=== PATIENT | female | born 1940 | race Caucasian/White ===

== ENCOUNTER 2018-05-14 05:02 | Inpatient (IN) ==
[2018-05-14] MEDS ORDERED: fentaNYL citrate 100 MCG/2 ML VIAL IV STA ×2 (05:20→07:53)
[2018-05-14 05:49] LABS: iSTAT Hemoglobin 14.6 g/dl (12.0-16.0); iSTAT Ionized Calcium 1.07 mmol/l (1.12-1.32)
[2018-05-14] MEDS ORDERED: IOVERSOL 100ml IV PRN (06:15)
--- NOTE | 2018-05-14 07:06 | CT Scan Report ---
CT hand RT w con HISTORY: 78 years-old Female large hematoma, trauma, back thru mid forearm patient presents with acu te pain and swelling of the right hand with reported soft tissue hematoma. Concern for soft tissue in fection. COMPARISON: Right wrist radiographs 10/07/2017 TECHNIQUE: Multiple axial CT images of the right hand were obtained following the intravenous adminis tration of 92 mL Optiray 320 IV contrast. A dose lowering technique was used consistent with the prin cipals of ALARA. FINDINGS: Study is limited secondary to positioning with patient's arm adjacent to the lateral right abdominal wall. Cholelithiasis incidentally noted. There is a large hematoma noted about the dorsum of the hand and wrist measuring up to 2.6 x 7.7 x 9.2 cm. Moderate subcutaneous edema with additional subcutaneo us hemorrhage tracks along the dorsum of the distal forearm. No opaque foreign body. Severe degenerative changes about the distal radioulnar joint with moderate triscaphe and first carpo metacarpal osteoarthritis. Mild radiocarpal osteoarthritis. Subcortical cystic changes are noted abou t the carpal bones. Moderate degenerative changes are seen throughout the interphalangeal joints with mild multidigit metacarpophalangeal osteoarthritis. No acute fracture or dislocation is identified. IMPRESSION: 1. Limited exam secondary to positioning. 2. No acute fracture or dislocation identified. 3. Large hematoma about the dorsum of the hand extending into the distal forearm measures up to 7.7 c m. 4. Osteopenia with degenerative changes as above. 5. Cholelithiasis. The above report was generated using voice recognition software. It may contain grammatical, syntax o r spelling errors. Electronically signed by: Ranjan Burden M.D. 05/14/2018 7:05 AM
--- NOTE | 2018-05-14 07:39 | Emergency Department Note ---
Entered by Randy Liao acting as a scribe for History of Present Illness General Chief complaint: Hand Injury/Pain Stated complaint: RIGHT HAND SWOLLEN,BRUISED HIT ON CUPPARD Time Seen by Provider: 05/14/18 05:06 Source: patient History of Present Illness Provider complaint: Hand pain Onset (ago): day(s) 2 Location: upper extremity Radiation: non-radiation Pain Consistency: + other (Worsening) Current Pain Intensity: 7 (7.5) Relieved By: + none Associated symptoms: + other (Dizziness) The patient is a 78 year old female who presents to the Emergency Room with complaints of worsening right hand pain and swelling that started 2 days ago, after hitting it against the cupboard. The patient is currently on Coumadin for her history of Afib and CHF and her last Coumadin level, which she took the day before this happened, was 2.4. She states when she first hit her hand she iced it, which did help. However yesterday at 11:00, her hand swelled and started hurting even more while she was typing on her computer. She currently rates the pain as a 7.5/10 and has tried Ibuprofen. She denies any numbness, tingling or radiating pain but does state she has been dizzy. Home Medications Home Medications Medication Instructions Recorded Confirmed Type aspirin [Aspir-81] 81 mg PO DAILY 05/14/18 05/14/18 History carvedilol 25 mg PO BID 05/14/18 05/14/18 History triamterene-hydrochlorothiazid 1 cap PO DAILY 05/14/18 05/14/18 History warfarin 3 mg PO 4XWK 05/14/18 05/14/18 History warfarin 4.5 mg PO 3XWK 05/14/18 05/14/18 History Allergies Allergy/AdvReac Type Severity Reaction Status Date / Time cephalexin Allergy . Verified 05/14/18 07:08 erythromycin base AdvReac Unknown ,HEARING Verified 05/14/18 07:05 LOSS Penicillins AdvReac Unknown Numbness Verified 05/14/18 07:07 Past Med/Surg History Medical History Atrial fibrillation Breast carcinoma CHF (congestive heart failure) Left bundle branch block (LBBB) Lyme disease Non-ischemic cardiomyopathy Surgical History AICD (automatic cardioverter/defibrillator) present H/O hysterectomy for benign disease History of cardioversion History of colonoscopy History of partial colectomy History of partial mastectomy of both breasts Family History Mother Breast CA Other Family history non-contributory Social History Current Living Situation: Alone Current Living Situation Comment: son with her today Other Information That Helps Us Care for You: No Feels Safe at Home: Yes Safety Concerns: Feels Safe At This Time Smoking Status: Former smoker Tobacco Type: cigarettes Do You Dip or Chew Tobacco: No Smoking End Date: 1980 Second Hand Exposure: No Tobacco Cessation Education Requested by Patient: No Hx Alcohol Use: Yes (wine) Alcohol type: wine Alcohol Intake Frequency: other Hx Substance Use: No Beliefs That Will Affect Care: None Preferred Language: Montserratian Communication Ability: Effective Research Worker Encyclopedia Required: No Review of Systems See HPI for pertinent positives & negatives. and A total of 10 systems reviewed and were otherwise negative Physical Exam Vital Signs Vital Signs - 24 hr 05/14/18 05:10 05/14/18 06:07 05/14/18 06:54 Temperature 36.5 C Temperature Source Oral Sepsis Recent Fever Within 48 Hours No Sepsis Action Taken by Nursing No Action Required Pulse Rate 75 Pulse Rate [Apical] Pulse Rate [Left Finger] 74 70 Pulse Rhythm [Apical] Pulse Rhythm [Left Finger] Regular Pulse Strength [Left Finger] Normal Respiratory Rate 18 18 18 Respiratory Effort / Characteristics Non-Labored Spontaneous Non-Labored Spontaneous Non-Labored Spontaneous Respiratory Depth Normal Normal Normal Respiratory Pattern Regular Regular Blood Pressure 158/100 H Blood Pressure [Left Arm] 135/89 139/85 Blood Pressure Mean 119 Blood Pressure Mean [Left Arm] 104 103 Blood Pressure Position Sitting Blood Pressure Position [Left Arm] Lying Pulse Oximetry 96 96 98 Oxygen Delivery Method Room Air Room Air Room Air Oxygen Flow Rate 05/14/18 07:59 05/14/18 10:03 05/14/18 12:15 Temperature Temperature Source Sepsis Recent Fever Within 48 Hours Sepsis Action Taken by Nursing Pulse Rate 80 Pulse Rate [Apical] Pulse Rate [Left Finger] 70 70 Pulse Rhythm [Apical] Pulse Rhythm [Left Finger] Pulse Strength [Left Finger] Respiratory Rate 18 18 20 Respiratory Effort / Characteristics Non-Labored Spontaneous Non-Labored Spontaneous Respiratory Depth Normal Normal Respiratory Pattern Regular Regular Blood Pressure 144/78 H Blood Pressure [Left Arm] 144/98 H 131/69 Blood Pressure Mean Blood Pressure Mean [Left Arm] 113 89 Blood Pressure Position Blood Pressure Position [Left Arm] Lying Lying Pulse Oximetry 100 98 96 Oxygen Delivery Method Room Air Room Air Room Air Oxygen Flow Rate 05/14/18 12:25 05/14/18 15:01 05/14/18 15:10 Temperature 36.6 C 36.9 C Temperature Source Oral Temporal Artery Scan Sepsis Recent Fever Within 48 Hours Sepsis Action Taken by Nursing Pulse Rate Pulse Rate [Apical] 71 70 Pulse Rate [Left Finger] 69 Pulse Rhythm [Apical] Regular Regular Pulse Rhythm [Left Finger] Regular Pulse Strength [Left Finger] Normal Respiratory Rate 20 12 17 Respiratory Effort / Characteristics Non-Labored Spontaneous Non-Labored Non-Labored Respiratory Depth Normal Normal Normal Respiratory Pattern Regular Regular Regular Blood Pressure Blood Pressure [Left Arm] 158/86 H 102/78 113/69 Blood Pressure Mean Blood Pressure Mean [Left Arm] 110 86 83 Blood Pressure Position Blood Pressure Position [Left Arm] Sitting Lying Lying Pulse Oximetry 98 100 99 Oxygen Delivery Method Room Air Oxymask Oxymask Oxygen Flow Rate 10 10 05/14/18 15:20 05/14/18 15:30 05/14/18 15:40 Temperature 36.6 C Temperature Source Temporal Artery Scan Sepsis Recent Fever Within 48 Hours Sepsis Action Taken by Nursing Pulse Rate Pulse Rate [Apical] 70 70 70 Pulse Rate [Left Finger] Pulse Rhythm [Apical] Regular Regular Regular Pulse Rhythm [Left Finger] Pulse Strength [Left Finger] Respiratory Rate 19 14 20 Respiratory Effort / Characteristics Non-Labored Non-Labored Non-Labored Respiratory Depth Normal Normal Normal Respiratory Pattern Regular Regular Regular Blood Pressure Blood Pressure [Left Arm] 124/79 133/71 126/70 Blood Pressure Mean Blood Pressure Mean [Left Arm] 94 91 88 Blood Pressure Position Blood Pressure Position [Left Arm] Lying Lying Lying Pulse Oximetry 99 97 97 Oxygen Delivery Method Oxymask Nasal Cannula Nasal Cannula Oxygen Flow Rate 10 2 2 05/14/18 16:00 05/14/18 16:38 05/14/18 17:17 Temperature 36.9 C 36.5 C 36.6 C Temperature Source Oral Oral Oral Sepsis Recent Fever Within 48 Hours Sepsis Action Taken by Nursing Pulse Rate Pulse Rate [Apical] 74 Pulse Rate [Left Finger] 71 69 Pulse Rhythm [Apical] Pulse Rhythm [Left Finger] Pulse Strength [Left Finger] Respiratory Rate 18 18 17 Respiratory Effort / Characteristics Non-Labored Spontaneous Respiratory Depth Normal Respiratory Pattern Blood Pressure Blood Pressure [Left Arm] 123/74 123/74 129/83 Blood Pressure Mean Blood Pressure Mean [Left Arm] 90 90 98 Blood Pressure Position Blood Pressure Position [Left Arm] Lying Lying Pulse Oximetry 97 95 93 Oxygen Delivery Method Nasal Cannula Nasal Cannula Nasal Cannula Oxygen Flow Rate 2 1 1 05/14/18 18:02 05/14/18 19:02 Temperature 36.5 C 36.7 C Temperature Source Oral Oral Sepsis Recent Fever Within 48 Hours Sepsis Action Taken by Nursing Pulse Rate Pulse Rate [Apical] Pulse Rate [Left Finger] 70 71 Pulse Rhythm [Apical] Pulse Rhythm [Left Finger] Pulse Strength [Left Finger] Respiratory Rate 17 17 Respiratory Effort / Characteristics Respiratory Depth Respiratory Pattern Blood Pressure Blood Pressure [Left Arm] 127/83 134/84 Blood Pressure Mean Blood Pressure Mean [Left Arm] 97 100 Blood Pressure Position Blood Pressure Position [Left Arm] Lying Lying Pulse Oximetry 92 93 Oxygen Delivery Method Room Air Room Air Oxygen Flow Rate GENERAL: alert, well appearing, well nourished, no distress, non-toxic EYE EXAM: normal conjunctiva, PERRL and EOM's grossly intact OROPHARYNX: no exudate, no erythema, lips, buccal mucosa, and tongue normal and mucous membranes are moist NECK: supple, no nuchal rigidity, no adenopathy, non-tender LUNGS: Clear to auscultation. Normal chest wall mechanics, no w/r/r HEART: no murmurs, S1 normal and S2 normal ABDOMEN: abdomen soft, non-tender, normo-active bowel sounds, no masses, no rebound or guarding. BACK: Back is symmetrical on inspection and there is no deformity, no midline tenderness, no CVA tenderness. SKIN: no rashes and no bruising UPPER EXTREMITIES: Right hand is markedly edematous and ecchymotic on the dorsal aspect, less erythema and ecchymosis on the distal dorsal aspect of the right forearm, edema without ecchymosis to palmar aspect of the right hand. Normal cap refill. No pain along flexor tendons. No other rash or sores. Normal radial pulse. No other upper extremity injury noted. LOWER EXTREMITIES: No pitting edema. FROM, nml pulses b/l. NEURO EXAM: Normal sensorium, cranial nerves II-XII grossly intact, normal speech, no gross weakness of arms, no gross weakness of legs. Course 0513: Past medical records reviewed. The patient was evaluated in room B06, and a complete history and physical examination were performed. 0730: Discussed all results with patient. Patient's right hand and wrist continue to swell and are now larger than on initial evaluation. Patient with no prior contact with orthopedic surgery. Discussed with her my concerns given worsening swelling and pain. 0815: Dr. Arroyo came to bedside to see and evaluate the patient. He feels patient should be taken to the operating room for drainage. Patient and family made aware of this. Pt to be kept NPO, no additional orders at this time. States their PA will come down to evaluate and fill out OR papers. Administered Medications Acetaminophen (Tylenol) 1,000 mg PO Q8H PENNY Stop: 06/13/18 17:59 Last Admin: 05/14/18 18:18 Dose: 1,000 mg Carvedilol (Coreg) 25 mg PO BID PENNY Stop: 06/13/18 20:59 Last Admin: 05/14/18 21:50 Dose: 25 mg Docusate Sodium (Colace) 100 mg PO BID PENNY Stop: 06/13/18 20:59 Last Admin: 05/14/18 21:50 Dose: Not Given Ferrous Gluconate (Ferrous Gluconate) 324 mg PO TIDM PENNY Stop: 06/13/18 16:59 Last Admin: 05/14/18 18:18 Dose: 324 mg Hydromorphone HCl (Dilaudid) 0.5 mg IV Q4H PRN PRN Reason: Pain Stop: 05/28/18 09:07 Last Admin: 05/14/18 16:50 Dose: 0.5 mg Sodium Chloride (Nss 1000ml) 1,000 mls @ 75 mls/hr IV .[id number] PENNY Stop: 06/13/18 14:29 Last Admin: 05/14/18 16:53 Dose: Not Given Potassium Chloride/Dextrose/Sod Cl (D5w And 1/2nss + 20meq Kcl) 20 meq in 1, 000 mls @ 100 mls/hr IV .Q10H PENNY Stop: 06/13/18 16:11 Last Admin: 05/14/18 18:16 Dose: 100 mls/hr Discontinued Medications Cefazolin Sodium (Ancef) 1 gm IV ONE ONE Stop: 05/14/18 08:09 Last Admin: 05/14/18 09:15 Dose: Not Given Fentanyl Citrate (Fentanyl Citrate) 50 mcg IV NOW STA Stop: 05/14/18 05:21 Last Admin: 05/14/18 05:29 Dose: 50 mcg Fentanyl Citrate (Fentanyl Citrate) 50 mcg IV NOW STA Stop: 05/14/18 07:54 Last Admin: 05/14/18 08:00 Dose: 50 mcg Fentanyl Citrate (Fentanyl Citrate) 25 mcg IV Q5M PRN PRN Reason: PACU Use Only-Pain Stop: 05/14/18 18:47 Last Admin: 05/14/18 15:20 Dose: 25 mcg Admin: 05/14/18 15:13 Dose: 25 mcg Admin: 05/14/18 15:07 Dose: 25 mcg Cefazolin Sodium (Ancef 1000mg) 1,000 mg in 7.5 mls @ 2.5 mls/min IV TODAY@ 0830 ONE Stop: 05/14/18 08:32 Last Admin: 05/14/18 09:14 Dose: 2.5 mls/min Clindamycin Phosphate 600 mg/ (Dextrose) 54 mls @ 108 mls/hr IV ONE ONE Stop: 05/14/18 09:59 Last Infusion: 05/14/18 10:26 Dose: 0 mls/hr Admin: 05/14/18 09:50 Dose: 108 mls/hr Ioversol (Optiray 320 100ml) 100 ml IV ONCE PRN PRN Reason: Interaction Checking Stop: 05/18/18 06:14 Last Admin: 05/14/18 06:15 Dose: 92 ml Medical Decision Making Differential Diagnosis Differential: Fracture, Dislocation, Cellulitis, Septic Joint, Ligamentous Injury, Effusion, DVT, amongst other pathologies entertained. Medical Records Attestation: I reviewed the patient's medical records. Home Medications Current Medication List: was personally reviewed by me Laboratory Data Attestation: I reviewed the patient's lab results. Lab Results 05/14/18 05/14/18 05/14/18 Range/Units 05:31 05:35 07:34 POC Hgb 14.6 (12.0-16.0) g/dl POC Hct 43 (37-47) % POC INR 2.1 H (0.9-1.1) POC Sodium 132 L (135-144) mEq/L POC Potassium 3.9 (3.3-5.0) mEq/L POC Chloride 95 L (101-112) mEq/L POC Total CO2 26 (24-31) mEq/l POC Anion Gap 16.0 (16-25) mmol/L POC BUN 15 (7-18) mg/dl POC Creatinine 0.8 (0.6-1.3) mg/dl POC Glucose (other) 103 H (70-99) mg/dl POC Ioniz Calcium Deanna 1.07 L (1.12-1.32) mmol/l 25-OH Vitamin D Total 21.2 L (30-100) ng/ml Blood Type Antibody Screen 05/14/18 Range/Units 08:36 POC Hgb (12.0-16.0) g/dl POC Hct (37-47) % POC INR (0.9-1.1) POC Sodium (135-144) mEq/L POC Potassium (3.3-5.0) mEq/L POC Chloride (101-112) mEq/L POC Total CO2 (24-31) mEq/l POC Anion Gap (16-25) mmol/L POC BUN (7-18) mg/dl POC Creatinine (0.6-1.3) mg/dl POC Glucose (other) (70-99) mg/dl POC Ioniz Calcium Deanna (1.12-1.32) mmol/l 25-OH Vitamin D Total (30-100) ng/ml Blood Type O Negative Antibody Screen NEGATIVE Imaging Data Radiologist's Impression: CT hand RT w con HISTORY: 78 years-old Female large hematoma, trauma, back thru mid forearm patient presents with acute pain and swelling of the right hand with reported soft tissue hematoma. Concern for soft tissue infection. COMPARISON: Right wrist radiographs 10/07/2017 TECHNIQUE: Multiple axial CT images of the right hand were obtained following the intravenous administration of 92 mL Optiray 320 IV contrast. A dose lowering technique was used consistent with the principals of LG. FINDINGS: Study is limited secondary to positioning with patient's arm adjacent to the lateral right abdominal wall. Cholelithiasis incidentally noted. There is a large hematoma noted about the dorsum of the hand and wrist measuring up to 2.6 x 7.7 x 9.2 cm. Moderate subcutaneous edema with additional subcutaneous hemorrhage tracks along the dorsum of the distal forearm. No opaque foreign body. Severe degenerative changes about the distal radioulnar joint with moderate triscaphe and first carpometacarpal osteoarthritis. Mild radiocarpal osteoarthritis. Subcortical cystic changes are noted about the carpal bones. Moderate degenerative changes are seen throughout the interphalangeal joints with mild multidigit metacarpophalangeal osteoarthritis. No acute fracture or dislocation is identified. IMPRESSION: 1. Limited exam secondary to positioning. 2. No acute fracture or dislocation identified. 3. Large hematoma about the dorsum of the hand extending into the distal forearm measures up to 7.7 cm. 4. Osteopenia with degenerative changes as above. 5. Cholelithiasis. The above report was generated using voice recognition software. It may contain grammatical, syntax or spelling errors. Electronically signed by: Ranjan Burden M.D. 05/14/2018 7:05 AM Blood Pressure Blood Pressure Findings: Elevated blood pressure Blood Pressure Disposition: further management by hospitalist [facility] Narrative Patient here well-appearing with exception of right hand. Area continue to swell while here. Labs reassuring, INR only 2.1. CT with no evidence of occult fracture or infection. Given worsening symptoms including patient's mention of slight paresthesias, slight pallor noted to distal fingers, and worsening pain, concern for possible evolving compartment syndrome. Or so paged and came to evaluate the patient at bedside. The plan is to take the patient to the operating room. Dr. Arroyo stated one of the PAs to be done to complete paperwork and do the admission. I ordered a preop EKG and chest x-ray as a precaution and added a type and screen given plan for our procedure. Pt aware of all results and in agreement with plan. Impression & Plan Contusion, Edema of hand Discharge Plan Visit Data *Final* Discharge Date/Time: 05/14/18 12:30 Chief Complaint: Hand Injury/Pain Stated Complaint: RIGHT HAND SWOLLEN,BRUISED HIT ON CUPPARD ED Provider: Jennifer Cross Discharge Problem: Contusion, Edema of hand Patient Disposition: Admitted As Inpatient Condition: Good Discharge Instructions Interventions: ED Discharge Assessment Last Done: 05/14/18 12:15 The scribe's documentation has been prepared under my direction and personally reviewed by me in its entirety. I confirm that the note above accurately reflects all work, treatment, procedures, and medical decision making performed by me.
[2018-05-14] MEDS ORDERED: KEFZOL SPECIAL PROCEDURE STOCK 1 GM ADDVIAL IV ONE (08:08)
[2018-05-14] MEDS ORDERED: CEFAZOLIN 1000MG 1,000 MG/7.5 ML SYR IV ONE (08:30)
--- NOTE | 2018-05-14 08:48 | XRay Report ---
XR chest 1V portable HISTORY: 78 years-old Female pre-op preoperative exam. No acute chest complaints COMPARISON: Chest radiograph 03/07/2015 TECHNIQUE: Portable AP view of the chest FINDINGS: Cardiac silhouette is enlarged, unchanged. Left subclavian pacer/AICD appears stable. Unchanged mild left hemidiaphragmatic elevation. Mild subsegmental left basilar atelectasis/scarring. There is no pn eumothorax, pleural effusion, focal airspace consolidation or overt pulmonary edema. Bones of the [address] appear grossly intact. Radiodense material is noted about the soft tissues of the lateral left j[address] wall and left supraclavicular distribution, possibly external to the patient. IMPRESSION: Cardiomegaly without acute process. The above report was generated using voice recognition software. It may contain grammatical, syntax o r spelling errors. Electronically signed by: Ranjan Burden M.D. 05/14/2018 8:47 AM
[2018-05-14] MEDS ORDERED: ONDANSETRON INJ 2 MG/ML 2 ML VIAL IV PRN ×2 (09:02→13:47)
--- NOTE | 2018-05-14 09:10 | History & Physical Report ---
Date of Service May 14, 2018 Assessment & Plan (1) Traumatic hematoma of right hand: Dr Arroyo Has evaluated the patient. She does not have a compartment syndrome at this time. Plans will be to do an open evacuation of hematoma today. History of Present Illness Chief Complaint: Pain right hand Primary Care Provider: NO PCP Patient is a 78-year-old white female who is on chronic Coumadin therapy due to atrial fibrillation. She states that on Friday while cooking in her kitchen , she ended up banging her hand on 1 of the covers. Over the next several days she began noticing increased swelling In the right hand. It became black and blue and continued to enlarge. It got to the point where she was having moderate pain in the hand and ice and elevation was no longer helping her. She states that her INR at the time of the injury was 2.4. Today is 2.1. Came to the emergency room and was seen by the staff. CT scan was done of the hand showing a large hematoma. We were asked to see this patient for this reason. Dr. Arroyo assessed the patient in the emergency room and plans are now to admit her and set her up for evacuation of hematoma of her right hand. Allergies Allergy/AdvReac Type Severity Reaction Status Date / Time cephalexin Allergy . Verified 05/14/18 07:08 erythromycin base AdvReac Unknown ,HEARING Verified 05/14/18 07:05 LOSS Penicillins AdvReac Unknown Numbness Verified 05/14/18 07:07 Home Medications Home Medications Medication Instructions Recorded Confirmed Type aspirin [Aspir-81] 81 mg PO DAILY 05/14/18 05/14/18 History carvedilol 25 mg PO BID 05/14/18 05/14/18 History triamterene-hydrochlorothiazid 1 cap PO DAILY 05/14/18 05/14/18 History warfarin 3 mg PO 4XWK 05/14/18 05/14/18 History warfarin 4.5 mg PO 3XWK 05/14/18 05/14/18 History Past Med/Surg History Medical History Atrial fibrillation Breast carcinoma CHF (congestive heart failure) Lyme disease Surgical History AICD (automatic cardioverter/defibrillator) present H/O hysterectomy for benign disease History of partial colectomy History of partial mastectomy of both breasts Family History Mother Breast CA Other Family history non-contributory Social History Feels Safe at Home: Yes Smoking Status: Former smoker Hx Alcohol Use: Yes (wine) Review of Systems Patient denies any recent fevers, chills, night sweats, unexplained weight loss or weight gain. No flu or cold-like symptoms. No increased cough or sputum production. No shortness of breath on exertion or at rest. No hemoptysis. Denies any chest pain, chest pressure, history of heart disease. Positive history of atrial fibrillation with implantable AICD. History of CHF. Past history of perforated colon with partial colectomy. States that she does get some bright red bleeding at certain times after a bowel movement. No nausea, vomiting, diarrhea. No history of hematemesis or melena. Denies any history of hepatitis or cholelithiasis. No unusual abdominal pain. Denies any history of hematuria, pyuria, dysuria. No history of renal calculi. No history of CVA , TIA, seizure disorders. Physical Exam 2 Vital Signs (Past 24 Hours): Last Vital Signs Temp 36.5 C 05/14/18 05:10 Pulse 70 05/14/18 07:59 Resp 18 05/14/18 07:59 BP 144/98 H 05/14/18 07:59 Pulse Ox 100 05/14/18 07:59 Constitutional: WD/WN, vitals as above Eyes: PERRL, conjunctivae normal, anicteric sclerae ENMT: external ear and nose normal, oropharynx normal Neck: trachea midline, no thyromegaly normal visual inspection Respiratory: normal respiratory effort, lungs clear to auscultation Cardiovascular: RRR, no murmur, no edema Implantable AICD noted left chest Gastrointestinal (Abdomen): normal bowel sounds, soft, nontender, no hepatosplenomegaly Musculoskeletal: On examination the patient's right hand and forearm,She has a moderate hematoma noted over the dorsum of the hand. She is swelling extending into the proximal portions of her fingers. The swelling in the dorsum of the hand is fairly tense. She has mild to moderate pain on palpation. Capillary refill is less than 2 seconds. She is able to move all 5 fingers however she cannot make a fist due to the amount of swelling she has. Does have swelling that goes over into the palmar aspect of her hand but not as severe as the dorsum. The swelling is contained to the dorsum of the hand and does extend to the wrist however she is able to actively and passively move the wrist at this point in time. He has no pain up in the forearm or elbow. Other injuries to the right upper extremity. Rest of the orthopedic exam is essentially benign left upper extremity is benign and has good range of motion of the shoulder elbows and wrist. Her extremities are nontender on palpation and her range of motion is within normal limits bilaterally. Sensation is completely intact in the fingers of the right hand.
[2018-05-14] MEDS ORDERED: CLINDAMYCIN 600 MG in DEXTROSE 5% 50 ML IV ONE (09:30)
--- NOTE | 2018-05-14 09:45 | Anesthesiology Consultation ---
Date of Service May 14, 2018 Assessment & Plan Chart Review Chart Review: Patient NOT seen in Pre Admission Testing and collision worker initiated Consults Requested none History Surgery Operation Date: 05/14/18 08:15 Proposed Procedures p Right Hand Evacuation Hematoma - Mauro Arroyo MD Height/Weight Height: 5 ft 10 in Weight: 87.9 kg Allergies Allergy/AdvReac Type Severity Reaction Status Date / Time cephalexin Allergy . Verified 05/14/18 07:08 erythromycin base AdvReac Unknown ,HEARING Verified 05/14/18 07:05 LOSS Penicillins AdvReac Unknown Numbness Verified 05/14/18 07:07 Medications Home Medications Medication Instructions Recorded Confirmed Last Taken aspirin [Aspir-81] 81 mg PO DAILY 05/14/18 05/14/18 Unknown carvedilol 25 mg PO BID 05/14/18 05/14/18 Unknown triamterene-hydrochlorothiazid 1 cap PO DAILY 05/14/18 05/14/18 Unknown warfarin 3 mg PO 4XWK 05/14/18 05/14/18 Unknown warfarin 4.5 mg PO 3XWK 05/14/18 05/14/18 Unknown Active Medications Generic Name Dose Route Start Last Admin Trade Name Freq PRN Reason Stop Dose Admin Ioversol 100 ml 05/14/18 06:15 05/14/18 06:15 Optiray 320 100ml IV 05/18/18 06:14 92 ml ONCE PRN Administration Interaction Checking Past Medical History Medical History Atrial fibrillation Breast carcinoma CHF (congestive heart failure) Left bundle branch block (LBBB) Lyme disease Non-ischemic cardiomyopathy Past Family History Family History Mother Breast CA Other Family history non-contributory Past Surgical History Surgical History AICD (automatic cardioverter/defibrillator) present H/O hysterectomy for benign disease History of cardioversion History of colonoscopy History of partial colectomy History of partial mastectomy of both breasts Social History Smoking Status: Former smoker Hx Alcohol Use: Yes (wine) Exercise / Class Metabolic Activity III < 4 Walking/Shop/Light housework Physical Exam Vital Signs Last Vital Signs Temp 36.6 C 05/14/18 12:25 Pulse 69 05/14/18 12:25 Resp 20 05/14/18 12:25 BP 158/86 H 05/14/18 12:25 Pulse Ox 98 05/14/18 12:25 Testing Electrocardiogram Date: 05/14/18 Atrial-sensed ventricular-paced rhythm @ 71bpm Biventricular pacemaker detected Abnormal ECG When compared with ECG of 24-FEB-2014 12:03, No significant change was found Chest X-Ray Date: 05/14/18 Findings: + cardiomegaly FINDINGS: Cardiac silhouette is enlarged, unchanged. Left subclavian pacer/AICD appears stable. Unchanged mild left hemidiaphragmatic elevation. Mild subsegmental left basilar atelectasis/scarring. There is no pneumothorax, pleural effusion, focal airspace consolidation or overt pulmonary edema. Bones of the chest appear grossly intact. Radiodense material is noted about the soft tissues of the lateral left chest wall and left supraclavicular distribution, possibly external to the patient. IMPRESSION: Cardiomegaly without acute process. Laboratory Results Blood Type O Negative 05/14/18 08:36 Antibody Screen NEGATIVE 05/14/18 08:36 05/14/18 05:35 POC Glucose (other) 103 H
[2018-05-14] MEDS ORDERED: fentaNYL citrate 100 MCG/2 ML VIAL ONE (13:01)
--- NOTE | 2018-05-14 13:34 | History & Physical Bridge Note ---
Date of Service May 14, 2018 History & Physical Bridge Note I have examined the patient, reviewed the History & Physical and in the interval since the performance of the History & Physical I have noted the following changes of clinical significance: no changes noted
[2018-05-14] MEDS ORDERED: LABETALOL HCL IV 5 MG/ML 20ML IV PRN (13:47)
[2018-05-14] MEDS ORDERED: ATROPINE SULFATE 0.1 MG/ML 10ML SYR IV PRN (13:47)
[2018-05-14] MEDS ORDERED: LIDOCAINE HCL 2% 2 ML VIAL/AMP(20MG/ML) INFIL ONE (14:45)
[2018-05-14] MEDS ORDERED: PROPOFOL IV EMULSION 10 MG/ML 20 ML VIAL IV ONE (14:45)
[2018-05-14] MEDS ORDERED: ONDANSETRON INJ 2 MG/ML 2 ML VIAL ONE (14:45)
[2018-05-14] MEDS ORDERED: DEXAMETHASONE SOD INJ 4 MG/ML VIAL ONE (14:45)
[2018-05-14] MEDS ORDERED: PHENYLEPHRINE 100MCG/ML 5ML SYR ONE (14:46)
[2018-05-14] MEDS ORDERED: ePHEDrine sulfate 50 MG/ML SYR ONE (14:46)
--- NOTE | 2018-05-14 15:06 | Operative Report ---
Post Operative Report Pre & Post Diagnosis Operation Date: 05/14/18 08:15 Pre-Op Diagnosis: Right hand hematoma Post-Op Diagnosis: Right hand hematoma Procedure Operation Date: 05/14/18 08:15 Actual Procedures p Right Hand Evacuation of Hematoma(Right) - Mauro Arroyo MD Surgeon Mauro Arroyo MD Grounds Cleaner None Estimated Blood Loss 0 (100ml of clot, 0ml new EBL) Findings Consistent with Post-Op Diagnosis Specimens None Complications none Disposition Accompanied Patient To Recovery: No Disposition: Recovery Room Indications Tense hematoma Description of Procedure Following the induction of adequate general anesthesia the patient's arm was exsanguinated with elevation and tourniquet inflated to 250 mils of mercury. Longitudinal incision was made roughly between the second and third metacarpals in the area of maximum ecchymosis and tension. Some black blisters were already noted to be forming and after this incision was made a copious amount of clot was evacuated. The clot tract into the first second webspace following removal of the clot significant tension about the thenar eminence and where his wrist was eliminated. Bulb syringe was used to clear any additional clot and suction was utilized to remove all clot the skin was closed using 4-0 nylon vertical mattress sutures these were purposely closed very loosely to allow exodus of any additional bleeding that were to occur a bulky dressing of 2 L 4 x 4's Kerlix and 2 inch Jacobo was applied. The patient tolerated the procedure well. I attest to the content of the Intraoperative Record and any orders documented therein. Any exceptions are noted below.
[2018-05-14] MEDS: fentaNYL citrate 100 MCG/2 ML VIAL IV PRN ×3 (15:07→15:20)
--- NOTE | 2018-05-14 15:38 | Anesthesiology Progress Note ---
Date of Service May 14, 2018 Anesthesia Post Procedure Vital Signs Vital Signs: Temp Pulse Pulse Pulse Resp BP BP 05/14/18 15:30 70 14 133/71 05/14/18 15:20 70 19 124/79 05/14/18 15:10 70 17 113/69 05/14/18 15:01 36.9 C 71 12 102/78 05/14/18 12:25 36.6 C 69 20 158/86 H 05/14/18 12:15 80 20 144/78 H 05/14/18 10:03 70 18 131/69 05/14/18 07:59 70 18 144/98 H 05/14/18 06:54 70 18 139/85 05/14/18 06:07 74 18 135/89 05/14/18 05:10 36.5 C 75 18 158/100 H Pulse Ox 05/14/18 15:30 97 05/14/18 15:20 99 05/14/18 15:10 99 05/14/18 15:01 100 05/14/18 12:25 98 05/14/18 12:15 96 05/14/18 10:03 98 05/14/18 07:59 100 05/14/18 06:54 98 05/14/18 06:07 96 05/14/18 05:10 96 Pain Intensity Right Hand: Pain Intensity: 3 Notes Mental Status: alert / awake / arousable Patient Amnestic to Procedure: Yes Nausea / Vomiting: adequately controlled Pain: adequately controlled Airway Patency, RR, SpO2: stable & adequate BP & HR: stable & adequate Hydration State: stable & adequate Anesthetic Complications: no major complications apparent
[2018-05-14] MEDS ORDERED: OXYCODONE HCL IR 5 MG TAB (IMMEDIATE RELEASE) PO PRN (16:12)
[2018-05-14] MEDS ORDERED: METOCLOPRAMIDE HCL INJ 5 MG/ML 2 ML VIAL IV PRN (16:12)
[2018-05-14] MEDS ORDERED: ALUMINUM/MAGNESIUM SUSP 30 ML UDC PO PRN (16:12)
[2018-05-14] MEDS ORDERED: MAGNESIUM HYDROXIDE SUSP 30 ML UDC PO PRN (16:12)
[2018-05-14] MEDS: HYDROmorphone INJ 0.5 MG/0.5 ML SYR IV PRN ×2 (16:50→23:59)
[2018-05-14] MEDS: SODIUM CHLORIDE 0.9% 1000ML 1,000 ML IV SCH (16:53)
[2018-05-14] MEDS: D5W AND 1/2NSS + 20MEQ KCL 20 MEQ/1,000 ML BAG IV SCH (18:16)
[2018-05-14] MEDS: FERROUS GLUCONATE 324 MG TAB PO SCH (18:18)
[2018-05-14] MEDS: ACETAMINOPHEN 500 MG TAB PO SCH (18:18)
[2018-05-14] MEDS: DOCUSATE SODIUM 100 MG CAP PO SCH (21:50)
[2018-05-14] MEDS: CARVEDILOL 25 MG TAB PO SCH (21:50)
--- NOTE | 2018-05-14 22:04 | Consultation ---
Date of Consultation May 14, 2018 Assessment & Plan (1) Traumatic hematoma of right hand: as per ortho Resume coumadin as per ortho (2) CHF (congestive heart failure): continue home meds (3) Afib: continue home meds Resume coumadin as per ortho (4) Breast cancer: Tx over 20 yrs ago, no current issues (5) Alcohol use: 1-2 glasses of wine most nights a week No hx of withdrawal Monitor (6) DVT prophylaxis: Resume coumadin as per ortho History of Present Illness Attending Physician: Mauro Arroyo MD History of Present Illness 78 y/o F who was admitted on 05/14 s/p R hand hematoma evacuation with Dr. Arroyo. Pt is doing well post-op. Tolerating PO without issue although she states she only ate about 1/2 of her dinner for fear of n/v. This did not happen Pt denies fever, SOB, chest pain, abd pain, c/d, LE swelling. Allergies Allergy/AdvReac Type Severity Reaction Status Date / Time cephalexin Allergy . Verified 05/14/18 07:08 erythromycin base AdvReac Unknown ,HEARING Verified 05/14/18 07:05 LOSS Penicillins AdvReac Unknown Numbness Verified 05/14/18 07:07 Home Medications Home Medications Medication Instructions Recorded Confirmed Type aspirin [Aspir-81] 81 mg PO DAILY 05/14/18 05/14/18 History carvedilol 25 mg PO BID 05/14/18 05/14/18 History triamterene-hydrochlorothiazid 1 cap PO DAILY 05/14/18 05/14/18 History warfarin 3 mg PO 4XWK 05/14/18 05/14/18 History warfarin 4.5 mg PO 3XWK 05/14/18 05/14/18 History Patient History Medical History Atrial fibrillation Breast carcinoma CHF (congestive heart failure) Left bundle branch block (LBBB) Lyme disease Non-ischemic cardiomyopathy Surgical History AICD (automatic cardioverter/defibrillator) present H/O hysterectomy for benign disease History of cardioversion History of colonoscopy History of partial colectomy History of partial mastectomy of both breasts Family History Mother Breast CA Other Family history non-contributory Social History Current Living Situation: Alone Current Living Situation Comment: son with her today Other Information That Helps Us Care for You: No Feels Safe at Home: Yes Safety Concerns: Feels Safe At This Time Smoking Status: Former smoker Tobacco Type: cigarettes Do You Dip or Chew Tobacco: No Smoking End Date: 1980 Second Hand Exposure: No Tobacco Cessation Education Requested by Patient: No Hx Alcohol Use: Yes (wine) Alcohol type: wine Alcohol Intake Frequency: other Hx Substance Use: No Beliefs That Will Affect Care: None Preferred Language: Icelandic Communication Ability: Effective Mold Shifter Required: No Review of Systems Pertinent positives and negatives reviewed in HPI--all others negative Physical Exam 2 Vital Signs (Past 24 Hours): Last Vital Signs Temp 36.7 C 05/14/18 19:02 Pulse 71 05/14/18 19:02 Resp 17 05/14/18 19:02 BP 134/84 05/14/18 19:02 Pulse Ox 93 05/14/18 19:02 Constitutional: WD/WN, vitals as above Eyes: normal visual miranda by confrontation and + anicteric sclerae Neck: normal visual inspection and trachea midline Respiratory: normal respiratory effort, lungs clear to auscultation Cardiovascular: Rate/Rhythm: regular rate and regular rhythm Gastrointestinal (Abdomen): Inspection/Auscultation: abdomen not distended Percussion/Palpation: abdomen soft; abdomen nontender Musculoskeletal: Head/Neck/Chest: normocephalic and head atraumatic negative for LE edema, peripheral pulses intact Skin: no rashes, warm and dry Neurologic: awake; not confused Speech / Cognition: normal speech Psychiatric: A+Ox3, euthymic affect Results & Data Diagnostic Findings CXR: neg for acute
[2018-05-15] MEDS: ACETAMINOPHEN 500 MG TAB PO SCH ×2 (02:14→10:16)
[2018-05-15] MEDS: D5W AND 1/2NSS + 20MEQ KCL 20 MEQ/1,000 ML BAG IV SCH ×2 (03:46→13:35)
[2018-05-15] MEDS: SODIUM CHLORIDE 0.9% 1000ML 1,000 ML IV SCH (03:47)
[2018-05-15] MEDS ORDERED: CLINDAMYCIN PHOS 900 MG/6 ML VIAL IV SCH (06:00)
--- NOTE | 2018-05-15 08:02 | Anesthesiology Progress Note ---
Date of Service May 15, 2018 Anesthesia Post Procedure Vital Signs Vital Signs: Temp Pulse Pulse Pulse Resp BP BP 05/15/18 03:48 36.5 C 70 14 101/58 L 05/14/18 23:41 36.9 C 72 16 118/74 05/14/18 19:02 36.7 C 71 17 134/84 05/14/18 18:02 36.5 C 70 17 127/83 05/14/18 17:17 36.6 C 69 17 129/83 05/14/18 16:38 36.5 C 74 18 123/74 05/14/18 16:00 36.9 C 71 18 123/74 05/14/18 15:40 36.6 C 70 20 126/70 05/14/18 15:30 70 14 133/71 05/14/18 15:20 70 19 124/79 05/14/18 15:10 70 17 113/69 05/14/18 15:01 36.9 C 71 12 102/78 05/14/18 12:25 36.6 C 69 20 158/86 H 05/14/18 12:15 80 20 144/78 H 05/14/18 10:03 70 18 131/69 Pulse Ox 05/15/18 03:48 92 05/14/18 23:41 93 05/14/18 19:02 93 05/14/18 18:02 92 05/14/18 17:17 93 05/14/18 16:38 95 05/14/18 16:00 97 05/14/18 15:40 97 05/14/18 15:30 97 05/14/18 15:20 99 05/14/18 15:10 99 05/14/18 15:01 100 05/14/18 12:25 98 05/14/18 12:15 96 05/14/18 10:03 98 Pain Intensity Right Hand: Pain Intensity: 1 Notes Mental Status: alert / awake / arousable and participated in evaluation Patient Amnestic to Procedure: Yes Nausea / Vomiting: adequately controlled Pain: adequately controlled Airway Patency, RR, SpO2: stable & adequate BP & HR: stable & adequate Hydration State: stable & adequate Anesthetic Complications: no major complications apparent and Pt Satisfied with anesthetic care
[2018-05-15] MEDS: FERROUS GLUCONATE 324 MG TAB PO SCH ×2 (08:45→12:41)
[2018-05-15] MEDS: CARVEDILOL 25 MG TAB PO SCH (08:45)
[2018-05-15] MEDS: DOCUSATE SODIUM 100 MG CAP PO SCH (08:45)
[2018-05-15] MEDS ORDERED: ASPIRIN 81 MG ECTAB PO SCH (09:00)
[2018-05-15] MEDS ORDERED: MULTIVITAMIN TAB PO SCH (09:00)
[2018-05-15] MEDS ORDERED: TRIAMTERENE/HCTZ 37.5/25MG CAP PO SCH (09:00)
[2018-05-15] MEDS ORDERED: PANTOprazole 40 MG TAB PO SCH (09:00)
[2018-05-15 09:45] LABS: Hematocrit (blood only) 38.7 % (37-47); Hemoglobin 12.9 g/dL (12.0-16.0); Mean Corpuscular Hgb Conc 33.3 g/dL (32-36); Mean Corpuscular Volume 94.9 fL (80-100); Platelet Count 153 K/uL (130-400); RDW Coefficient of Variation 14.1 % (11.5-14.5); RDW Standard Deviation 48.4 fL (36.4-46.3); Red Blood Count 4.08 M/uL (4.2-5.4)
[2018-05-15 09:57] LABS: INR 2.4 (0.9-1.1); Prothrombin Time 22.8 Seconds (9.0-12.0)
[2018-05-15 10:15] LABS: BUN Creatinine Ratio 14.9 (10-20); Calcium 8.4 mg/dl (8.5-10.1); Est GFR (Non-African American) 55.3; Magnesium 1.9 mg/dl (1.8-2.4); Potassium 3.9 mmol/L (3.5-5.1)
[2018-05-15] MEDS ORDERED: CHOLECALCIFEROL 1,000 UNITS TAB PO SCH (10:15)
--- NOTE | 2018-05-20 01:27 | Discharge Summary ---
DISCHARGE DIAGNOSIS: Right hand hematoma. SECONDARY DIAGNOSES: Atrial fibrillation on chronic Coumadin therapy, breast carcinoma in the past, congestive heart failure, Lyme disease. CONSULTS: Mary Canales MD COMPLICATIONS: None. PROCEDURES: Evacuation of hematoma, right hand by Dr. Arroyo on 05/14/2018. BRIEF HISTORY: As dictated in history and physical. HOSPITAL SUMMARY: The patient was admitted on the above-noted date with the above-noted hematoma in the right hand. The hematoma was going to need evacuation and the patient was then taken to surgery on the same day by Dr. Arroyo. The above-noted procedures performed, which she tolerated well. The patient was seen on the first postoperative day, late in the afternoon and the dressing was changed. Her swelling was much improved and she had a better range of motion of her fingers and less swelling in her fingers. Sensation was intact and capillary refill is less than 2 seconds. The wound was redressed and the patient was remaining stable. She was ambulating independently and it was felt she could be discharged to home. For further review, please see chart. LABORATORY AND X-RAY DATA: As per chart. DISCHARGE INSTRUCTIONS: The patient was discharged to home in satisfactory condition on 05/15/2018. DIET: Regular. ACTIVITY: Nonweightbearing right hand. Follow instructions as written. Follow up with Dr. Arroyo in 7-10 days. The patient to call for appointment if one has not been made for you. DISCHARGE MEDICATIONS: Acetaminophen 1000 mg p.o. q. 8 hours, doxycycline 100 mg p.o. b.i.d., oxycodone 5 mg p.o. q. 4 hours p.r.n. Resume home meds as listed including her warfarin and resume regular INR testing to maintain therapeutic INR.
--- NOTE | 2018-05-21 12:30 | History & Physical Bridge Note ---
Date of Service May 21, 2018 History & Physical Bridge Note I have examined the patient, reviewed the History & Physical and in the interval since the performance of the History & Physical I have noted the following changes of clinical significance: no changes noted
== END 2018-05-15 16:15 | disposition home or self-care (01) ==
LOC: ED 05:02 → ASU 12:30 → 3W 12:30 → OBSVTOIN 12:31 → 3W 12:31 → INTOOBSV 12:31

== ENCOUNTER 2018-05-21 10:51 | Inpatient (IN) ==
--- NOTE | 2018-05-20 14:30 | History and Physical Report ---
DATE OF ADMISSION: 05/21/2018 CHIEF COMPLAINT: Recurrent hematoma, right hand. HISTORY OF PRESENT ILLNESS: The patient is a 78-year-old female approximately 6 days status post evacuation of hematoma dorsal right hand by Dr. Arroyo. She presented today for postop evaluation. Examination revealed reaccumulation of her hematoma, not as tense as prior. Dr. Arroyo recommended a repeat evacuation of the hematoma. PAST MEDICAL HISTORY: Atrial fibrillation, depression, hypertension. PAST SURGICAL HISTORY: Right hand as above, hysterectomy, partial colectomy, partial mastectomy both breasts. MEDICATIONS: Coumadin daily as directed, carvedilol 25 mg 2 times daily, Prozac 20 mg daily, triamterene-HCTZ 37.5/25 daily, aspirin 81 mg daily. ALLERGIES: CEPHALEXIN, ERYTHROMYCIN AND PENICILLIN. SOCIAL HISTORY AND REVIEW OF SYSTEMS: Noncontributory. PHYSICAL EXAMINATION: GENERAL: Well-nourished, well-developed female who appears stated age. HEENT: Normocephalic, atraumatic, extraocular movements intact, oropharynx pink and moist. NECK: Supple without adenopathy. LUNGS: Clear to auscultation bilaterally. HEART: Regular rate and rhythm. ABDOMEN: Soft, nontender, nondistended. EXTREMITIES: The right dorsal hand shows a surgical wound with [address] There is some eschar in the lateral aspect of the incision. There is recurrent hematoma not as tense as prior. No evidence of compartment syndrome. ASSESSMENT: Recurrent hematoma, right dorsal hand. PLAN: Risks versus benefits were discussed. Consent was obtained. Dr. Arroyo recommending repeat evacuation of hematoma. The would like her to hold her Coumadin. He is going to order 5 mg of p.o. vitamin K. We will proceed as indicated.
--- NOTE | 2018-05-20 15:21 | Anesthesiology Consultation ---
Date of Service May 20, 2018 Assessment & Plan (1) Encounter for pre-operative examination: Plan: CHECK PT/INR/PTT Chart Review Chart Review: Acceptable Risk for Surgery and Patient NOT seen in Pre Admission Testing History Surgery Operation Date: 05/21/18 13:05 Proposed Procedures p Right Hand Evacuation of Hematoma - Mauro Arroyo MD Height/Weight Height: 5 ft 10 in Weight: 90.718 kg Allergies Allergy/AdvReac Type Severity Reaction Status Date / Time cephalexin Allergy Mild VAGINAL Verified 05/20/18 14:39 ITCHING erythromycin base AdvReac Unknown ,HEARING Verified 05/20/18 14:39 LOSS Penicillins AdvReac Unknown Numbness Verified 05/20/18 14:39 Medications Home Medications Medication Instructions Recorded Confirmed Last Taken aspirin [Aspir-81] 81 mg PO DAILY 05/14/18 05/20/18 Unknown carvedilol 25 mg PO BID 05/14/18 05/20/18 Unknown triamterene-hydrochlorothiazid 1 cap PO DAILY 05/14/18 05/20/18 Unknown warfarin 3 mg PO 4XWK 05/14/18 05/20/18 Unknown warfarin 4.5 mg PO 3XWK 05/14/18 05/20/18 Unknown acetaminophen [Pain Reliever] 1,000 mg PO Q8H 7 Days #42 tab 05/15/18 05/20/18 Unknown oxycodone 5 mg PO Q4H PRN #18 tab 05/15/18 05/20/18 Unknown hydrocodone-acetaminophen [[place]rightwood] 1 - 2 tab PO Q6H PRN 05/20/18 05/20/18 Unknown Past Medical History Medical History Atrial fibrillation Permanent. S/P BiV ICD 2010, rate controlled by AV calos ablation 2013. Breast carcinoma CHF (congestive heart failure) Chronic systolic, EF 40-45% Left bundle branch block (LBBB) Lyme disease Non-ischemic cardiomyopathy s/p Bi-V ICD implantation 2010. EF 40-45% Past Family History Family History Mother Breast CA Other Family history non-contributory Past Surgical History Surgical History AICD (automatic cardioverter/defibrillator) present H/O hysterectomy for benign disease History of cardiac cath [facility] History of cardiac radiofrequency ablation After failed cardioversion, AV calos ablation 02/24/2014 History of cardioversion 01/2014 for A fib. Was in NSR for less than 24hrs. History of colonoscopy History of partial colectomy History of partial mastectomy of both breasts Past Anesthesia History 05/14/18 Hand I+D LMA #4, no issues noted in record. Social History Smoking Status: Former smoker tobacco type: cigarettes Smoking End Date: 30 PLUS YR AGO Hx Alcohol Use: Yes Alcohol type: wine alcohol intake frequency: other Hx Substance Use: No Testing Electrocardiogram Date: 05/14/18 Ventricular paced rhythm at 71 bpm. Biventricular pacemaker detected. No change compared to 2013 EKG. Chest X-Ray Date: 05/14/17 Findings: + NAD and + cardiomegaly Echocardiogram Date: 12/10/16 EF: 45% Left ventricular systolic function is mildly reduced. No regional wall motion abnormalities noted. Mild AR and MR. There is mild to moderate tricuspid regurg. Moderate biatrial enlargement. Other Testing Pacer/ICD Check 03/16/18 [employer], implanted 08/12/13. Mode: VVIR. 70-130. 100% Bi-V paced. Laboratory Results Laboratory Tests 05/15/18 05/15/18 05/17/18 09:31 09:31 18:32 WBC 7.10 Hgb 12.9 Hct 38.7 Plt Count 153 PT 19.6 H INR 2.0 H Sodium 131 L Potassium 3.9 Chloride 98 Carbon Dioxide 25 BUN 15 Creatinine 0.98 Glucose 150 H
[~2018-05-21 10:51] MED LIST: LR 15ML/HR IV SCH; VANCOMYCIN HCL 1,000 MG/270 ML BAG IV SCH
[2018-05-21 11:42] LABS: INR 1.3 (0.9-1.1); Partial Thromboplastin Ratio 1.2; Partial Thromboplastin Time 30.5 Seconds (21.0-31.0); Prothrombin Time 13.2 Seconds (9.0-12.0)
[2018-05-21] MEDS ORDERED: ONDANSETRON INJ 2 MG/ML 2 ML VIAL ONE (11:54)
[2018-05-21] MEDS ORDERED: MIDAZOLAM HCL 1 MG/ML 2ML VIAL ONE (11:54)
[2018-05-21] MEDS ORDERED: DEXAMETHASONE SOD INJ 4 MG/ML VIAL ONE (11:54)
[2018-05-21] MEDS ORDERED: fentaNYL citrate 100 MCG/2 ML VIAL ONE (11:54)
[2018-05-21] MEDS ORDERED: LIDOCAINE HCL 2% 2 ML VIAL/AMP(20MG/ML) INFIL ONE (11:54)
[2018-05-21] MEDS ORDERED: PROPOFOL IV EMULSION 10 MG/ML 20 ML VIAL IV ONE (11:54)
[2018-05-21] MEDS ORDERED: BACITRACIN INJ 50,000 UNIT VIAL ONE (13:35)
[2018-05-21] MEDS ORDERED: LABETALOL HCL IV 5 MG/ML 20ML IV PRN (13:42)
[2018-05-21] MEDS ORDERED: ATROPINE SULFATE 0.1 MG/ML 10ML SYR IV PRN (13:42)
[2018-05-21] MEDS ORDERED: PROMETHAZINE HCL 12.5 MG in SODIUM CHLORIDE 0.9% 50 ML IV PRN (13:42)
[2018-05-21] MEDS ORDERED: NALOXONE HCL 0.4 MG/1 ML VIAL/CARP IV PRN ×2 (13:42→15:44)
[2018-05-21] MEDS ORDERED: ePHEDrine sulfate 50 MG/ML AMP IV PRN (13:42)
[2018-05-21] MEDS ORDERED: FLUMAZENIL 0.1 MG/1 ML 10 ML VIAL IV PRN (13:42)
[2018-05-21] MEDS ORDERED: ONDANSETRON INJ 2 MG/ML 2 ML VIAL IV PRN ×2 (13:42→15:44)
--- NOTE | 2018-05-21 14:28 | Operative Report ---
Post Operative Report Pre & Post Diagnosis Operation Date: 05/21/18 13:05 Pre-Op Diagnosis: Contusion of Right Hand Post-Op Diagnosis: Contusion of Right Hand Procedure Operation Date: 05/21/18 13:05 Actual Procedures p Right Hand Evacuation of Hematoma(Right) - Mauro Arroyo MD Surgeon Mauro Arroyo MD Author None Estimated Blood Loss 5 Findings Consistent with Post-Op Diagnosis Specimens None Complications none Disposition Accompanied Patient To Recovery: No Disposition: Recovery Room Indications Recurrent hematoma Description of Procedure Patient's right hand was prepped and draped in usual sterile manner. The previously made incision was reopened with blunt dissection only. Again significant hematoma was evacuated. A pulse via bulb syringe was utilized with roughly 500 cc of fluid ensuring removal of all clotted blood. 5 cc of FloSeal was obtained and injected in the wound was closed using 2 3-0 nylon simple sutures very loosely. Sterile dressing of Xeroform 4 x 4's 2 L Kerlix and a 2 inch Jacobo compression was applied. The patient tolerated the procedure well. I attest to the content of the Intraoperative Record and any orders documented therein. Any exceptions are noted below.
[2018-05-21] MEDS: HYDROmorphone INJ 1 MG/ML SYRINGE IV PRN ×4 (14:44→14:59)
[2018-05-21] MEDS ORDERED: FLOSEAL HEMOSTATIC MATRIX 5ML TOP ONE (14:47)
--- NOTE | 2018-05-21 15:23 | Anesthesiology Progress Note ---
Date of Service May 21, 2018 Anesthesia Post Procedure Vital Signs Vital Signs: Temp Pulse Pulse Resp BP Pulse Ox 05/21/18 15:20 36.5 C 70 14 125/70 99 05/21/18 15:10 70 11 L 121/72 99 05/21/18 15:00 70 24 113/65 95 05/21/18 14:50 70 19 110/69 100 05/21/18 14:40 71 18 112/66 99 05/21/18 14:31 36.5 C 78 18 113/71 100 05/21/18 11:40 36.8 C 71 18 124/75 93 Pain Intensity Right Hand: Pain Intensity: 3 Notes Mental Status: alert / awake / arousable Patient Amnestic to Procedure: Yes Nausea / Vomiting: adequately controlled Pain: adequately controlled Airway Patency, RR, SpO2: stable & adequate BP & HR: stable & adequate Hydration State: stable & adequate Anesthetic Complications: no major complications apparent
[2018-05-21] MEDS ORDERED: MAGNESIUM HYDROXIDE SUSP 30 ML UDC PO PRN (15:44)
[2018-05-21] MEDS ORDERED: METOCLOPRAMIDE HCL INJ 5 MG/ML 2 ML VIAL IV PRN (15:44)
[2018-05-21] MEDS ORDERED: VANCOMYCIN CONSULT ACTIVE PRN (15:44)
[2018-05-21] MEDS ORDERED: BISACODYL 10 MG SUPP PR PRN (15:44)
[2018-05-21] MEDS: OXYCODONE HCL IR 5 MG TAB (IMMEDIATE RELEASE) PO PRN ×2 (17:59→22:18)
[2018-05-21] MEDS: SODIUM CHLORIDE 0.9% 1000ML 1,000 ML IV SCH (20:12)
[2018-05-21] MEDS: CARVEDILOL 25 MG TAB PO SCH (20:21)
[2018-05-21] MEDS: DOCUSATE SODIUM 100 MG CAP PO SCH ×2 (20:21→20:25)
[2018-05-21] MEDS ORDERED: SENNA 8.6 MG TAB PO SCH (21:00)
[2018-05-21] MEDS: ACETAMINOPHEN 500 MG TAB PO SCH (22:20)
[2018-05-22] MEDS ORDERED: VANCOMYCIN HCL 1,500 MG in SODIUM CHLORIDE 0.9% 500 ML IV SCH
[2018-05-22] MEDS: OXYCODONE HCL IR 5 MG TAB (IMMEDIATE RELEASE) PO PRN ×3 (04:52→12:40)
[2018-05-22] MEDS ORDERED: Nursing to Pharmacy Communication ONE (05:01)
[2018-05-22] MEDS: SODIUM CHLORIDE 0.9% 1000ML 1,000 ML IV SCH (05:02)
[2018-05-22] MEDS: ACETAMINOPHEN 500 MG TAB PO SCH (05:03)
--- NOTE | 2018-05-22 07:59 | Orthopedic Progress Note ---
Date of Service May 22, 2018 Assessment & Plan (1) Traumatic hematoma of right hand: Postop day 1 status post recurrent hematoma right hand. We will continue the compressive dressing at this point in time. Dr Arroyo would like the patient to be off her Coumadin for approximately 5 days at least to keep the hand from reaccumulating again. I will put a call to Dr. Luke office to discuss her Coumadin. Subjective Postop day 1 status post irrigation and debridement right hand. Patient is sitting up in a chair at the bedside. She is awake and alert and oriented. Pain is controlled. She has no overt complaints at this time. We have discussed her Coumadin usage. She is wondering if she needs to continue her Coumadin or if she can be off of it at this point in time. We discussed that she would have to discuss this with Dr. Frank. Physical Exam 2 Vital Signs (Past 24 Hours): Last Vital Signs Temp 36.4 C L 05/22/18 07:08 Pulse 69 05/22/18 07:08 Resp 16 05/22/18 07:08 BP 110/68 05/22/18 07:08 Pulse Ox 95 05/22/18 07:08 Physical Exam: Dressings are clean dry and intact. I can see some mild bloody drainage noted on the Kerlix dressing under the Jacobo but this has not come through onto the 80s. Fingers are mildly swollen. Capillary refill is less than 2 seconds and she has good sensation. All fingers are mobile and have good range of motion.
[2018-05-22] MEDS ORDERED: ASPIRIN 81 MG ECTAB PO SCH (09:00)
[2018-05-22] MEDS ORDERED: TRIAMTERENE/HCTZ 37.5/25MG CAP PO SCH (09:00)
[2018-05-22] MEDS ORDERED: MULTIVITAMIN TAB PO SCH (09:00)
[2018-05-22] MEDS: CARVEDILOL 25 MG TAB PO SCH (09:09)
[2018-05-22] MEDS: DOCUSATE SODIUM 100 MG CAP PO SCH (09:11)
--- NOTE | 2018-05-22 09:48 | Anesthesiology Progress Note ---
Date of Service May 22, 2018 Anesthesia Post Procedure Vital Signs Vital Signs: Temp Pulse Pulse Pulse Resp BP Pulse Ox 05/22/18 07:08 36.4 C L 69 16 110/68 95 05/22/18 02:47 36.6 C 79 16 127/76 92 05/21/18 23:03 36.8 C 69 14 113/72 92 05/21/18 20:19 73 131/78 05/21/18 18:55 36.8 C 69 18 110/65 94 05/21/18 17:39 36.5 C 70 16 143/84 H 99 05/21/18 16:44 36.5 C 71 16 126/80 100 05/21/18 16:10 70 16 127/81 99 05/21/18 15:40 36.9 C 72 14 125/76 99 05/21/18 15:30 70 12 117/71 97 05/21/18 15:20 36.5 C 70 14 125/70 99 05/21/18 15:10 70 11 L 121/72 99 05/21/18 15:00 70 24 113/65 95 05/21/18 14:50 70 19 110/69 100 05/21/18 14:40 71 18 112/66 99 05/21/18 14:31 36.5 C 78 18 113/71 100 05/21/18 11:40 36.8 C 71 18 124/75 93 Pain Intensity Right Hand: Pain Intensity: 3 Notes Mental Status: alert / awake / arousable Patient Amnestic to Procedure: Yes Nausea / Vomiting: adequately controlled Pain: adequately controlled Airway Patency, RR, SpO2: stable & adequate BP & HR: stable & adequate Hydration State: stable & adequate Anesthetic Complications: no major complications apparent
--- NOTE | 2018-05-28 09:09 | Discharge Summary ---
CHIEF COMPLAINT: Recurrent hematoma, right hand. Please see complete history and physical examination. HOSPITAL COURSE: The patient underwent repeat evacuation of hematoma, right dorsal hand without complication. She tolerated the procedure well and discharged to recovery room in stable condition. Her postop course was relatively uneventful. Her postop pain was well controlled with a combination of IV and oral pain medications. Dr. Arroyo was recommending she hold her Coumadin for approximately 5 days, but this will need to be discussed with Dr. Ramos to get his approval and recommendations. She was discharged home on postop day 1. She will do daily dressing change and follow up in our office in approximately 10-14 days for initial postop evaluation.
== END 2018-05-22 15:40 | disposition home or self-care (01) | DRG 605 ==
LOC: ASU 10:51 → 3E 14:16

== ENCOUNTER 2020-10-03 21:25 | Inpatient (IN) ==
--- NOTE | 2020-10-03 22:06 | Emergency Department Note ---
History of Present Illness General Chief complaint: Illness Time Seen by Provider: 10/03/20 21:55 Source: patient Mode of arrival: ambulatory Limitations: no limitations History of Present Illness Provider complaint: Weakness The patient is an 80-year-old female who presents to the ED with a chief complaint of gradual loss of energy and stamina. She states this is been going on for at least the past 10 days. She also reports an episode of indigestion associate with vomiting 10 days ago. . She feels that her symptoms started at that time. She states that she is on Eliquis for chronic A. fib. She did take some Pepto-Bismol early on but has not been taking it but has noticed black stools since that time. She states that she is concerned about her heart and wanted to make sure that her heart is okay and not causing her symptoms. She has no other complaints at this time. Home Medications Medication Instructions Recorded Confirmed Type carvedilol 25 mg tablet 25 mg PO BID #180 tab 01/06/20 10/03/20 Rx rivaroxaban 20 mg tablet 20 mg PO PM #90 tab 01/06/20 10/03/20 Rx triamterene 37.5 1 cap PO DAILY #90 cap 01/06/20 10/03/20 Rx mg-hydrochlorothiazide 25 mg capsule furosemide 20 mg tablet 20 mg PO DAILY PRN #30 tab 07/31/20 10/03/20 Rx Allergies Allergy/AdvReac Type Severity Reaction Status Date / Time cephalexin Allergy Mild VAGINAL Verified 10/03/20 21:56 ITCHING erythromycin base AdvReac Unknown ,HEARING Verified 10/03/20 21:56 LOSS Penicillins AdvReac Unknown Numbness Verified 10/03/20 21:56 Past Med/Surg History Medical History (Updated 10/03/20 @ 23:21 by Erick Botello DO) Atrial fibrillation Permanent. S/P BiV ICD 2010, rate controlled by AV calos ablation 2013. Breast carcinoma CHF (congestive heart failure) Chronic systolic, EF 40-45% Left bundle branch block (LBBB) Lyme disease Non-ischemic cardiomyopathy s/p Bi-V ICD implantation 2010. EF 40-45% Surgical History AICD (automatic cardioverter/defibrillator) present H/O hysterectomy for benign disease History of cardiac cath [facility] History of cardiac radiofrequency ablation After failed cardioversion, AV calos ablation 02/24/2014 History of cardioversion 01/2014 for A fib. Was in NSR for less than 24hrs. History of colonoscopy History of hand surgery right hand History of partial colectomy History of partial mastectomy of both breasts Family History Mother Breast cancer Other Family history non-contributory Social History Smoking Status: Former smoker Tobacco Type: Cigarettes Second Hand Exposure: No; Hx Alcohol Use: Yes Alcohol type: wine and hard liquor Hx Substance Use: No Preferred Language: Turkmen Communication Ability: Effective Visual Impairment: No Limitations Cable Stretcher And Tester Required: No Beliefs That Will Affect Care: None Current Living Situation: Family Current Living Situation Comment: lives with son Feels Safe at Home: Yes Assistive Devices: Cane, Denture - Upper and Glasses Review of Systems A total of 10 systems reviewed and were otherwise negative Physical Exam Vital Signs Vital Signs - 24 hr 10/03/20 21:32 10/03/20 21:46 10/03/20 22:20 Temperature 36.7 C Temperature Source Oral Pulse Rate 71 74 73 Pulse Rate from SpO2 Sensor 71 Pulse Rhythm Regular Regular Pulse Strength Normal Respiratory Rate 16 18 13 Respiratory Effort / Characteristics Non-Labored Respiratory Depth Normal Respiratory Pattern Regular Blood Pressure 110/59 L 110/59 L Blood Pressure Mean 76 76 Blood Pressure Position Lying Pulse Oximetry 98 99 100 Oxygen Delivery Method Room Air Room Air Sepsis Recent Fever Within 48 Hours No Sepsis New/Unexplained Change in Mental Status No Sepsis Action Taken by Nursing No Action Required 10/03/20 22:23 10/03/20 22:41 Temperature Temperature Source Pulse Rate 74 70 Pulse Rate from SpO2 Sensor 74 70 Pulse Rhythm Pulse Strength Respiratory Rate 13 23 Respiratory Effort / Characteristics Respiratory Depth Respiratory Pattern Blood Pressure 121/44 L 108/53 L Blood Pressure Mean 69 71 Blood Pressure Position Pulse Oximetry 100 97 Oxygen Delivery Method Sepsis Recent Fever Within 48 Hours Sepsis New/Unexplained Change in Mental Status Sepsis Action Taken by Nursing CONSTITUTIONAL/VITAL SIGNS: Reviewed / noted above. GENERAL: Non-toxic in appearance. INTEGUMENTARY: Warm, dry, and pale. HEAD: Normocephalic. EYES: without scleral icterus or trauma. ENT/OROPHARYNX: clear and moist. LYMPHADENOPATHY/NECK: Is supple without lymphadenopathy or meningismus. RESPIRATORY: Lungs clear and equal. CARDIOVASCULAR: Regular rate and rhythm. GI/ABDOMEN: Soft and nontender. No organomegaly or pulsatile mass. No rebound or guarding. Normal bowel sounds. EXTREMITIES: Warm and well perfused. BACK: No CVA tenderness. NEUROLOGICAL: Intact without focal deficits. PSYCHIATRIC: normal affect. MUSCULOSKELETAL: Normally developed with good muscle tone. TRIAGE NURSING DOCUMENTATION REVIEWED. Critical Care Time Critical Care Time: Yes Total Critical Care Time: 40 I have personally spent 40 minutes of critical care time in the direct management of this patient. This includes bedside care, interpretation of diagn ostic studies, and testing, discussion with consultants, patient, and family members, and other required patient management activities. This 40 minutes is in excess of all separately billable procedures. Medical Decision Making Differential Diagnosis Differential includes acute coronary syndrome, myocardial infarction, CVA, TIA, anemia, infection, pneumonia, UTI, pyelonephritis, poor nutrition, dehydration, electrolyte disturbance,hypoglycemia. Medical Records Attestation: I reviewed the patient's medical records. Home Medications Current Medication List: was personally reviewed by me Laboratory Data Attestation: I reviewed the patient's lab results. Result diagrams: 10/03/20 22:22 10/03/20 22:22 Lab Results 10/03/20 10/03/20 Range/Units 22:22 22:22 WBC 10.61 (4.8-10.8) K/uL RBC 1.67 L (4.2-5.4) M/uL Hgb 4.8 L* (12.0-16.0) g/dL Hct 15.2 L* (37-47) % MCV 91.0 (80-100) fL MCH 28.7 (25-34) pg MCHC 31.6 L (32-36) g/dL RDW Std Deviation 47.8 H (36.4-46.3) fL RDW Coeff of Yogesh 14.4 (11.5-14.5) % Plt Count 339 (130-400) K/uL MPV 8.6 (7.4-10.4) fL Immature Gran % (Auto) 0.6 % Neut % (Auto) 73.9 % Lymph % (Auto) 16.3 % [place] % (Auto) 8.4 % Eos % (Auto) 0.6 % Baso % (Auto) 0.2 % Neut # (Auto) 7.85 H (1.4-6.5) K/uL Lymph # (Auto) 1.73 (1.2-3.4) K/uL [place] # (Auto) 0.89 H (0.11-0.59) K/uL Eos # (Auto) 0.06 (0-0.5) K/uL Baso # (Auto) 0.02 (0-0.2) K/uL Immature Gran # (Auto) 0.06 H (0.00-0.02) K/uL Polychromasia 1+ Hypochromasia Present Basophilic Stippling Occasional Sodium 129 L (136-145) mmol/L Potassium 3.7 (3.5-5.1) mmol/L Chloride 94 L (98-107) mmol/L Carbon Dioxide 29 (21-32) mmol/L Anion Gap 7.0 (3-11) BUN 41 H (7-18) mg/dl Creatinine 0.97 (0.6-1.2) mg/dl Est Cr Clr Drug Dosing 60.9 ml/min Est GFR ( Amer) 63.9 ml/min Est GFR (Non-Af Amer) 55.2 ml/min BUN/Creatinine Ratio 42.1 H (10-20) Glucose 139 H (70-99) mg/dl Calcium 8.4 L (8.5-10.1) mg/dl Magnesium 2.2 (1.8-2.4) mg/dl Total Bilirubin 0.4 (0.2-1) mg/dl AST 16 (15-37) U/L ALT 17 (12-78) U/L Alkaline Phosphatase 57 (45-117) U/L Total Creatine Kinase 72 (26-192) U/L Troponin I < 0.015 (0-0.045) ng/ml Total Protein 6.0 L (6.4-8.2) gm/dl Albumin 2.7 L (3.4-5.0) gm/dl Globulin 3.3 (2.5-4.0) gm/dl Albumin/Globulin Ratio 0.8 L (0.9-2) TSH 3.420 (0.300-4.500) uIu/ml Imaging Data Attestation: I personally reviewed and interpreted this imaging study as follows: My Impression: Chest x-ray: Per my interpretation shows cardiomegaly. ECG Data Attestation: I personally reviewed and interpreted this ECG as follows: Indication: + weakness Rate (beats per minute): 70 Rhythm: + other (Paced ventricular rhythm) MDM Narrative Patient presents with generalized weakness as detailed above. Vital signs here are normal. She is in no distress and exam was unremarkable except for looking pale. The patient hemoglobin is 4.8. Her stool is black and guaiac positive. BUN is 41. EKG shows paced ventricular rhythm at a rate of 70. Chest x-ray did not show acute process. The patient symptoms are likely related to upper GI bleeding possibly related to the episode of vomiting causing some injury to the esophagus or stomach with ongoing bleeding because of the Eliquis. The patient was seen by the hospitalist. 1 unit of blood has been ordered to be administer ed in the ED. patient was also treated with IV Protonix and some IV fluids. Impression & Plan Acute upper gastrointestinal bleeding, Anemia, Weakness Discharge Plan Visit Data Chief Complaint: Illness ED Provider: Erick Botello Discharge Problem: Acute upper gastrointestinal bleeding, Anemia, Weakness Patient Disposition: Being Evaluated by Hospitalist Forms Stand Alone Forms: My [facility], Virtual Emergency Department, Important Visit Information Prescriptions Prescriptions: No Action carvedilol 25 mg tablet 25 mg PO BID Qty: 180 RF: 3 Xarelto 20 mg tablet 20 mg PO PM Qty: 90 RF: 3 triamterene-hydrochlorothiazid 37.5-25 mg capsule 1 cap PO DAILY Qty: 90 RF: 3 furosemide 20 mg tablet 20 mg PO DAILY PRN (Reason: edema) Qty: 30 RF: 5 Referrals Referrals: PCP,NO [Primary Care Provider] -
[2020-10-03 22:46] LABS: Hematocrit (blood only) 15.2 % (37-47); Hemoglobin 4.8 g/dL (12.0-16.0); Mean Corpuscular Hemoglobin 28.7 pg (25-34); Mean Corpuscular Hgb Conc 31.6 g/dL (32-36); Mean Platelet Volume 8.6 fL (7.4-10.4); Platelet Count 339 K/uL (130-400); RDW Coefficient of Variation 14.4 % (11.5-14.5); RDW Standard Deviation 47.8 fL (36.4-46.3); Red Blood Count 1.67 M/uL (4.2-5.4); White Blood Count 10.61 K/uL (4.8-10.8)
[2020-10-03 22:54] LABS: Alanine Aminotransferase 17 U/L (12-78); Albumin Level 2.7 gm/dl (3.4-5.0); Aspartate Aminotransferase 16 U/L (15-37); BUN Creatinine Ratio 42.1 (10-20); Blood Urea Nitrogen 41 mg/dl (7-18); Calcium 8.4 mg/dl (8.5-10.1); Carbon Dioxide 29 mmol/L (21-32); Chloride 94 mmol/L (98-107); Creatinine Clr Calc Pharmacy 60.9 ml/min; Est GFR (African American) 63.9 ml/min; Est GFR (Non-African American) 55.2 ml/min; Glucose 139 mg/dl (70-99); Magnesium 2.2 mg/dl (1.8-2.4); Potassium 3.7 mmol/L (3.5-5.1); Sodium 129 mmol/L (136-145)
[2020-10-03] MEDS ORDERED: SODIUM CHLORIDE 0.9% 250 ML IV PRN (22:55)
[2020-10-03 23:02] LABS: Basophilic Stippling Occasional; Basophils # (auto) 0.02 K/uL (0-0.2); Basophils % (auto) 0.2 %; Eosinophils # (auto) 0.06 K/uL (0-0.5); Eosinophils % (auto) 0.6 %; Hypochromasia Present; Immature Granulocytes # (auto) 0.06 K/uL (0.00-0.02); Immature Granulocytes % (auto) 0.6 %; Lymphocytes # (auto) 1.73 K/uL (1.2-3.4); Lymphocytes % (auto) 16.3 %; Monocytes # (auto) 0.89 K/uL (0.11-0.59); Monocytes % (auto) 8.4 %; Neutrophils # (auto) 7.85 K/uL (1.4-6.5); Neutrophils % (auto) 73.9 %; Polychromasia 1+
[2020-10-03 23:05] LABS: Albumin Globulin Ratio 0.8 (0.9-2); Alkaline Phosphatase 57 U/L (45-117); Bilirubin,Total 0.4 mg/dl (0.2-1); Creatine Kinase 72 U/L (26-192); Globulin 3.3 gm/dl (2.5-4.0); Troponin I < 0.015 ng/ml (0-0.045)
[2020-10-03] MEDS ORDERED: PANTOPRAZOLE BOLUS/DRIP 1 EA IV STA (23:09)
[2020-10-03] MEDS ORDERED: PANTOprazole 80 MG in DEXTROSE 5% 100 ML IV ONE (23:09)
[2020-10-03 23:35] LABS: Appearance Urine Clear (Clear); Bacteria Urine Automated Negative (Negative); Bilirubin Urine Negative (Negative); Blood Urine 2+ (Negative); Color Urine Yellow; Glucose Urine UA Negative (Negative); Ketones Urine Negative (Negative); Leukocyte Esterase Urine Negative (Negative); Nitrite Urine Negative (Negative); Protein Urine Negative (Negative); RBC Urine Automated 0-4 /hpf (0-4); Specific Gravity Urine 1.013 (1.000-1.030); Urobilinogen Urine Negative (Negative); pH Urine 6.5 (4.5-7.5)
--- NOTE | 2020-10-03 23:50 | History & Physical Report ---
Date of Service October 03, 2020 Assessment & Plan (1) Acute blood loss anemia: Mrs. Curry is an 80 yo woman with a PMHx of permanent atrial fibrillation on chronic anticoagulation with Xarelto who presented to the ED with progressive weakness. - secondary to acute blood loss anemia. - Hgb 4.8 on admission. - History of forceful vomiting, dark stool and elevated BUN concerning for upper GI source - 2 units of pRBCs ordered to transfuse on admission - check serial H+Hs q4h - hold Xarelto - continue protonix drip - GI consult placed - NPO in the event of possible EGD in am (2) Atrial fibrillation: - permanent - s/p AV calos ablation in 2013 - AICD in place - follows locally with Dr. Frank at [place] [facility] - hold Xarleto in setting of acute UGI bleed (3) CHF (congestive heart failure): - last known EF was 40-45% - HFrEF - continue home carvedilol - hold home HCTZ-triamterene combo and lasix due to relatively soft BP . Resume when BP normalizes (4) Metabolic alkalosis: - bicarb elevated to 29 - chloride low - possible due to vomiting history - trend BMP DVT ppx: chemo contraindicated in setting of acute GI bleed. SCDs Dispo: Med/Surg w. tele Diet: NPO in event of possible EGD Code: DNR/DNI History of Present Illness Primary Care Provider: NO PCP Mrs. Curry is an 80 yo F with a PMHx of Atrial Fibrillation (s/p AV ablation, on chronic anticoagulation with Xarelto) who presented to [facility] for evaluation of progressive weakness over the past 10 days. After eating a casserole for dinner (10 days ago) patient had several episodes of vomiting, one of which was quite violent. She states the vomitus was not bloody. She did have some epigastric pain after the vomiting, for which she took a dose of Motrin (but denies regular NSAID use). She took 1 dose of pepto-bismal, and later noticed her stool was black and had a sticky, glue-like consistency. Despite using pepto-bismal only once, stool has remained black in color for past 10 days. No recurrent episodes of vomiting on subsequent days. She is on Xarelto for permanent Afib. She did have an AV calos ablation at [facility] in 2013; she does have an AICD in place. She does not take a daily baby aspirin. Social Hx: She lives with her son. Her prior PCP retired and she has not yet established with a new one. In the ED, she was afebrile with normal HR. Her WBC was normal, but her Hgb returned low at 4.8. MCV at 91. Stool was guiac positive. Her Cr was normal, but BUN was increased to 41. Na was low at 129, Bicarb increased to 29. Albumin low at 2.7. LFTs not elevated. TSH 3.4. UA pending. CXR showing no acute process. EKG showing a ventricularly paced rhythm. She was consent for blood products and 2 units of pRBCs were ordered. She was given an IV Protonix bolus followed by a drip. Allergies Allergy/AdvReac Type Severity Reaction Status Date / Time cephalexin Allergy Mild VAGINAL Verified 10/03/20 21:56 ITCHING erythromycin base AdvReac Unknown ,HEARING Verified 10/03/20 21:56 LOSS Penicillins AdvReac Unknown Numbness Verified 10/03/20 21:56 Home Medications Medication Instructions Recorded Confirmed Type carvedilol 25 mg tablet 25 mg PO BID #180 tab 01/06/20 10/03/20 Rx rivaroxaban 20 mg tablet 20 mg PO PM #90 tab 01/06/20 10/03/20 Rx triamterene 37.5 1 cap PO DAILY #90 cap 01/06/20 10/03/20 Rx mg-hydrochlorothiazide 25 mg capsule furosemide 20 mg tablet 20 mg PO DAILY PRN #30 tab 07/31/20 10/03/20 Rx Past Med/Surg History Medical History (Updated 10/04/20 @ 12:57 by Richar Esqueda MD) Acute blood loss anemia Acute upper gastrointestinal bleeding Anticoagulant long-term use Atrial fibrillation Permanent. S/P BiV ICD 2010, rate controlled by AV calos ablation 2013. Breast carcinoma Cardiomyopathy CHF (congestive heart failure) Chronic systolic, EF 40-45% Left bundle branch block (LBBB) Lyme disease Non-ischemic cardiomyopathy s/p Bi-V ICD implantation 2010. EF 40-45% Surgical History AICD (automatic cardioverter/defibrillator) present H/O hysterectomy for benign disease History of cardiac cath [facility] History of cardiac radiofrequency ablation After failed cardioversion, AV calos ablation 02/24/2014 History of cardioversion 01/2014 for A fib. Was in NSR for less than 24hrs. History of colonoscopy History of hand surgery right hand History of partial colectomy History of partial mastectomy of both breasts Family History Mother Breast cancer Other Family history non-contributory Social History Smoking Status: Former smoker Tobacco Type: Cigarettes Second Hand Exposure: No; Hx Alcohol Use: Yes Alcohol type: wine and hard liquor Hx Substance Use: No Preferred Language: American Communication Ability: Effective Visual Impairment: No Limitations Rat Farmer Required: No Beliefs That Will Affect Care: None Current Living Situation: Family Current Living Situation Comment: With son Other Information That Helps Us Care for You: No Feels Safe at Home: Yes Safety Concerns: Feels Safe At This Time Assistive Devices: Glasses Review of Systems Constitutional: + weakness Gastrointestinal: no abdominal pain, no nausea and no vomiting Physical Exam Constitutional: WD/WN, vitals as above cooperative; no acute distress Eyes: + anicteric sclerae ENMT: external ear and nose normal, oropharynx normal Neck: normal visual inspection and trachea midline Respiratory: normal respiratory effort, lungs clear to auscultation no cough Cardiovascular: Rate/Rhythm: regular rate and regular rhythm Heart Sounds: normal S1 and normal S2 Vessels: normal carotid upstroke; no carotid bruit Extremities: + pedal edema (+2 b/l) Gastrointestinal (Abdomen): normal bowel sounds, soft, nontender, no hepatosplenomegaly Skin: no rashes, warm and dry + pallor Neurologic: moves all extremities Psychiatric: A+Ox3, euthymic affect Results & Data Results & Data ([facility]) Vital Signs (Past 12 Hours) Vital Signs Temp Pulse Resp BP Pulse Ox 10/03/20 22:41 70 23 108/53 L 97 10/03/20 22:23 74 13 121/44 L 100 10/03/20 22:20 73 13 100 10/03/20 21:46 36.7 C 74 18 110/59 L 99 10/03/20 21:32 71 16 110/59 L 98 Supervising Physician Co-Signing Physician Notes Attending addendum: I have physically seen this patient, have supervised the medical residents activities, and agree with the H&P unless as otherwise noted. Assessment and Plan: Acute blood loss anemia/GI bleed- Hemoglobin 4.8 upon admission H&H every 4 hours NPO 2 units PRBCs ordered by ED Hold Xarelto. If bleeding persists will reverse Continue Protonix bolus/drip per protocol Consult gastroenterology IV fluids Atrial fibrillation/status post AV calos ablation in 2013/AICD/HFrEF- Hold Xarelto for now Hold triamterene/HCTZ and Lasix Remaining orders and notations as noted Resident Activity Tracking Resident Involvement: Resident Care Provided Care Provided: Adult Hospital Medicine
[2020-10-04] MEDS: PANTOprazole 40 MG in DEXTROSE 5% 100 ML IV SCH ×4 (00:02→17:47)
[2020-10-04] MEDS ORDERED: POLYETHYLENE (MIRALAX) 17 GM PACK PO PRN (01:51)
[2020-10-04] MEDS ORDERED: ONDANSETRON INJ 2 MG/ML 2 ML VIAL IV PRN (01:51)
[2020-10-04] MEDS ORDERED: ACETAMINOPHEN 325 MG TAB PO PRN (01:51)
[2020-10-04] MEDS ORDERED: SODIUM CHLORIDE 0.9% 250 ML IV PRN ×2 (03:01→10:08)
--- NOTE | 2020-10-04 06:56 | XRay Report ---
XR chest 1V portable CLINICAL HISTORY: weakness COMPARISON STUDY: Chest radiograph May 14, 2018. FINDINGS: Left subclavian biventricular pacer/AICD is in place. Cardiomegaly is unchanged. There is n o evidence for pulmonary edema. No pneumothorax or pleural effusion is noted. There is no consolidati on to suggest pneumonia. Linear right basilar opacity favors atelectasis. The appearance of the chest is unchanged. IMPRESSION: No acute cardiopulmonary findings. No change in appearance of the chest. Cardiomegaly. ACT 112: Negative or not required by law. Electronically signed by: Ty Cristobal M.D. 10/04/2020 6:55 AM
[2020-10-04] MEDS ORDERED: carvediloL 25 MG TAB PO SCH (09:00)
[2020-10-04 10:01] LABS: BUN Creatinine Ratio 38.3 (10-20); Calcium 8.5 mg/dl (8.5-10.1); Creatinine Clr Calc Pharmacy 59.6 ml/min; Est GFR (African American) 62.4 ml/min; Est GFR (Non-African American) 53.8 ml/min; Potassium 3.7 mmol/L (3.5-5.1)
[2020-10-04 10:04] LABS: Hematocrit (blood only) 19.6 % (37-47); Hemoglobin 6.6 g/dL (12.0-16.0)
--- NOTE | 2020-10-04 10:28 | Gastrointestinal Consultation ---
Date of Consultation October 04, 2020 Assessment & Plan (1) Acute blood loss anemia: -Keep NPO for EGD today -Continue IV Protonix gtt at present -Continue to monitor H/H -Transfusion care per primary team -Further recommendations pending results of EGD Thank you for allowing us to participate in the care of this patient. If you should have any further questions or concerns, do not hesitate to contact us at extension [phone] or [phone]. Supervising Physician Co-Signing Physician Notes Agree with CHELSIE Harvey as above Abd: Soft, NT, ND, +BS Continue current therapy and supportive care Proceed with EGD now Further recommendations to follow History of Present Illness Reason for Consultation: Anemia, upper GI bleeding Attending Physician: Radha Gillespie MD History of Present Illness Patient is an 80 yo female with Afib on Xarelto who presented to the ER for weakness. She notes that over the past 10-12 days she was feeling weaker. She notes several episodes of vomiting, non-bloody. She reports some epigastric pain that has been lingering for which she used Motrin and Pepto Bismol. She experienced dark, tarry stools for 10 days. Her H/H on admission was 4.8/15.2. It appears that her hemoglobin from this AM increased to 6.6. She denies other NSAID use with the exception of the Motrin she took for her epigastric pain. She is currently on a Protonix drip. She denies pertinent family history. No personal history of upper GI abnormalities. She cannot remember her last colonoscopy. She initially indicated that she did not want to have an EGD, but after further conversation agrees to move forward. Allergies Allergy/AdvReac Type Severity Reaction Status Date / Time cephalexin Allergy Mild VAGINAL Verified 10/03/20 21:56 ITCHING erythromycin base AdvReac Unknown ,HEARING Verified 10/03/20 21:56 LOSS Penicillins AdvReac Unknown Numbness Verified 10/03/20 21:56 Home Medications Medication Instructions Recorded Confirmed Type carvedilol 25 mg tablet 25 mg PO BID #180 tab 01/06/20 10/03/20 Rx rivaroxaban 20 mg tablet 20 mg PO PM #90 tab 01/06/20 10/03/20 Rx triamterene 37.5 1 cap PO DAILY #90 cap 01/06/20 10/03/20 Rx mg-hydrochlorothiazide 25 mg capsule furosemide 20 mg tablet 20 mg PO DAILY PRN #30 tab 07/31/20 10/03/20 Rx Patient History Medical History (Updated 10/04/20 @ 12:57 by Richar Esqueda MD) Acute blood loss anemia Acute upper gastrointestinal bleeding Anticoagulant long-term use Atrial fibrillation Permanent. S/P BiV ICD 2010, rate controlled by AV calos ablation 2013. Breast carcinoma Cardiomyopathy CHF (congestive heart failure) Chronic systolic, EF 40-45% Left bundle branch block (LBBB) Lyme disease Non-ischemic cardiomyopathy s/p Bi-V ICD implantation 2010. EF 40-45% Surgical History AICD (automatic cardioverter/defibrillator) present H/O hysterectomy for benign disease History of cardiac cath [facility] History of cardiac radiofrequency ablation After failed cardioversion, AV calos ablation 02/24/2014 History of cardioversion 01/2014 for A fib. Was in NSR for less than 24hrs. History of colonoscopy History of hand surgery right hand History of partial colectomy History of partial mastectomy of both breasts Family History Mother Breast cancer Other Family history non-contributory Social History Smoking Status: Former smoker Tobacco Type: Cigarettes Second Hand Exposure: No; Hx Alcohol Use: Yes Alcohol type: wine and hard liquor Hx Substance Use: No Preferred Language: [place] Communication Ability: Effective Visual Impairment: No Limitations Skidder Loader Required: No Beliefs That Will Affect Care: None Current Living Situation: Family Current Living Situation Comment: With son Other Information That Helps Us Care for You: No Feels Safe at Home: Yes Safety Concerns: Feels Safe At This Time Assistive Devices: Glasses Review of Systems Constitutional: + weakness; no fever and no chills Respiratory: no cough and no dyspnea Cardiovascular: no chest pain Gastrointestinal: + abdominal pain and + melena; no heartburn and no vomiting (none at present) Endocrine: + fatigue Physical Exam Constitutional: well developed Respiratory: normal respiratory effort Gastrointestinal (Abdomen): Inspection/Auscultation: abdomen normal to inspection Percussion/Palpation: abdomen nontender Musculoskeletal: Head/Neck/Chest: normocephalic Psychiatric: A+Ox3, euthymic affect Results & Data ([facility]) Vital Signs (Past 12 Hours) Vital Signs Temp Pulse Pulse Resp BP BP Pulse Ox 10/04/20 07:44 36.8 C 72 18 110/71 93 10/04/20 06:57 36.8 C 75 20 110/71 97 10/04/20 06:15 36.6 C 73 18 116/75 96 10/04/20 05:15 36.6 C 72 20 102/55 L 97 10/04/20 04:45 36.4 C L 70 18 105/71 96 10/04/20 04:30 36.9 C 72 18 97/60 L 96 10/04/20 04:15 36.8 C 71 18 112/70 97 10/04/20 03:39 36.7 C 70 18 94/51 L 98 10/04/20 03:15 36.5 C 72 20 100/51 L 95 10/04/20 02:45 36.6 C 72 18 95/63 L 95 10/04/20 02:30 36.7 C 74 24 93/53 L 99 10/04/20 02:15 36.7 C 70 20 94/51 L 98 10/04/20 01:26 36.6 C 74 18 102/53 L 99 10/04/20 01:01 74 13 102/53 L 97 10/04/20 01:00 73 16 93 10/04/20 00:57 75 15 109/37 L 93 10/04/20 00:30 72 18 108/62 100 10/04/20 00:00 76 27 H 108/58 L 99 10/03/20 23:51 71 25 H 103/60 100 10/03/20 23:30 73 22 99/48 L 10/03/20 22:41 70 23 108/53 L 97 PG Care Time/CCT Total # of Minutes Spent Total Time Spent with Patient: Total time spent is greater than 50% in coordination of care (as documented) at patient's floor/unit and/or counseling patient: Coding Level of Care Code 39738 Initial Inpt Care Lvl 3 Diagnoses Acute blood loss anemia D62
[2020-10-04] MEDS ORDERED: cefTRIAXone SODIUM 1,000 MG in DEXTROSE 5% 50 ML IV SCH (10:30)
--- NOTE | 2020-10-04 10:47 | Medical Student Progress Note ---
Date of Service October 04, 2020 Assessment & Plan (1) Acute blood loss anemia: Mrs. Curry is an 80 yo woman with a PMHx of permanent atrial fibrillation s/p AICD/pacemaker on chronic anticoagulation with Xarelto (held this admission) and CHF who presented with concern for GI bleed. Blood loss anemia - Hgb 4.8 on admission, 6.6 after 2 units pRBCs. 7.5 on subsequent - most likely secondary to acute blood loss anemia, concerning for upper GI bleed - continue protonix drip - GI consult placed. EGD today did not identify source of bleed. 15mm nonbleeding diverticulum in duodenum. - colonoscopy planned for 10/05 - CT abd/pelv pending - started ceftriaxone empirically for presumed UGIB. abx since discontinued - hold Xarelto Alcohol use - consumer ~20 drink/ week - EGD did not reveal varices - Will counselor/art therapist patient Hyponatremia - 129 this admission, consistent w/ values in 2019. asymptomatic - daily BMP Atrial fibrillation, stable - s/p AV calos ablation in 2013 - paced rhythm per telemetry - follows locally with Dr. Frank at [place] [facility] - hold Xarleto as per above HFrEF CHF (congestive heart failure): - last known EF was 40-45 (07/26) - Hold carvedilol, HCTZ-triamterene combo and lasix DVT ppx: SCDs, AC held Dispo: Med/Surg w. tele Diet: NPO after midnight. No IVF. Code: DNR/DNI (2) Atrial fibrillation: (3) CHF (congestive heart failure): Admission and Anticipated Discharge Date Admission Date: October 03, 2020 Subjective Seated in chair at bedside. Endorses weakness, but denies shortness of breath. Her last BM was yesterday and was dark and sticky. Her last dose of pepto-bismal was over a week ago. Admits to previously drinking 2 glasses of wine a night on weekdays and a 5 on weekends. However she has not been drinking for the past couple of months. Denies chest pain, palpitations, or shortness of breath. Review of Systems Review of Systems: Endorses weakness and melena. Denies headache, chest pain, palpitations, shortness of breath, abdominal pain, and dysuria. Physical Exam Constitutional: GENERAL: wdwg, nad. alert and oriented x3 HEENT: conjunctiva somewhat pale, some mucosal pallor, oropharynx moist, no erythema, no intraoral masses, external nose and pinna are normal CHEST: cta bilaterally with no wheezes, rhonchi or rales, good air movement with normal respiratory effort CARDIOVASCULAR: heart regular rate and rhythm, no murmurs, gallops or rubs, 1+ non-pitting lower extremity edema, normal cap refill ABD: no hepatosplenomegaly or masses, nontender to palpation, nondistended, normal active bowel sounds SKIN: no rashes or suspicious lesions noted Results & Data ([facility]) Vital Signs (Past 12 Hours) Vital Signs Temp Pulse Pulse Resp BP BP Pulse Ox 10/04/20 07:44 36.8 C 72 18 110/71 93 10/04/20 06:57 36.8 C 75 20 110/71 97 10/04/20 06:15 36.6 C 73 18 116/75 96 10/04/20 05:15 36.6 C 72 20 102/55 L 97 10/04/20 04:45 36.4 C L 70 18 105/71 96 10/04/20 04:30 36.9 C 72 18 97/60 L 96 10/04/20 04:15 36.8 C 71 18 112/70 97 10/04/20 03:39 36.7 C 70 18 94/51 L 98 10/04/20 03:15 36.5 C 72 20 100/51 L 95 10/04/20 02:45 36.6 C 72 18 95/63 L 95 10/04/20 02:30 36.7 C 74 24 93/53 L 99 10/04/20 02:15 36.7 C 70 20 94/51 L 98 10/04/20 01:26 36.6 C 74 18 102/53 L 99 10/04/20 01:01 74 13 102/53 L 97 10/04/20 01:00 73 16 93 10/04/20 00:57 75 15 109/37 L 93 10/04/20 00:30 72 18 108/62 100 10/04/20 00:00 76 27 H 108/58 L 99 10/03/20 23:51 71 25 H 103/60 100 10/03/20 23:30 73 22 99/48 L Resident Activity Tracking Resident Involvement: Resident Care Provided Care Provided: Adult Hospital Medicine Addendum (Blank) Addendum October 04, 2020 16:27 I interviewed and examined the patient alongside Elly Mcdaniels and verified/reviewed labs and imaging studies and agree with the findings and plan above. - Mitch aRe (resident) Attending Physicain Medical Student Supervision Note: I independently interviewed and examined the patient and verified the hawley history and physical, reviewed labs and image studies, discussed the case with the medical student Elly Cummings and the Resident physician Dr. Rae and agree with the findings and care plan. Acute blood loss anemia sec to GI bleed - transfused 4 units. s/p EGD with no source of bleeding. no active bleeding currently. for colonoscopy in am.
--- NOTE | 2020-10-04 12:57 | Anesthesiology Consultation ---
Date of Service October 04, 2020 Assessment & Plan Chart Review Chart Review: Acceptable Risk for Surgery, Patient NOT seen in Pre Admission Testing and entry level programmer initiated Consults Requested none ASA ASA3 Proposed Anesthesia Anesthesia Type: MAC Risk / Benefits Reviewed With: PT / POA / Parent / Guardian, Accepts Plan and Informed Consent Obtained History Surgery Operation Date: 10/04/20 16:45 Proposed Procedures p Esophagogastroduodenoscopy Dr Cox - Victoriano Cox, DO Height/Weight Height: 5 ft 10 in Weight: 105.5 kg Allergies Allergy/AdvReac Type Severity Reaction Status Date / Time cephalexin Allergy Mild VAGINAL Verified 10/03/20 21:56 ITCHING erythromycin base AdvReac Unknown ,HEARING Verified 10/03/20 21:56 LOSS Penicillins AdvReac Unknown Numbness Verified 10/03/20 21:56 Medications Home Medications Medication Instructions Recorded Confirmed Last Taken carvedilol 25 mg tablet 25 mg PO BID #180 tab 01/06/20 10/03/20 Unknown rivaroxaban 20 mg tablet 20 mg PO PM #90 tab 01/06/20 10/03/20 Unknown triamterene 37.5 1 cap PO DAILY #90 cap 01/06/20 10/03/20 Unknown mg-hydrochlorothiazide 25 mg capsule furosemide 20 mg tablet 20 mg PO DAILY PRN #30 tab 07/31/20 10/03/20 Unknown Active Medications Generic Name Dose Route Start Last Admin Trade Name Freq PRN Reason Stop Dose Admin Pantoprazole Sodium 40 mg/ 100 mls @ 20 mls/hr 10/03/20 23:24 10/04/20 10:57 Dextrose IV 11/02/20 23:23 8 mg/hr Q5H PENNY 20 mls/hr Administration 8 MG/HR Ceftriaxone Sodium 1,000 mg/ 50 mls @ 100 mls/hr 10/04/20 10:30 10/04/20 11:52 Dextrose IV 10/11/20 10:29 Infused Q24H PENNY Infusion Protocol Past Medical History Medical History (Updated 10/04/20 @ 12:57 by Richar Esqueda MD) Acute blood loss anemia Acute upper gastrointestinal bleeding Anticoagulant long-term use Atrial fibrillation Permanent. S/P BiV ICD 2010, rate controlled by AV calos ablation 2013. Breast carcinoma Cardiomyopathy CHF (congestive heart failure) Chronic systolic, EF 40-45% Left bundle branch block (LBBB) Lyme disease Non-ischemic cardiomyopathy s/p Bi-V ICD implantation 2010. EF 40-45% Past Family History Family History Mother Breast cancer Other Family history non-contributory Past Surgical History Surgical History AICD (automatic cardioverter/defibrillator) present H/O hysterectomy for benign disease History of cardiac cath [facility] History of cardiac radiofrequency ablation After failed cardioversion, AV calos ablation 02/24/2014 History of cardioversion 01/2014 for A fib. Was in NSR for less than 24hrs. History of colonoscopy History of hand surgery right hand History of partial colectomy History of partial mastectomy of both breasts Social History Smoking Status: Former smoker tobacco type: cigarettes Hx Alcohol Use: Yes Alcohol type: wine and hard liquor alcohol intake frequency: a few times a month Hx Substance Use: No substance use type: does not use Physical Exam Vital Signs Last Vital Signs Temp 36.8 C 10/04/20 12:12 Pulse 71 10/04/20 12:12 Resp 16 10/04/20 12:12 BP 103/66 10/04/20 12:12 Pulse Ox 98 10/04/20 12:12 Testing Laboratory Results 10/04/20 09:23 10/04/20 09:23 Urine Color Yellow 10/03/20 22:38 Urine Appearance Clear (Clear) 10/03/20 22:38 Urine pH 6.5 (4.5-7.5) 10/03/20 22:38 Ur Specific [place] 1.013 (1.000-1.030) 10/03/20 22:38 Urine Protein Negative (Negative) 10/03/20 22:38 Urine Glucose (UA) Negative (Negative) 10/03/20 22:38 Urine Ketones Negative (Negative) 10/03/20 22:38 Urine Nitrite Negative (Negative) 10/03/20 22:38 Ur Leukocyte Esterase Negative (Negative) 10/03/20 22:38 Urine WBC (Auto) 1-5 /hpf (0-5) 10/03/20 22:38 Urine RBC (Auto) 0-4 /hpf (0-4) 10/03/20 22:38 U Hyaline Cast (Auto) 1-5 /lpf (0-5) 10/03/20 22:38 U Epithel Cells (Auto) 5-10 /lpf (0-5) H 10/03/20 22:38 Urine Bacteria (Auto) Negative (Negative) 10/03/20 22:38 Blood Type O Negative 10/03/20 23:12 Antibody Screen NEGATIVE 10/03/20 23:12 Electrocardiogram Date: 10/03/2003-Oct-2020 22:34:13 [facility]-EDSTAT ROUTINE RETRIEVAL Ventricular-paced rhythm Biventricular pacemaker detected Abnormal ECG When compared with ECG of 14-MAY-2018 08:29, No significant change was found Chest X-Ray Date: 10/03/20 XR chest 1V portable CLINICAL HISTORY: weakness COMPARISON STUDY: Chest radiograph May 14, 2018. FINDINGS: Left subclavian biventricular pacer/AICD is in place. Cardiomegaly is unchanged. There is no evidence for pulmonary edema. No pneumothorax or pleural effusion is noted. There is no consolidation to suggest pneumonia. Linear right basilar opacity favors atelectasis. The appearance of the chest is unchanged. IMPRESSION: No acute cardiopulmonary findings. No change in appearance of the chest. Cardiomegaly. Echocardiogram Date: 08/03/20 EF: 50-55% LV Function: normal RWMA: + none Other Findings: + atrial enlargement Valvular Disease: + AI and + MR
[2020-10-04] MEDS ORDERED: GLYCOPYRROLATE 0.2 MG/ML VIAL ONE (15:21)
[2020-10-04] MEDS ORDERED: PROPOFOL IV EMULSION 10 MG/ML 20 ML VIAL IV ONE (15:21)
[2020-10-04] MEDS ORDERED: LIDOCAINE 2% 2 ML VIAL/AMP(20MG/ML) INFIL ONE (15:21)
[2020-10-04] MEDS ORDERED: ONDANSETRON INJ 2 MG/ML 2 ML VIAL ONE (15:21)
--- NOTE | 2020-10-04 15:57 | Anesthesiology Progress Note ---
Date of Service October 04, 2020 Anesthesia Post Procedure Vital Signs Vital Signs: Temp Pulse Pulse Resp BP BP Pulse Ox 10/04/20 15:51 73 16 101/64 97 10/04/20 15:15 36.6 C 73 18 134/60 99 10/04/20 15:00 36.6 C 78 18 124/64 99 10/04/20 14:45 36.9 C 79 16 125/75 97 10/04/20 14:20 36.7 C 70 16 116/64 10/04/20 14:00 36.5 C 70 16 118/72 99 10/04/20 13:00 36.5 C 68 16 106/62 94 10/04/20 12:12 36.8 C 71 16 103/66 98 10/04/20 12:00 36.6 C 70 16 112/64 100 10/04/20 11:45 36.5 C 71 16 111/70 98 10/04/20 11:24 36.7 C 75 20 106/67 95 10/04/20 11:05 36.6 C 70 18 118/73 10/04/20 07:44 36.8 C 72 18 110/71 93 10/04/20 06:57 36.8 C 75 20 110/71 97 10/04/20 06:15 36.6 C 73 18 116/75 96 10/04/20 05:15 36.6 C 72 20 102/55 L 97 10/04/20 04:45 36.4 C L 70 18 105/71 96 10/04/20 04:30 36.9 C 72 18 97/60 L 96 10/04/20 04:15 36.8 C 71 18 112/70 97 10/04/20 03:39 36.7 C 70 18 94/51 L 98 10/04/20 03:15 36.5 C 72 20 100/51 L 95 10/04/20 02:45 36.6 C 72 18 95/63 L 95 10/04/20 02:30 36.7 C 74 24 93/53 L 99 10/04/20 02:15 36.7 C 70 20 94/51 L 98 10/04/20 01:26 36.6 C 74 18 102/53 L 99 10/04/20 01:01 74 13 102/53 L 97 10/04/20 01:00 73 16 93 10/04/20 00:57 75 15 109/37 L 93 10/04/20 00:30 72 18 108/62 100 10/04/20 00:00 76 27 H 108/58 L 99 10/03/20 23:51 71 25 H 103/60 100 10/03/20 23:30 73 22 99/48 L 10/03/20 22:41 70 23 108/53 L 97 10/03/20 22:23 74 13 121/44 L 100 10/03/20 22:20 73 13 100 10/03/20 21:46 36.7 C 74 18 110/59 L 99 10/03/20 21:32 71 16 110/59 L 98 Transfer of Care Handoff Completed per policy Notes Mental Status: alert / awake / arousable and participated in evaluation Patient Amnestic to Procedure: Yes Nausea / Vomiting: adequately controlled Pain: adequately controlled Airway Patency, RR, SpO2: stable & adequate BP & HR: stable & adequate Hydration State: stable & adequate Anesthetic Complications: no major complications apparent and Pt Satisfied with anesthetic care
--- NOTE | 2020-10-04 16:02 | GI REPORT ---
Patient Name: Patience Curry Procedure Date: 10/04/2020 3:33 PM Date of : 1940 Admit Type: Inpatient Age: 80 Gender: Female Attending MD: Victoriano Cox DO Procedure: Upper GI endoscopy Providers: Victoriano Cox DO Referring MD: Radha Gillespie Indications: Acute post hemorrhagic anemia Medicines: Monitored Anesthesia Care Complications: No immediate complications. Estimated Blood Loss: Estimated blood loss: none. Procedure: Pre-Anesthesia Assessment: - Prior to the procedure, a History and Physical was performed, and patient medications and allergies were reviewed. The patient's tolerance of previous anesthesia was also reviewed. The risks and benefits of the procedure and the sedation options and risks were discussed with the patient. All questions were answered, and informed consent was obtained. Prior Anticoagulants: The patient has taken Xarelto (rivaroxaban), last dose was 1 day prior to procedure. ASA Grade Assessment: III - A patient with severe systemic disease. After reviewing the risks and benefits, the patient was deemed in satisfactory condition to undergo the procedure. After obtaining informed consent, the endoscope was passed under direct vision. Throughout the procedure, the patient's blood pressure, pulse, and oxygen saturations were monitored continuously. The Endoscope was introduced through the mouth, and advanced to the third part of duodenum. The upper GI endoscopy was accomplished without difficulty. The patient tolerated the procedure well. Findings: The esophagus was normal. The stomach was normal. A 15 mm non-bleeding diverticulum was found in the second portion of the duodenum. Impression: - Normal esophagus. - Normal stomach. - Non-bleeding duodenal diverticulum. - No specimens collected. Recommendation: - Return patient to [facility] for ongoing care. - Clear liquid diet. - Perform a CT scan (computed tomography) of abdomen with contrast and pelvis with contrast today. - Perform a colonoscopy tomorrow. Victoriano Cox DO 10/04/2020 4:02:00 PM This report has been signed electronically. Note Initiated On: 10/04/2020 3:33 PM Number of Addenda: 0 I attest to the content of the Intraoperative Record and orders documented therein, exceptions below {[id number]}
[2020-10-04] MEDS ORDERED: LAVAGE SOLUTION 4000ML PO SCH (18:00)
[2020-10-04] MEDS ORDERED: OPTIRAY 320 100ml IV ONE (19:08)
--- NOTE | 2020-10-04 20:59 | Billing Data ---
Date of Service October 04, 2020 Coding Level of Care Code 18449 Initial Inpt Care Lvl 3
--- NOTE | 2020-10-04 21:03 | CT Scan Report ---
CT SCAN OF THE ABDOMEN AND PELVIS WITH IV CONTRAST CLINICAL HISTORY: Generalized abdominal pain. Anemia. COMPARISON STUDY: Abdominal CT dated 09/17/2006. TECHNIQUE: Following the IV administration of 90 cc of Optiray 320, CT scan of the abdomen and pelvi s is performed from the lung bases to the proximal femora. Images are reviewed in the axial, sagittal , and coronal planes. IV contrast was administered without complication. Oral contrast was utilized. A dose lowering technique was utilized adhering to the principles of ALARA. CT DOSE: 959.70 mGycm FINDINGS: Lung bases: The heart is markedly enlarged noting a small pericardial effusion. Pacemaker leads are n oted. The lung bases are clear noting bibasilar scarring/atelectasis. Liver: The contrast-enhanced liver is normal in size and heterogeneous in attenuation. Nodularity of the hepatic surface contour suggests early change of cirrhosis. There is no intrahepatic biliary duct al dilatation. The hepatic veins and portal veins are patent. Gallbladder: There is a large gallstone with no CT evidence of acute cholecystitis. Spleen: Normal in size and attenuation. Pancreas: Unremarkable. Adrenal glands: Unremarkable. Kidneys: The contrast enhanced kidneys are atrophic and without hydronephrosis. The kidneys enhance s ymmetrically. Scattered renal cysts measure up to 3 cm. Additional subcentimeter cortical hypodensiti es also likely represent cysts but are too small for definitive characterization. Abdominal vasculature: The abdominal aorta is normal in course and caliber noting advanced atheroscle rotic calcification. Bowel: There is postoperative change from sigmoid colon resection with colocolonic anastomosis. No huyen wel obstruction is identified. Enteric contrast reaches the left colon. There are scattered colonic d iverticula without CT evidence of acute diverticulitis. The cecum is located in the pelvis. A duodena l diverticulum is incidentally noted. The appendix is not visualized. Peritoneum: There is no intraperitoneal free air or abdominal ascites. There is nonspecific infiltrat ion identified around the central mesentery. Lymphadenopathy: None. Pelvic viscera: The bladder is normal as visualized. The uterus is surgically absent. No adnexal lesi on is seen. Skeletal structures: The skeletal structures are osteopenic. There is mild lumbosacral spondylosis. A large hemangioma seen in the body of L2. No lytic or blastic lesions are seen. IMPRESSION: 1. There is nonspecific infiltration identified around the central mesentery. This is of indeterminan t etiology and significance. 2. There is postoperative change from sigmoid colon resection with colocolonic anastomosis. No bowel obstruction is seen. 3. Cholelithiasis. 4. The liver is heterogeneous with nodularity of the surface contour. This suggests early change of c irrhosis. 5. Marked cardiomegaly and cardiac pacemaker. 6. Additional findings as above. ACT 112: Negative or not required by law. Electronically signed by: Tigre Choi M.D. 10/04/2020 9:01 PM
[2020-10-04 21:54] LABS: Hemoglobin 7.8 g/dL (12.0-16.0)
[2020-10-05 07:49] LABS: Basophils # (auto) 0.02 K/uL (0-0.2); Basophils % (auto) 0.3 %; Eosinophils % (auto) 1.5 %; Hematocrit (blood only) 23.3 % (37-47); Hemoglobin 7.6 g/dL (12.0-16.0); Immature Granulocytes # (auto) 0.04 K/uL (0.00-0.02); Immature Granulocytes % (auto) 0.6 %; Lymphocytes # (auto) 1.19 K/uL (1.2-3.4); Lymphocytes % (auto) 17.7 %; Mean Corpuscular Hemoglobin 29.1 pg (25-34); Mean Corpuscular Hgb Conc 32.6 g/dL (32-36); Mean Corpuscular Volume 89.3 fL (80-100); Mean Platelet Volume 8.9 fL (7.4-10.4); Monocytes % (auto) 11.9 %; Neutrophils # (auto) 4.58 K/uL (1.4-6.5); Platelet Count 270 K/uL (130-400); RDW Coefficient of Variation 15.1 % (11.5-14.5); Red Blood Count 2.61 M/uL (4.2-5.4); White Blood Count 6.73 K/uL (4.8-10.8)
[2020-10-05 08:18] LABS: Hypochromasia Present; Microcytosis Present; Polychromasia 1+
[2020-10-05 08:22] LABS: BUN Creatinine Ratio 27.2 (10-20); Calcium 8.2 mg/dl (8.5-10.1); Creatinine Clr Calc Pharmacy 63.5 ml/min; Est GFR (African American) 68.2 ml/min; Est GFR (Non-African American) 58.8 ml/min; Potassium 3.5 mmol/L (3.5-5.1)
--- NOTE | 2020-10-05 10:40 | Communication Note ---
Date of Service: October 05, 2020 Patient is an 80 yo female who presented with melena & anemia. The patient underwent an EGD yesterday that was unremarkable. H/H today is 7.6/23.3. She has received 4 units PRBCs. She was advised to have a colonoscopy but has refused. She has not had a bowel movement since 10/03/20 and has no further melena. CT abd/pelvis did not indicate any obvious sources of GI bleeding. If anemia persists, consider a nuclear med tagged RBC bleeding scan. Continue IV PPI therapy at present and please re-consult our team if patient begins to bleed or changes her mind about proceeding with further endoscopic testing. Agree with CHELSIE Harvey as above No overt GI bleeding and patient refuses colonoscopy. Recommend Tagged RBC scan if overt GI bleeding occurs. CT Reviewed
--- NOTE | 2020-10-05 11:35 | Electrocardiogram Report ---
Test Reason : Blood Pressure : / mmHG Vent. Rate : 070 BPM Atrial Rate : 075 BPM P-R Int : 000 ms QRS Dur : 152 ms QT Int : 504 ms P-R-T Axes : 000 169 016 degrees QTc Int : 544 ms Ventricular-paced rhythm Biventricular pacemaker detected Abnormal ECG When compared with ECG of 14-MAY-2018 08:29, No significant change was found Confirmed by Diego Ramos ([id number]) on 10/05/2020 11:34:37 AM Referred By: REFERRED SELF Confirmed By:Diego Ramos
--- NOTE | 2020-10-05 13:52 | Med Student Discharge Summary ---
Date of Service October 05, 2020 Admission HPI Per Admitting Provider Mrs. Curry is an 80 yo F with a PMHx of Atrial Fibrillation (s/p AV ablation, on chronic anticoagulation with Xarelto) who presented to [facility] for evaluation of progressive weakness over the past 10 days. After eating a casserole for dinner (10 days ago) patient had several episodes of vomiting, one of which was quite violent. She states the vomitus was not bloody. She did have some epigastric pain after the vomiting, for which she took a dose of Motrin (but denies regular NSAID use). She took 1 dose of pepto-bismal, and later noticed her stool was black and had a sticky, glue-like consistency. Despite using pepto-bismal only once, stool has remained black in color for past 10 days. No recurrent episodes of vomiting on subsequent days. She is on Xarelto for permanent Afib. She did have an AV calos ablation at [facility] in 2013; she does have an AICD in place. She does not take a daily baby aspirin. Social Hx: She lives with her son. Her prior PCP retired and she has not yet established with a new one. In the ED, she was afebrile with normal HR. Her WBC was normal, but her Hgb returned low at 4.8. MCV at 91. Stool was guiac positive. Her Cr was normal, but BUN was increased to 41. Na was low at 129, Bicarb increased to 29. Albumin low at 2.7. LFTs not elevated. TSH 3.4. UA pending. CXR showing no acute process. EKG showing a ventricularly paced rhythm. She was consent for blood products and 2 units of pRBCs were ordered. She was given an IV Protonix bolus followed by a drip. Admission Exam (Per Admitting) Constitutional WD/WN, vitals as above well developed, + obese and cooperative; no acute distress Eyes + anicteric sclerae ENMT external ear and nose normal, oropharynx normal Mouth: + dentures; no chipped teeth and no loose teeth Mallampati Class: II Neck normal visual inspection and trachea midline; neck extension not limited Respiratory normal respiratory effort, lungs clear to auscultation normal respiratory effort; no respiratory distress and no cough Auscultation: lungs clear to auscultation bilaterally; no crackles, no rhonchi and no wheezes Cardiovascular Rate/Rhythm: regular rate and regular rhythm Heart Sounds: normal S1 and normal S2; no murmur Vessels: normal carotid upstroke; no carotid bruit Extremities: + pedal edema (+2 b/l) Chest (Breasts) Chest: + pacemaker (AICD) Gastrointestinal (Abdomen) normal bowel sounds, soft, nontender, no hepatosplenomegaly Inspection/Auscultation: abdomen normal to inspection Percussion/Palpation: abdomen nontender Musculoskeletal Head/Neck/Chest: normocephalic Skin no rashes, warm and dry + pallor Neurologic moves all extremities Psychiatric A+Ox3, euthymic affect Orientation: alert Discharge Data Consultations 10/04/20 00:43 ED Decision to Admit Stat 10/04/20 01:51 Consult Gastroenterology Routine Procedures Performed Operation Date: 10/04/20 16:45 Actual Procedures p Esophagogastroduodenoscopy - Victoriano Clinton Case, DO Hospital Course (1) Acute blood loss anemia: Mrs. Curry is an 80 yo woman with a PMHx of permanent atrial fibrillation s/p AICD on chronic anticoagulation with Xarelto and CHF who presented with blood loss anemia concerning for lower GI bleed. Blood loss anemia - concerning for lower GI bleed - Hgb 4.8 on admission, 7.6 on day of discharge after 4 units pRBCs - Xarelto held, continuing to hold until outpatient follow-up - EGD showed no evidence of bleed: esophagus and stomach normal, non-bleeding diverticulum of duodenum - Colonoscopy recommended by GI but patient declined at this time - Abdominal CT showed no abdominal masses, non-specific infiltration around central mesentery, postoperative changes of sigmoid colon resection, cholelithiasis, and early signs of cirrhosis present - GI recommends nuclear medicine tagged RBC scan if anemia is persistent - Orders placed for CBC for 10/06 - PCP follow-up scheduled 10/10 - Outpatient follow-up with GI Atrial fibrillation: - S/p AV calos ablation in 2013, AICD in place - Follows locally with Dr. Frank at [facility] - Continue to hold Xarelto in setting of acute GI bleed until seen by PCP HFrEF CHF (congestive heart failure): - Last known EF was 40-45% (07/26) - Continued home meds Alcohol use - Consumes ~20 drink/ week Liver cirrhosis - CT scan showed heterogeneous liver with nodularity suggestive of early cirrhosis - LFTs normal this admission -Discussed cessation/ reduction Discharge Plan Discharge Items Patient Disposition: Home - Self-Care Reason For Visit: GI BLEED Discharge Diagnosis: Acute Blood Loss Anemia, suspect lower GI source Condition on Discharge: Good Activity: Per Instructions section Non-emergency contact: Primary Care Provider and Software Sales Consultant Call non-emergency contact if: you have any medication questions, your symptoms worsen and your temperature is above 101 Follow-up/Referrals: Nelsy Ruiz MD [Physician] - (PATIENT [place] KN[place] [facility] SHE WILL NEED TO BE A NEW PATIENT. DR RUIZ DOESN'T HAVE ANY OPENINGS FOR A FEW MONTHS. WILL SCHEUDLE PATIENT WITH ANOTHER PROVIDER.) Rajesh Badillo DO [Physician] - 10/10/20 3:00 pm (VANNA BARRETO PA-C AT [facility] [place]) PCP,NO [Primary Care Provider] - Diet: Regular Addtl Attending Provider Instructions: Ms. Curry, It was our pleasure caring for you at [facility] from 10/03/20 to 10/05/20 for your symptomatic anemia with suspected blood loss from your lower gastrointestinal tract. On your admission your hemoglobin level (blood level) was dangerously low at 4.8. You were given 4 total units of packed red blood cells through a transfusion to replenish the blood you had loss. Based on your history, there was concern for gastrointestinal bleeding (bleeding in your stomach or intestines). You underwent an EGD with our Software Sales Consultant which was normal and without bleeding lesions. They had recommended a colonoscopy as well to search for bleeding in your lower GI tract (colon and lower intestines), but you had declined at this time and preferred to watch for further bleeding instead. GI also recommended that should your anemia continue to worsen that a Nuclear Med Tagged RBC bleeding scan could be completed. This can be discussed with your PCP. A CT scan was also conducted while you were admitted and no masses were seen. There were concerns for the beginnings of liver damage and we would recommend you either stop or significantly reduce your alcohol intake. We would to continue to monitor your blood counts upon discharge and this can be discussed with your PCP as well. Please have blood drawn tomorrow after noon (10/06/20) to monitor your hemoglobin. You can present to any [facility] to have this done. Please also follow up with your new PCP early next week. Please continue to hold your Xarelto until resumed by your PCP. Please follow the instructions below after discharge: -An order for a CBC was given to you on discharge, please have your lab work drawn on the evening of 10/06/20 -Please follow up your PCP early next week, an appointment will be made for you. -Please continue holding your blood thinner medication Xarelto until resumed by your PCP Pending Studies at Discharge: No Stand-Alone Forms: My [facility] Labs, Smoking Cessation Medications and DC Order Prescriptions: Continued carvedilol 25 mg tablet 25 mg PO BID Qty: 180 RF: 3 triamterene-hydrochlorothiazid 37.5-25 mg capsule 1 cap PO DAILY Qty: 90 RF: 3 furosemide 20 mg tablet 20 mg PO DAILY PRN (Reason: edema) Qty: 30 RF: 5 Discontinued Xarelto 20 mg tablet 20 mg PO PM Qty: 90 RF: 3 Discharge Orders: Discharge Order (Routine); Ordered 10/05/20 Ordered By: Floyd Elizabeth Admission Data Admit Date/Time: 10/03/20 23:45 Attending Provider: Radha Gillespie Admit Provider: Katey Siegel Primary Care Provider: PCP,NO Other Providers: Dale Angel ; Victoriano Cox Other Interventions: Discharge Summary Assessment (RN) Last Done: 10/05/20 14:55 Discharge Summary Admission Date / Reason Admission Reason For Visit: GI BLEED Procedures Performed Operation Date: 10/04/20 16:45 Actual Procedures p Esophagogastroduodenoscopy - Victoriano Cox DO Consultations Consultations: 10/04/20 00:43 ED Decision to Admit Stat 10/04/20 01:51 Consult Gastroenterology Routine Discharge Exam GENERAL: pleasant, wdwg, nad HEENT: conjunctiva without injection b/l, external nose and pinna are normal CHEST: bl soft crackles, no wheezes or rhonchi, normal respiratory effort CARDIOVASCULAR: heart regular rate and rhythm, no murmurs, gallops or rubs, 1+ non-pitting lower extremity edema ABD: no hepatosplenomegaly or masses, nontender to palpation, nondistended, normal active bowel sounds SKIN: no rashes or suspicious lesions noted PSYCH: alert and oriented x 3, speech nl rate and volume, thought process linear, affect appropriate for situation Addendum (Blank) Addendum October 05, 2020 17:35 I was present with the medical student during the service, interview and the physical exam. I independently interviewed the patient and performed the physical exam, reviewed the chart and verified the documentation and I agree with the assessment and plan of Elly Cummings. Attending Physicain Medical Student Supervision Note: I independently interviewed and examined the patient and verified the hawley history and physical, reviewed labs and image studies, discussed the case with the medical student Elly Cummings and the Resident physician Dr. Elizabeth and agree with the findings and care plan. Severe anemia - likely acute blood related. work up - Normal CT scan. neg egd. colo declined. Per GI - nuclear scan if bleeds again. continue to hold anticoagulation until appt with pcp. outpatient GI follow up.
== END 2020-10-05 15:15 | disposition home or self-care (01) | DRG 378 ==
LOC: ED 21:25 → SUATTDRO 23:45 → 2N 23:45

== ENCOUNTER 2025-02-27 20:19 | Observation (INO) ==
--- NOTE | 2025-02-27 20:36 | Emergency Department Note ---
Impression & Plan Dizziness, Fall, Skin tear of right upper extremity, Deep laceration of knee, ARTURO (acute kidney injury), Acute hypotension, Acute dehydration ED Provider Note HISTORY OF PRESENT ILLNESS: Patient is an 84-year-old female presenting with a right knee laceration after a fall. Patient reports that about an hour ago she felt very dizzy and lightheaded like she was going to pass out when she lost her footing and fell, striking a crate with bottles on her right knee. Denies striking her head or loss of consciousness. She is on Xarelto. She suffered a large laceration to her right anterior knee. Denies any abdominal pain, nausea or vomiting. Denies any chest pain, shortness of breath or lightheadedness prior to her fall. Currently complaining of right knee pain. Reports tetanus is up-to-date. ROS: as above PHYSICAL EXAM: Constitutional: Patient appears in no acute distress. HENT: Head: Normocephalic and atraumatic. Eyes: EOMI, PERRL Mouth/Throat: Mucous membranes moist. Neck: Trachea midline. Neck supple. Cardiovascular: Paced rhythm. No murmurs, rubs or gallops. Intact distal pulses. Pulmonary/Chest: No respiratory distress. Breath sounds clear and equal bilaterally. No wheezes or rales. Abdominal: Abdomen soft, no tenderness, rebound or guarding. Musculoskeletal: - Large 14 cm cm linear laceration to R knee overlying anterior knee that appears to go through epidermis and dermis. Patient able to flex and extend at knee. - Large skin tear to right forearm. Skin: Warm and dry. Psychiatric: Appropriate mood and affect for situation. Neurological: Alert and keenly responsive. CN II-XII grossly intact, moving all extremities equally and fully. MDM: - Vitals signs showed hypotension. - History obtained via patient. History as above. - Chronic conditions affecting care: Metastatic lung cancer; A-fib (on Xarelto); CHF (EF 40-45%); cardiomyopathy; ICD; CKD - Differential diagnoses include, but are not limited to: Penetrating knee injury; intracranial hemorrhage; dysrhythmia; electrolyte abnormality; pelvic fracture - Order placed for continuous cardiac monitoring. At this time, monitor showed rate of 70 bpm with paced rhythm, per my interpretation. - External medical records reviewed. - EKG image interpreted by myself showed paced rhythm. Rate 70 bpm. - Laboratory workup interpreted by myself showed normal WBC; elevated INR (1.2); hyponatremia (Na 127); ARTURO (Cr 1.67); normal troponin; elevated BNP (382); normal procalcitonin; normal lactate - Blood cultures obtained - Patient given 500 cc NS in ER with minimal improvement in BPs. - Patient given 2 mg IV morphine for further pain control in ER. - Patient given 3g IV ancef given extensive knee laceration and concern for possible joint involvement. - CXR image reviewed interpreted by myself is negative for pneumothorax, per my interpretation. - Xray right knee image reviewed by myself is negative for fracture, per my interpretation. - CT head wo contrast negative for acute pathology - CT cervical spine wo contrast negative for acute injury - CT chest with IV contrast showed multiple chronic pathologies consistent with the patient's metastatic lung cancer. - CT abdomen/pelvis with IV contrast negative for acute traumatic injury. Noted to have diffuse soft tissue edema consistent with anasarca. - Given the knee laceration, did discuss case with orthopedist on-call, Dr. Wooten, at 20:38. He recommended obtaining a CT scan of the right knee without contrast to rule out traumatic arthrotomy. CT right knee was ordered and obtained. Dr. Wooten review the images and did not see any obvious air in the joint to suggest traumatic arthrotomy. Recommended that the patient receive IV Ancef, washed the wound and closed with nylon sutures, a dressing and keep the knee in a knee immobilizer. - CT knee wo contrast negative for extension into the joint space. Noted to have superficial laceration involving the anterior knee. - Patient given an additional 500 cc NS in ER with minimal improvement in her BP. - Dizziness and fall likely secondary to patient's hypotension. - Knee laceration and right arm skin tear repaired by ACACIA. Please see procedure note. - Discussed imaging results and laboratory workup with the patient and her family at bedside. Patient is still having significantly soft pressures despite fluids in the emergency department. She is likely the just very dry and her low blood pressure is likely the source of her dizziness and subsequent fall this evening. Patient is normally ambulatory at home. Concerned about her persistent dizziness in the setting of her hypotension and her safety at home. Family and patient feel comfortable with plan for admission given that she is still dizzy and her blood pressures are still low in the ER despite fluid boluses. She likely needs slow fluid resuscitation given her history of heart failure. - Discussion was had with case filler about patient's case and need for admission - Hospitalist consulted for admission - Patient admitted to [facility] for further evaluation and management. 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 Presumed cancer Cholelithiasis (Acute) CKD (chronic kidney disease) stage 3, GFR 30-59 ml/min History of alcohol abuse Venous insufficiency Cirrhosis Insomnia Anticoagulant long-term use Cardiomyopathy ICD (implantable cardioverter-defibrillator), biventricular, in situ Atrial fibrillation Permanent. S/P BiV ICD 2010, rate controlled by AV calos ablation 2013. CHF (congestive heart failure) Chronic systolic, EF 40-45% Medical History (Updated 02/27/25 @ 23:06 by Olga Paige MD) CHL (conductive hearing loss) Mixed hearing loss of left ear CKD (chronic kidney disease) CHF (congestive heart failure) History of alcohol abuse quit 2019 History of GI bleed Hx of breast cancer Atrial fibrillation pt can't recall when first dx, been at least since 2009 > follows with Dr. Frank Hypokalemia Left bundle branch block (LBBB) Non-ischemic cardiomyopathy s/p Bi-V ICD implantation 2010. EF 40-45% Lyme disease Surgical History History of left cataract extraction History of hysterectomy History of tooth extraction Hx of bilateral mastectomy hx of implants, then removal History of hand surgery right hand History of cardiac radiofrequency ablation After failed cardioversion, AV calos ablation 02/24/2014 History of cardiac cath [facility] > 2019 > no stents History of colonoscopy History of cardioversion 01/2014 for A fib. Was in NSR for less than 24hrs. H/O hysterectomy for benign disease AICD (automatic cardioverter/defibrillator) present [employer] > remote checks History of partial colectomy (~2005) for colon perf. no cancer > hx colostomy then reversed Family History Mother Breast cancer Father Lung cancer Other Family history non-contributory Denies family history of Ovarian cancer Diabetes Myocardial infarction Colorectal cancer Stroke Social History Smoking Status: Former smoker Tobacco Type: Cigarettes Age Started Using Tobacco: 20; Age Quit Using Tobacco: 40; packs per day: 5; Cigarettes Per Day: 6-10 cig per day; Second Hand Exposure: No; Do You Dip or Chew Tobacco: No; Hx Alcohol Use: No Hx Substance Use: No Preferred Language: Georgian Communication Ability: Effective Communication Ability Comment: hard of hearing Visual Impairment: Limited Hearing Ability: Hard of Hearing [employer] Required: No Beliefs That Will Affect Care: None marital status: Current Living Situation: Alone Current Living Situation Comment: With son current occupational status: retired How many Children do You have: 1 Feels Safe at Home: Yes Childhood Exposure to Second-Hand Smoke: Yes Diet: low salt and regular caffeine: Yes during the past year weight has: decreased > 10 lbs Dental Care, Regularly: Yes Physical Activity Frequency: Does not Exercise Physical Activity Frequency Comment: walks Seatbelt Use: always Sunscreen Use: Yes Assistive Devices: Cane and Hearing Aid - Right Allergies Allergies Allergy/AdvReac Type Severity Reaction Status Date / Time erythromycin base AdvReac Intermediate HEARING Verified 02/07/25 12:19 LOSS Penicillins AdvReac Intermediate Numbness Verified 02/07/25 12:19 cephalexin AdvReac Mild VAGINAL Verified 02/07/25 12:19 ITCHING Home Meds Home Medications Medication Instructions Recorded Confirmed oxycodone 10 mg tablet,oral ONLY 10 mg PO Q4 02/27/25 02/27/25 (not feeding tubes) Previous Rx's Medication Instructions Recorded carvedilol 25 mg tablet 25 mg PO BID #180 tabs 02/06/24 empagliflozin 10 mg tablet 10 mg PO QAM #90 tabs 04/05/24 (Jardiance) rivaroxaban 20 mg tablet (Xarelto) 20 mg PO PM #90 tabs 04/05/24 spironolactone 25 mg tablet 25 mg PO QAM #90 tabs 05/05/24 furosemide 40 mg tablet 80 mg (2 x 40 mg) PO QAM #90 tabs 06/08/24 potassium chloride 10 mEq 20 meq (2 x 10 mEq) PO TID #90 tabs 07/01/24 tablet,extended release (Klor-Con) tiotropium 2.5 mcg-olodaterol 2.5 2 puff inhalation DAILY #4 grams 11/29/24 mcg/actuation mist for inhalation (Stiolto Respimat) Portable Oxygen #1 ea 12/03/24 Results & Data (ED) Vital Signs Vital Signs - 24 hr 02/27/25 20:26 02/27/25 20:31 02/27/25 21:10 Temperature 35.7 C L Temperature Source Oral Pulse Rate 92 H 85 Pulse Rate [Finger] 70 Respiratory Rate 18 22 Blood Pressure 87/49 L Blood Pressure [Right Arm] 80/56 L Blood Pressure Mean 61 Blood Pressure Mean [Right Arm] 64 Pulse Oximetry 94 91 Oxygen Delivery Method Room Air Room Air Sepsis Recent Fever Within 48 Hours No Sepsis New/Unexplained Change in Mental Status No Sepsis Action Taken by Nursing Physician Notified 02/27/25 21:11 02/27/25 22:00 Temperature Temperature Source Pulse Rate Pulse Rate [Finger] 70 Respiratory Rate 18 Blood Pressure Blood Pressure [Right Arm] 86/52 L 88/58 L Blood Pressure Mean Blood Pressure Mean [Right Arm] 63 68 Pulse Oximetry 94 Oxygen Delivery Method Room Air Sepsis Recent Fever Within 48 Hours Sepsis New/Unexplained Change in Mental Status Sepsis Action Taken by Nursing Laboratory Data 02/27/25 20:31 02/27/25 20:31 Lab Results 02/27/25 Range/Units 20:31 WBC 7.67 (4.8-10.8) K/ul RBC 4.04 L (4.20-5.40) M/uL Hgb 12.5 (12.0-16.0) g/dL Hct 37.8 (37.0-47.0) % MCV 93.6 (80.0-100.0) fL MCH 30.9 (25.0-34.0) pg MCHC 33.1 (32.0-36.0) g/dL RDW Std Deviation 56.3 H (36.4-46.3) fL RDW Coeff of Yogesh 16.4 H (11.5-14.5) % Plt Count 202 (130-400) K/uL MPV 9.8 (9.4-12.4) fL Immature Gran % (Auto) 0.4 % Neut % (Auto) 83.8 % Lymph % (Auto) 7.8 % [place] % (Auto) 7.3 % Eos % (Auto) 0.4 % Baso % (Auto) 0.3 % Neut # (Auto) 6.43 (1.40-6.50) K/uL Lymph # (Auto) 0.60 L (1.20-3.40) K/uL [place] # (Auto) 0.56 (0.11-0.59) K/uL Eos # (Auto) 0.03 (0.00-0.50) K/uL Baso # (Auto) 0.02 (0.00-0.20) K/uL Immature Gran # (Auto) 0.03 (0.01-0.20) K/uL PT 12.7 H (9.0-12.0) Seconds INR 1.2 H (0.9-1.1) APTT 30 (21-31) Seconds PTT Ratio 1.1 Sodium 127 L (136-145) mmol/L Potassium 4.7 (3.5-5.1) mmol/L Chloride 92 L (98-107) mmol/L Carbon Dioxide 27 (21-32) mmol/L Anion Gap 8 (3-11) BUN 40 H (6-23) mg/dl Creatinine 1.67 H (0.6-1.2) mg/dl Est Cr Clr Drug Dosing 29.7 ml/min eGFR 30.02 BUN/Creatinine Ratio 24.0 H (10-20) Glucose 120 H (70-99(Fasting)) mg/dl Lactate 2.0 (0.4-2.0) mmol/L Calcium 9.6 (8.6-10.3) mg/dl Magnesium 2.2 (1.7-2.4) mg/dl Total Bilirubin 1.3 H (0.2-1.0) mg/dl AST 13 (13-39) U/L ALT 5 L (7-52) U/L Alkaline Phosphatase 102 (34-104) U/L Troponin I High Sens 7.0 (0-14) pg/ml B-Natriuretic Peptide 382 H (0-100) pg/ml Total Protein 7.1 (6.0-8.3) gm/dl Albumin 3.3 L (3.4-5.0) gm/dl Globulin 3.8 (2.5-4.0) gm/dl Albumin/Globulin Ratio 0.9 (0.9-2) Procalcitonin 0.06 (0-0.5) ng/ml Administered Medications Discontinued Medications Cefazolin Sodium 3,000 mg/ (Dextrose) 72.5 mls @ 145 mls/hr IV NOW STA Stop: 02/27/25 20:58 Last Infusion: 02/27/25 21:29 Dose: Infused Documented By: Admin: 02/27/25 20:57 Dose: 145 mls/hr Documented By: MADY Sodium Chloride (Nss) 500 mls @ 999 mls/hr IV .Q31M ONE Stop: 02/27/25 21:44 Last Infusion: 02/27/25 22:17 Dose: Infused Documented By: Admin: 02/27/25 21:24 Dose: 999 mls/hr Documented By: MADY Ioversol (Optiray 320 100ml) 93 ml IV ONCE ONE Stop: 02/27/25 21:39 Last Admin: 02/27/25 21:39 Dose: 93 ml Documented By: NESTOR Lidocaine/Epinephrine (Lidocaine 1%/Epinephrine 1:100,000 50 Ml Vial) 10 ml INFIL NOW ONE Stop: 02/27/25 22:39 Last Admin: 02/27/25 22:44 Dose: 10 ml Documented By: DIANNE Morphine Sulfate (Morphine Sulfate 2 Mg/Ml Carp) 2 mg IV NOW STA Stop: 02/27/25 21:54 Last Admin: 02/27/25 21:56 Dose: 2 mg Documented By: MADY Imaging Data Radiologist's Impression: Abdomen/Pelvis CT 02/27/25 20:29 Exam(s): CT ABDOMEN + PELVIS With Contrast IV Amt: 93cc opti 320 EXAM: CT Abdomen and Pelvis With Intravenous Contrast CLINICAL HISTORY: fall. TECHNIQUE: Axial computed tomography images of the abdomen and pelvis with intravenous contrast. CTDI is 34 mGy and DLP is 1285 mGy-cm. Automated exposure control was utilized for the study. A dose lowering technique was utilized adhering to the principles of ALARA. CONTRAST: Patient received 93cc opti 320 of IV contrast COMPARISON: No relevant prior studies available. FINDINGS: Artifacts: Scatter artifact likely related to patient's arm position. Limitations: There is diffuse respiratory artifact, which degrades image quality throughout the examination. Lung bases: Rounded solid mass in the right lower lobe.. There is a soft tissue mass involving the right pleura with extension into the extrapleural fat measuring 1.7 x 2.6 cm. Pleural space: Small volume right hypodense pleural effusion. Heart: Massive cardiomegaly, most prominent involving the atria, right- [id number]. Mild pericardial effusion. ABDOMEN: Liver: There is prominent reflux of contrast into the intrahepatic IVC and hepatic veins. The intrahepatic IVC is markedly dilated measuring 4. 2 x 4.1 cm. No evidence for acute traumatic injury to the liver. Gallbladder and bile ducts: There is a gallstone in the gallbladder wall fundus which is located in the pelvis, measuring 2.1 x 2.7 cm. No ductal dilation. Pancreas: The pancreas is grossly unremarkable, accounting for respiratory artifact. No ductal dilation. Spleen: The spleen appears intact, accounting for artifact. No perisplenic fluid. Adrenals: Normal. No mass. Kidneys and ureters: The kidneys demonstrate no evidence for traumatic injury, pyelonephritis or hydronephrosis. Incidental cortical cysts. Stomach and bowel: No obvious evidence for traumatic injury to the bowel. No bowel obstruction with prominent stool burden. Postsurgical changes involving the sigmoid colon. PELVIS: Appendix: No findings to suggest acute appendicitis. Bladder: Normal. No mass. Reproductive: Unremarkable as visualized. ABDOMEN and PELVIS: Intraperitoneal space: No free intraperitoneal fluid. No definite pneumoperitoneum. Retroperitoneal space: No definite retroperitoneal hematoma. Bones/joints: Probable interosseous hemangioma involving the L2 vertebral body. No acute osseous traumatic injury or abnormal alignment. Soft tissues: Diffuse soft tissue edema suggesting anasarca. No appreciable overlying traumatic soft tissue injury, accounting for diffuse edema. Vasculature: Atherosclerotic calcification of the aorta. No dissection or aneurysm. Lymph nodes: Normal. No enlarged lymph nodes. IMPRESSION: 1. Evaluation for traumatic injury is limited by diffuse respiratory artifact. No obvious significant acute traumatic injury to the abdomen or pelvis. 2. Rounded solid mass in the right lower lobe.. There is a soft tissue mass involving the right pleura with extension into the extrapleural fat measuring 1.7 x 2.6 cm. The primary consideration is metastatic disease to the pleura. This raises the concern for a lung neoplasm in the right lower lobe. 3. Diffuse soft tissue edema suggesting anasarca. Electronically signed by: Edi David MD 02/27/25 22:[address] 02/27/25 20:29 Exam(s): CT C SPINE EXAM: CT Cervical Spine Without Intravenous Contrast CLINICAL HISTORY: fall. TECHNIQUE: Axial computed tomography images of the cervical spine without intravenous contrast. CTDI is 34 mGy and DLP is 1285 mGy-cm. Automated exposure control was utilized for the study. A dose lowering technique was utilized adhering to the principles of ALARA. COMPARISON: No relevant prior studies available. FINDINGS: Vertebrae: The vertebral bodies are intact without acute osseous traumatic injury. No anterolisthesis or retrolisthesis is identified. The facet joints are well aligned without subluxation or dislocation. The pedicles, transverse processes and spinous processes are intact. Bilateral chronic facet hypertrophic arthropathy incidentally noted. Discs/spinal canal/neural foramina: Incidental chronic appearing mild multilevel disc spondylosis noted with narrowing and marginal hypertrophic changes. No significant acute central canal stenosis identified. Soft tissues: Normal. Lung apices: The included lung apices demonstrate no evidence for acute traumatic injury. Left apical capping noted anteriorly. IMPRESSION: No acute osseous traumatic injury or significant abnormal alignment involving the cervical spine. Electronically signed by: Edi David MD 02/27/25 22:[address] 02/27/25 20:29 Exam(s): CT CHEST With Contrast IV Amt: 93cc opti 320 EXAM: CT Chest With Intravenous Contrast CLINICAL HISTORY: fall. TECHNIQUE: Axial computed tomography images of the chest with intravenous contrast. CTDI is 34 mGy and DLP is 1285 mGy-cm. Automated exposure control was utilized for the study. A dose lowering technique was utilized adhering to the principles of ALARA. CONTRAST: Patient received 93cc opti 320 of IV contrast COMPARISON: No relevant prior studies available. FINDINGS: Artifacts: Scatter artifact likely related to patient's arm position. Limitations: There is respiratory artifact, which degrades image quality on multiple image slices. Lungs: There are pleural-based masses involving the posterior aspect of the right lung with invasion of the extrapleural fat in erosive destruction of the adjacent ribs. The largest structure is noted near the level of the consuelo measuring 2.6 x 4 cm and invades the 7th rib and minimally invades the 6th rib. There are at least 2 additional lesions caudally with involvement of the right 9th rib. There is a rounded mass involving the posteromedial aspect of the right lower lobe measuring 3.7 x 6.2 x 5.8 cm with an adjacent smaller satellite lesion noted inferomedially measuring 2.2 cm. No pulmonary contusive injury. Pleural space: Trace hypodense right pleural effusion noted. No pneumothorax. Heart: Massive cardiomegaly, most prominently involving the atria, [id number]-[id number], with the right atrium measuring 12.3 x 13.1 cm in size on a single transaxial image. Mild pericardial effusion. No significant coronary artery calcifications. Mediastinum: No evidence for mediastinal traumatic injury. Bones/joints: No traumatic rib fracture. The thoracic vertebral bodies are intact. The sternum is intact. Soft tissues: Normal. Vasculature: Atherosclerotic disease. No definite evidence for aortic dissection, accounting for suboptimal opacification. Lymph nodes: Normal. No enlarged lymph nodes. Tubes, lines and devices: Left subclavian approach biventricular defibrillator pacer noted. IMPRESSION: 1. Accounting for respiratory artifact, no definite significant acute traumatic injury to the chest/thorax. 2. There are pleural-based masses involving the posterior aspect of the right lung with invasion of the extrapleural fat in erosive destruction of the adjacent ribs. The largest structure is noted near the level of the consuelo measuring 2.6 x 4 cm and invades the 7th rib and minimally invades the 6th rib. There are at least 2 additional lesions caudally with involvement of the right 9th rib. Suspect metastatic disease. 3. There is a rounded mass involving the posteromedial aspect of the right lower lobe measuring 3.7 x 6.2 x 5.8 cm with an adjacent smaller satellite lesion noted inferomedially measuring 2.2 cm. The primary consideration is a primary lung carcinoma. 4. Massive cardiomegaly, most prominently involving the atria, right- [id number], with the right atrium measuring 12.3 x 13.1 cm in size on a single transaxial image. Mild pericardial effusion. 5. Trace hypodense right pleural effusion noted. Electronically signed by: Edi David MD 02/27/25 22:29 PM Chest X-Ray 02/27/25 20:29 Exam(s): XR CXR 1 VIEW EXAM: XR Chest, 1 View CLINICAL HISTORY: Sepsis. TECHNIQUE: Frontal view of the chest. COMPARISON: CT chest performed earlier; portable chest 01/07/2025 FINDINGS: Lungs: Right basilar opacity, similar to increased from the previous examination. Pleural space: The right pleural effusion noted on the CTA exam is suggested. No pneumothorax Heart: Massive cardiomegaly, similar to larger from the previous exam. Mediastinum: Limited by obliquity. Bones/joints: The erosive changes involving the posterior right ribs noted on the CT exam and are not well delineated. No acute fracture. Soft tissues: The soft tissue mass in the right perihilar region noted on the prior examination is suggested but is partially obscured by obliquity. Tubes, lines and devices: Left subclavian approach biventricular defibrillator pacer. IMPRESSION: 1. The soft tissue mass in the right perihilar region noted on the prior examination is suggested but is partially obscured by obliquity. 2. Right basilar opacity, similar to increased from the previous examination. 3. The erosive changes involving the posterior right ribs noted on the CT exam and are not well delineated. Electronically signed by: Edi David MD 02/27/25 23:[address] 02/27/25 20:29 Exam(s): CT HEAD Without Contrast EXAM: CT Head Without Intravenous Contrast CLINICAL HISTORY: fall. TECHNIQUE: Axial computed tomography images of the head/brain without intravenous contrast. CTDI is 34 mGy and DLP is 1285 mGy-cm. Automated exposure control was utilized for the study. A dose lowering technique was utilized adhering to the principles of ALARA. COMPARISON: CT Head dated 10/19/2024 FINDINGS: Limitations: There is motion artifact, which degrades image quality throughout the examination. Brain: No definite intracranial hemorrhage; evaluation for subtle extra-axial pathology along the margins of the parenchyma is limited in regions of streak motion artifact. No significant mass effect identified. There are a few areas of decreased attenuation in the deep cerebral white matter consistent with mild small vessel ischemic/degenerative changes. The cerebral and cerebellar sulci are mildly prominent consistent with mild brain atrophy. Ventricles: No midline shift or significant effacement of the ventricles. Bones/joints: No definite skull fracture. Soft tissues: No significant overlying soft tissue traumatic injury identified. No radiopaque foreign body or subcutaneous emphysema. Vasculature: Atherosclerotic disease. Sinuses: Unremarkable as visualized. No acute sinusitis. Mastoid air cells: Unremarkable as visualized. No mastoid effusion. IMPRESSION: No definite intracranial hemorrhage, accounting for limitations with motion artifact, as detailed above. No appreciable mass effect or midline shift. Electronically signed by: Edi David MD 02/27/25 22:30 PM Knee X-Ray 02/27/25 20:29 Exam(s): XR RIGHT KNEE, 1-2 views EXAM: XR Right Knee, 1 or 2 Views CLINICAL HISTORY: large laceration. TECHNIQUE: Frontal and/or lateral views of the right knee. COMPARISON: Bilateral knees 04/09/2024 FINDINGS: Bones/joints: Normal. No acute fracture. No dislocation. Soft tissues: Laceration injury noted involving the anterior soft tissues extending subjacent to the inferior margin of the patella. No radiopaque foreign body. Diffuse subcutaneous edema and soft tissue swelling, more prominent from the previous examination. IMPRESSION: 1. Laceration injury noted involving the anterior soft tissues extending subjacent to the inferior margin of the patella. No radiopaque foreign body. No acute osseous abnormality. 2. Diffuse subcutaneous edema and soft tissue swelling, more prominent from the previous examination. The reported laceration is not clearly delineated. Electronically signed by: Edi David MD 02/27/25 23:[address] 02/27/25 20:42 Exam(s): CT RIGHT KNEE Without Contrast EXAM: CT Right Lower Extremity Without Intravenous Contrast, Knee CLINICAL HISTORY: r/o traumatic arthrotomy. TECHNIQUE: Axial computed tomography images of the right knee without intravenous contrast. CTDI is 34 mGy and DLP is 1285 mGy-cm. Automated exposure control was utilized for the study. A dose lowering technique was utilized adhering to the principles of ALARA. COMPARISON: No relevant prior studies available. FINDINGS: Bones/joints: Subtle superficial laceration injury involving the anterior knee medial to the patella, estimated at less than 1 cm in depth. No radiopaque foreign body. No hematoma. Trace suprapatellar joint effusion is hypodense without a layering hematocrit. Moderate joint space narrowing involving the medial compartment. Mild degenerative changes of the lateral and patellofemoral compartment. No acute fracture. No dislocation. Soft tissues: Diffuse subcutaneous edema and fat stranding noted throughout the prominent soft tissues of the knee joint with overlying dermal thickening. The appearance is similar to the minimally included medial aspect of the contralateral knee. There superficial prominent tortuous presumed venous structures noted. Fat atrophy of the regional muscles. IMPRESSION: 1. Subtle superficial laceration injury involving the anterior knee medial to the patella, estimated at less than 1 cm in depth. No radiopaque foreign body. No hematoma. No extension of the joint space. 2. Diffuse subcutaneous edema and fat stranding noted throughout the prominent soft tissues of the knee joint with overlying dermal thickening. The appearance is similar to the minimally included medial aspect of the contralateral knee. There superficial prominent tortuous presumed venous structures noted. The appearance raises suspicion for chronic underlying venous stasis changes in addition to potential traumatic edema. Electronically signed by: Edi David MD 02/27/25 22:33 PM Discharge Plan Visit Data Chief Complaint: Fall Stated Complaint: GLF, LAC R FOREARM, +THINNERS ED Provider: Olga Paige Discharge Problem: Dizziness, Fall, Skin tear of right upper extremity, Deep laceration of knee, ARTURO (acute kidney injury), Acute hypotension, Acute dehydration Patient Disposition: Admitted As Inpatient Condition: Fair Forms Stand Alone Forms: [employer] Prescriptions Prescriptions: No Action carvedilol 25 mg tablet 25 mg PO BID Qty: 180 3RF Jardiance 10 mg tablet 10 mg PO QAM Qty: 90 3RF Xarelto 20 mg tablet 20 mg PO PM Qty: 90 3RF Rx Instructions: must administer with evening meal spironolactone 25 mg tablet 25 mg PO QAM Qty: 90 3RF furosemide 40 mg tablet 80 mg PO QAM Qty: 90 3RF potassium chloride [Klor-Con 10] 10 mEq tablet extended release 20 meq PO TID Qty: 90 1RF Stiolto Respimat 2.5-2.5 mcg/actuation mist 2 puff inhalation DAILY Qty: 4 3RF (DME) Portable Oxygen Misc See Rx Instructions .MEDSUPPLY Qty: 1 0RF Rx Instructions: Oxygen 2 liters continuous via nasal cannula [id number] with portable concentrator. AMPARO 99 oxycodone 10 mg Tablet, Oral Only 10 mg PO Q4 Referrals Referrals: Rajesh Badillo, DO [Primary Care Provider] -
[2025-02-27 20:46] LABS: Hematocrit (blood only) 37.8 % (37.0-47.0); Hemoglobin 12.5 g/dL (12.0-16.0); Immature Granulocytes # (auto) 0.03 K/uL (0.01-0.20); Immature Granulocytes % (auto) 0.4 %; Mean Corpuscular Hemoglobin 30.9 pg (25.0-34.0); Mean Corpuscular Volume 93.6 fL (80.0-100.0); Platelet Count 202 K/uL (130-400); RDW Standard Deviation 56.3 fL (36.4-46.3); Red Blood Count 4.04 M/uL (4.20-5.40); White Blood Count 7.67 K/ul (4.8-10.8)
[2025-02-27 21:10] LABS: Alanine Aminotransferase 5.0 U/L (7-52); Albumin Globulin Ratio 0.9 (0.9-2); Albumin Level 3.3 gm/dl (3.4-5.0); Alkaline Phosphatase 102.0 U/L (34-104); Anion Gap 8.0 (3-11); Bilirubin,Total 1.3 mg/dl (0.2-1.0); Blood Urea Nitrogen 40.0 mg/dl (6-23); Calcium 9.6 mg/dl (8.6-10.3); Carbon Dioxide 27.0 mmol/L (21-32); Chloride 92.0 mmol/L (98-107); Creatinine Clr Calc Pharmacy 29.7 ml/min; Globulin 3.8 gm/dl (2.5-4.0); Glucose 120.0 mg/dl (70-99(Fasting)); Magnesium 2.2 mg/dl (1.7-2.4); Potassium 4.7 mmol/L (3.5-5.1); Sodium 127.0 mmol/L (136-145); Total Protein 7.1 gm/dl (6.0-8.3)
[2025-02-27 21:23] LABS: INR 1.2 (0.9-1.1); Partial Thromboplastin Time 30 Seconds (21-31); Prothrombin Time 12.7 Seconds (9.0-12.0)
[2025-02-27] MEDS: SODIUM CHLORIDE 0.9% 500 ML IV ONE (21:24)
[2025-02-27] MEDS: OPTIRAY 320 100ml IV ONE (21:39)
[2025-02-27] MEDS: MoRPHine SULFATE 2 MG/ML CARP IV STA (21:56)
--- NOTE | 2025-02-27 22:23 | CT Scan Report ---
Exam(s): CT ABDOMEN + PELVIS With Contrast IV Amt: 93cc opti 320 EXAM: CT Abdomen and Pelvis With Intravenous Contrast CLINICAL HISTORY: fall. TECHNIQUE: Axial computed tomography images of the abdomen and pelvis with intravenous contrast. CTDI is 34 mGy and DLP is 1285 mGy-cm. Automated exposure control was utilized for the study. A dose lowering technique was utilized adhering to the principles of ALARA. CONTRAST: Patient received 93cc opti 320 of IV contrast COMPARISON: No relevant prior studies available. FINDINGS: Artifacts: Scatter artifact likely related to patient's arm position. Limitations: There is diffuse respiratory artifact, which degrades image quality throughout the examination. Lung bases: Rounded solid mass in the right lower lobe.. There is a soft tissue mass involving the right pleura with extension into the extrapleural fat measuring 1.7 x 2.6 cm. Pleural space: Small volume right hypodense pleural effusion. Heart: Massive cardiomegaly, most prominent involving the atria, right- [id number]. Mild pericardial effusion. ABDOMEN: Liver: There is prominent reflux of contrast into the intrahepatic IVC and hepatic veins. The intrahepatic IVC is markedly dilated measuring 4. 2 x 4.1 cm. No evidence for acute traumatic injury to the liver. Gallbladder and bile ducts: There is a gallstone in the gallbladder wall fundus which is located in the pelvis, measuring 2.1 x 2.7 cm. No ductal dilation. Pancreas: The pancreas is grossly unremarkable, accounting for respiratory artifact. No ductal dilation. Spleen: The spleen appears intact, accounting for artifact. No perisplenic fluid. Adrenals: Normal. No mass. Kidneys and ureters: The kidneys demonstrate no evidence for traumatic injury, pyelonephritis or hydronephrosis. Incidental cortical cysts. Stomach and bowel: No obvious evidence for traumatic injury to the bowel. No bowel obstruction with prominent stool burden. Postsurgical changes involving the sigmoid colon. PELVIS: Appendix: No findings to suggest acute appendicitis. Bladder: Normal. No mass. Reproductive: Unremarkable as visualized. ABDOMEN and PELVIS: Intraperitoneal space: No free intraperitoneal fluid. No definite pneumoperitoneum. Retroperitoneal space: No definite retroperitoneal hematoma. Bones/joints: Probable interosseous hemangioma involving the L2 vertebral body. No acute osseous traumatic injury or abnormal alignment. Soft tissues: Diffuse soft tissue edema suggesting anasarca. No appreciable overlying traumatic soft tissue injury, accounting for diffuse edema. Vasculature: Atherosclerotic calcification of the aorta. No dissection or aneurysm. Lymph nodes: Normal. No enlarged lymph nodes. IMPRESSION: 1. Evaluation for traumatic injury is limited by diffuse respiratory artifact. No obvious significant acute traumatic injury to the abdomen or pelvis. 2. Rounded solid mass in the right lower lobe.. There is a soft tissue mass involving the right pleura with extension into the extrapleural fat measuring 1.7 x 2.6 cm. The primary consideration is metastatic disease to the pleura. This raises the concern for a lung neoplasm in the right lower lobe. 3. Diffuse soft tissue edema suggesting anasarca. Electronically signed by: Edi David MD 02/27/25 22:22 PM
--- NOTE | 2025-02-27 22:29 | CT Scan Report ---
Exam(s): CT CHEST With Contrast IV Amt: 93cc opti 320 EXAM: CT Chest With Intravenous Contrast CLINICAL HISTORY: fall. TECHNIQUE: Axial computed tomography images of the chest with intravenous contrast. CTDI is 34 mGy and DLP is 1285 mGy-cm. Automated exposure control was utilized for the study. A dose lowering technique was utilized adhering to the principles of ALARA. CONTRAST: Patient received 93cc opti 320 of IV contrast COMPARISON: No relevant prior studies available. FINDINGS: Artifacts: Scatter artifact likely related to patient's arm position. Limitations: There is respiratory artifact, which degrades image quality on multiple image slices. Lungs: There are pleural-based masses involving the posterior aspect of the right lung with invasion of the extrapleural fat in erosive destruction of the adjacent ribs. The largest structure is noted near the level of the consuelo measuring 2.6 x 4 cm and invades the 7th rib and minimally invades the 6th rib. There are at least 2 additional lesions caudally with involvement of the right 9th rib. There is a rounded mass involving the posteromedial aspect of the right lower lobe measuring 3.7 x 6.2 x 5.8 cm with an adjacent smaller satellite lesion noted inferomedially measuring 2.2 cm. No pulmonary contusive injury. Pleural space: Trace hypodense right pleural effusion noted. No pneumothorax. Heart: Massive cardiomegaly, most prominently involving the atria, edcmn-[id number]-[id number]-left, with the right atrium measuring 12.3 x 13.1 cm in size on a single transaxial image. Mild pericardial effusion. No significant coronary artery calcifications. Mediastinum: No evidence for mediastinal traumatic injury. Bones/joints: No traumatic rib fracture. The thoracic vertebral bodies are intact. The sternum is intact. Soft tissues: Normal. Vasculature: Atherosclerotic disease. No definite evidence for aortic dissection, accounting for suboptimal opacification. Lymph nodes: Normal. No enlarged lymph nodes. Tubes, lines and devices: Left subclavian approach biventricular defibrillator pacer noted. IMPRESSION: 1. Accounting for respiratory artifact, no definite significant acute traumatic injury to the chest/thorax. 2. There are pleural-based masses involving the posterior aspect of the right lung with invasion of the extrapleural fat in erosive destruction of the adjacent ribs. The largest structure is noted near the level of the consuelo measuring 2.6 x 4 cm and invades the 7th rib and minimally invades the 6th rib. There are at least 2 additional lesions caudally with involvement of the right 9th rib. Suspect metastatic disease. 3. There is a rounded mass involving the posteromedial aspect of the right lower lobe measuring 3.7 x 6.2 x 5.8 cm with an adjacent smaller satellite lesion noted inferomedially measuring 2.2 cm. The primary consideration is a primary lung carcinoma. 4. Massive cardiomegaly, most prominently involving the atria, right- [id number]-[id number], with the right atrium measuring 12.3 x 13.1 cm in size on a single transaxial image. Mild pericardial effusion. 5. Trace hypodense right pleural effusion noted. Electronically signed by: Edi David MD 02/27/25 22:29 PM
--- NOTE | 2025-02-27 22:30 | CT Scan Report ---
Exam(s): CT HEAD Without Contrast EXAM: CT Head Without Intravenous Contrast CLINICAL HISTORY: fall. TECHNIQUE: Axial computed tomography images of the head/brain without intravenous contrast. CTDI is 34 mGy and DLP is 1285 mGy-cm. Automated exposure control was utilized for the study. A dose lowering technique was utilized adhering to the principles of ALARA. COMPARISON: CT Head dated 10/19/2024 FINDINGS: Limitations: There is motion artifact, which degrades image quality throughout the examination. Brain: No definite intracranial hemorrhage; evaluation for subtle extra-axial pathology along the margins of the parenchyma is limited in regions of streak motion artifact. No significant mass effect identified. There are a few areas of decreased attenuation in the deep cerebral white matter consistent with mild small vessel ischemic/degenerative changes. The cerebral and cerebellar sulci are mildly prominent consistent with mild brain atrophy. Ventricles: No midline shift or significant effacement of the ventricles. Bones/joints: No definite skull fracture. Soft tissues: No significant overlying soft tissue traumatic injury identified. No radiopaque foreign body or subcutaneous emphysema. Vasculature: Atherosclerotic disease. Sinuses: Unremarkable as visualized. No acute sinusitis. Mastoid air cells: Unremarkable as visualized. No mastoid effusion. IMPRESSION: No definite intracranial hemorrhage, accounting for limitations with motion artifact, as detailed above. No appreciable mass effect or midline shift. Electronically signed by: Edi David MD 02/27/25 22:30 PM
--- NOTE | 2025-02-27 22:34 | CT Scan Report ---
Exam(s): CT RIGHT KNEE Without Contrast EXAM: CT Right Lower Extremity Without Intravenous Contrast, Knee CLINICAL HISTORY: r/o traumatic arthrotomy. TECHNIQUE: Axial computed tomography images of the right knee without intravenous contrast. CTDI is 34 mGy and DLP is 1285 mGy-cm. Automated exposure control was utilized for the study. A dose lowering technique was utilized adhering to the principles of ALARA. COMPARISON: No relevant prior studies available. FINDINGS: Bones/joints: Subtle superficial laceration injury involving the anterior knee medial to the patella, estimated at less than 1 cm in depth. No radiopaque foreign body. No hematoma. Trace suprapatellar joint effusion is hypodense without a layering hematocrit. Moderate joint space narrowing involving the medial compartment. Mild degenerative changes of the lateral and patellofemoral compartment. No acute fracture. No dislocation. Soft tissues: Diffuse subcutaneous edema and fat stranding noted throughout the prominent soft tissues of the knee joint with overlying dermal thickening. The appearance is similar to the minimally included medial aspect of the contralateral knee. There superficial prominent tortuous presumed venous structures noted. Fat atrophy of the regional muscles. IMPRESSION: 1. Subtle superficial laceration injury involving the anterior knee medial to the patella, estimated at less than 1 cm in depth. No radiopaque foreign body. No hematoma. No extension of the joint space. 2. Diffuse subcutaneous edema and fat stranding noted throughout the prominent soft tissues of the knee joint with overlying dermal thickening. The appearance is similar to the minimally included medial aspect of the contralateral knee. There superficial prominent tortuous presumed venous structures noted. The appearance raises suspicion for chronic underlying venous stasis changes in addition to potential traumatic edema. Electronically signed by: Edi David MD 02/27/25 22:33 PM
--- NOTE | 2025-02-27 22:38 | CT Scan Report ---
Exam(s): CT C SPINE EXAM: CT Cervical Spine Without Intravenous Contrast CLINICAL HISTORY: fall. TECHNIQUE: Axial computed tomography images of the cervical spine without intravenous contrast. CTDI is 34 mGy and DLP is 1285 mGy-cm. Automated exposure control was utilized for the study. A dose lowering technique was utilized adhering to the principles of ALARA. COMPARISON: No relevant prior studies available. FINDINGS: Vertebrae: The vertebral bodies are intact without acute osseous traumatic injury. No anterolisthesis or retrolisthesis is identified. The facet joints are well aligned without subluxation or dislocation. The pedicles, transverse processes and spinous processes are intact. Bilateral chronic facet hypertrophic arthropathy incidentally noted. Discs/spinal canal/neural foramina: Incidental chronic appearing mild multilevel disc spondylosis noted with narrowing and marginal hypertrophic changes. No significant acute central canal stenosis identified. Soft tissues: Normal. Lung apices: The included lung apices demonstrate no evidence for acute traumatic injury. Left apical capping noted anteriorly. IMPRESSION: No acute osseous traumatic injury or significant abnormal alignment involving the cervical spine. Electronically signed by: Edi David MD 02/27/25 22:37 PM
--- NOTE | 2025-02-27 22:39 | Emergency Department Note ---
ED Visit Note Patient was seen and evaluated by Dr. Paige. I was present for repair of the right knee laceration and right forearm skin tear. Risks and benefits of performing primary wound closure versus no repair were discussed with the patient who verbalizes understanding. Verbal consent was obtained prior to performing the procedure. Laceration #1. Location is right knee. There is a 14 cm transverse laceration overlying the anterior knee. This does through the subcutaneous tissues. There is no evidence of joint capsule violation. 8 cc of 1% lidocaine with epinephrine was used to anesthetize the right knee laceration. The wound was cleansed and prepped in the typical sterile fashion utilizing normal saline and Betadine. The wound was sterilely draped. Once proper anesthetization was established, the wound was further examined and demonstrated laceration without retained foreign body. The wound was copiously irrigated with normal saline and Betadine. The wound was closed using 22 simple, 4-0 and 3-0 nylon sutures with the wound edges being well approximated. Patient tolerated the procedure well. No complications were met. The wound was cleansed and dressed with an Adaptic dressing and bulky wrap to limited range of motion of the knee. The circumference of the knee is not amenable to a knee immobilizer at this time. Attention was then turned to the right forearm skin tear. Laceration #2: Location is the right forearm and has a skin tear. This is not amenable to suture. Dermabond is not felt to be appropriate in this scenario. The medial aspect of the wound edges were rolled. I was able to meticulously use sterile forceps to unroll, realign and then irrigate the wound with sterile saline and dilute iodine. Area was then dried with sterile gauze. 7 Steri- Strips were then applied. Total wound length was 10 cm. Non adherent type dressing was applied followed by bulky wrap. Patient tolerated the above procedures well. No complications. .
[2025-02-27] MEDS: LIDOCAINE 1%/EPINEPHRINE 1:100,000 50 ML VIAL INFIL ONE (22:44)
--- NOTE | 2025-02-27 23:03 | XRay Report ---
Exam(s): XR RIGHT KNEE, 1-2 views EXAM: XR Right Knee, 1 or 2 Views CLINICAL HISTORY: large laceration. TECHNIQUE: Frontal and/or lateral views of the right knee. COMPARISON: Bilateral knees 04/09/2024 FINDINGS: Bones/joints: Normal. No acute fracture. No dislocation. Soft tissues: Laceration injury noted involving the anterior soft tissues extending subjacent to the inferior margin of the patella. No radiopaque foreign body. Diffuse subcutaneous edema and soft tissue swelling, more prominent from the previous examination. IMPRESSION: 1. Laceration injury noted involving the anterior soft tissues extending subjacent to the inferior margin of the patella. No radiopaque foreign body. No acute osseous abnormality. 2. Diffuse subcutaneous edema and soft tissue swelling, more prominent from the previous examination. The reported laceration is not clearly delineated. Electronically signed by: Edi David MD 02/27/25 23:02 PM
--- NOTE | 2025-02-27 23:05 | XRay Report ---
Exam(s): XR CXR 1 VIEW EXAM: XR Chest, 1 View CLINICAL HISTORY: Sepsis. TECHNIQUE: Frontal view of the chest. COMPARISON: CT chest performed earlier; portable chest 01/07/2025 FINDINGS: Lungs: Right basilar opacity, similar to increased from the previous examination. Pleural space: The right pleural effusion noted on the CTA exam is suggested. No pneumothorax Heart: Massive cardiomegaly, similar to larger from the previous exam. Mediastinum: Limited by obliquity. Bones/joints: The erosive changes involving the posterior right ribs noted on the CT exam and are not well delineated. No acute fracture. Soft tissues: The soft tissue mass in the right perihilar region noted on the prior examination is suggested but is partially obscured by obliquity. Tubes, lines and devices: Left subclavian approach biventricular defibrillator pacer. IMPRESSION: 1. The soft tissue mass in the right perihilar region noted on the prior examination is suggested but is partially obscured by obliquity. 2. Right basilar opacity, similar to increased from the previous examination. 3. The erosive changes involving the posterior right ribs noted on the CT exam and are not well delineated. Electronically signed by: Edi David MD 02/27/25 23:04 PM
[2025-02-28] MEDS: SODIUM CHLORIDE 0.9% 500 ML IV ONE ×2 (00:11→12:18)
[2025-02-28] MEDS: MoRPHine SULFATE 2 MG/ML CARP IV STA (00:12)
--- NOTE | 2025-02-28 00:12 | History & Physical Report ---
Date of Service February 28, 2025 Assessment & Plan (1) Fall: (2) Deep laceration of knee: (3) Skin tear of right upper extremity: (4) ARTURO (acute kidney injury): (5) Acute hypotension: (6) Atrial fibrillation: Plan: 84yo female with history of diffusely metastatic cancer of the breast on [facility] presenting from home after a ground level fall at home resulting in laceration of right knee and skin tear of right forearm. Laceration was repaired in the ER, right forearm bandage placed. Patient with hypotension in the ER. Has been unable to ambulate when previously able to use a walker. #Fall / Deep laceration of knee / skin tear RUE -Observation to medical -Wound care -Ice to the arm and knee if patient desires -Pain control - continue home Oxycodone 10mg po q 6 hours scheduled -Morphine 2-4mg IV q 3 hours PRN based on pain scale -Tylenol PRN -Dulcolax and Miralax PRN constipation #Hypotension - patient with low blood pressures in the ER, 80/50s. Has been given 1L NSS thus far -Cautious use of fluids - patient with nonischemic cardiomyopathy EF 50-55% on last echo -Albumin 25% x 50mL -Encourage PO intake -Will hold patient's Carvedilol for now #ARTURO - BUN=40, Cr=1.67. Patient appears dry on clinical exam. Has thus far received 1L NSS -Albumin 25% x 50mL ordered -Avoid nephrotoxic agents -Renal dosing where needed -Holding Apixaban for now #Hyponatremia - likely secondary to dehydration, diuretic use - Fo=593 -Holding Lasix and Spironolactone for now #Heart failure with reduced EF - patient continues on her diuretics to manage symptom of edema -Hold Carvedilol for now due to hypotension -Continue Jardiance 10mg po qAM -Lasix and potassium to resume 03/01/25 AM - 80mg -Hold Spironolactone for now #History of VTE -Hold Xarelto for now in setting of ARTURO In accordance with patient's wishes will limit further blood draws and extensive workup. DNR/DNI/Hospice Care per discussion with patient and family at bedside History of Present Illness Chief Complaint: fell, laceration to right knee Primary Care Provider: DO Ptaience Dorado is a pleasant 84yo female with history of diffusely metastatic breast cancer on home hospice presenting after a fall at home. Patient does not fully recall the details prior to the event, thinks that maybe she lost her balance and fell forward onto her knees. She sustained a deep laceration to the right knee and a skin tear to the right forearm. She denies LOC or head trauma. Patient's son and grand daughter are at bedside and assist with history. No additional complaints at this time. Prior to the fall patient was able to ambulate in the home with a walker. Has been unable to walk since the fall. Oxycodone was recently increased from 5 --> 10mg po q 6 hours scheduled for management of cancer related pain. Pain has improved with this medication change. Patient is on Home Hospice In the ER she is afebrile, low blood pressure 80/50s ER Course: Cefazolin NSS x 1000mL Morphine 2mg IV Lido/Epi Morphine 2mg IV Allergies Allergy/AdvReac Type Severity Reaction Status Date / Time erythromycin base AdvReac Intermediate HEARING Verified 02/07/25 12:19 LOSS Penicillins AdvReac Intermediate Numbness Verified 02/07/25 12:19 cephalexin AdvReac Mild VAGINAL Verified 02/07/25 12:19 ITCHING Home Medications Medication Instructions Recorded Confirmed Type carvedilol 25 mg tablet 25 mg PO BID #180 tabs 02/06/24 02/27/25 Rx empagliflozin 10 mg tablet 10 mg PO QAM #90 tabs 04/05/24 02/27/25 Rx (Jardiance) rivaroxaban 20 mg tablet (Xarelto) 20 mg PO PM #90 tabs 04/05/24 02/27/25 Rx spironolactone 25 mg tablet 25 mg PO QAM #90 tabs 05/05/24 02/27/25 Rx furosemide 40 mg tablet 80 mg (2 x 40 mg) PO QAM #90 tabs 06/08/24 02/27/25 Rx potassium chloride 10 mEq 20 meq (2 x 10 mEq) PO TID #90 tabs 07/01/24 02/27/25 Rx tablet,extended release (Klor-Con) tiotropium 2.5 mcg-olodaterol 2.5 2 puff inhalation DAILY #4 grams 11/29/24 02/27/25 Rx mcg/actuation mist for inhalation (Stiolto Respimat) Portable Oxygen #1 ea 12/03/24 02/27/25 Rx oxycodone 10 mg tablet,oral ONLY 10 mg PO Q4 02/27/25 02/27/25 History (not feeding tubes) Past Med/Surg History Problem List Acute dehydration (Acute) Acute hypotension (Acute) ARTURO (acute kidney injury) (Acute) Deep laceration of knee (Acute) Skin tear of right upper extremity (Acute) Fall (Acute) Dizziness (Acute) Edema of both legs 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 Presumed cancer Cholelithiasis (Acute) CKD (chronic kidney disease) stage 3, GFR 30-59 ml/min History of alcohol abuse Venous insufficiency Cirrhosis Insomnia Anticoagulant long-term use Cardiomyopathy ICD (implantable cardioverter-defibrillator), biventricular, in situ Atrial fibrillation Permanent. S/P BiV ICD 2010, rate controlled by AV calos ablation 2013. CHF (congestive heart failure) Chronic systolic, EF 40-45% Medical History CHL (conductive hearing loss) Mixed hearing loss of left ear CKD (chronic kidney disease) CHF (congestive heart failure) History of alcohol abuse quit 2019 History of GI bleed Hx of breast cancer Atrial fibrillation pt can't recall when first dx, been at least since 2009 > follows with Dr. Frank Hypokalemia Left bundle branch block (LBBB) Non-ischemic cardiomyopathy s/p Bi-V ICD implantation 2010. EF 40-45% Lyme disease Surgical History History of left cataract extraction History of hysterectomy History of tooth extraction Hx of bilateral mastectomy hx of implants, then removal History of hand surgery right hand History of cardiac radiofrequency ablation After failed cardioversion, AV calos ablation 02/24/2014 History of cardiac cath [facility] > 2019 > no stents History of colonoscopy History of cardioversion 01/2014 for A fib. Was in NSR for less than 24hrs. H/O hysterectomy for benign disease AICD (automatic cardioverter/defibrillator) present [employer] > remote checks History of partial colectomy (~2005) for colon perf. no cancer > hx colostomy then reversed Family History Mother Breast cancer Father Lung cancer Other Family history non-contributory Denies family history of Ovarian cancer Diabetes Myocardial infarction Colorectal cancer Stroke Social History Smoking Status: Former smoker Tobacco Type: Cigarettes Age Started Using Tobacco: 20; Age Quit Using Tobacco: 40; packs per day: 5; Cigarettes Per Day: 6-10 cig per day; Second Hand Exposure: No; Do You Dip or Chew Tobacco: No; Hx Alcohol Use: No Hx Substance Use: No Preferred Language: Nepali Communication Ability: Effective Communication Ability Comment: hard of hearing Visual Impairment: Limited Hearing Ability: Hard of Hearing Mill [employer] Required: No Beliefs That Will Affect Care: None marital status: Current Living Situation: Alone Current Living Situation Comment: With son current occupational status: retired How many Children do You have: 1 Feels Safe at Home: Yes Childhood Exposure to Second-Hand Smoke: Yes Diet: low salt and regular caffeine: Yes during the past year weight has: decreased > 10 lbs Dental Care, Regularly: Yes Physical Activity Frequency: Does not Exercise Physical Activity Frequency Comment: walks Seatbelt Use: always Sunscreen Use: Yes Assistive Devices: Cane and Hearing Aid - Right Review of Systems Review of Systems: All systems reviewed & are unremarkable except as noted in HPI & below Physical Exam Physical Exam: General: patient chronically ill in appearance, hard of hearing Skin: skin tear, dressing in place on right forearm, sutures placed in right knee, no further bleeding HEENT: NC/AT, PERRL, EOMI, anicteric sclera, conjunctiva without injection, external ear normal to inspection and nontender, nares patent, dry mucus membranes, dentition intact, no oropharyngeal lesions, neck supple, trachea midline, no LAD, no thyromegaly, no JVD Heart: +S1/S2, regular, no m/r/g, pacer in place Lungs: equal air entry bilaterally, no rales/rhonchi/wheezes Abd: +BS, soft, NT/ND, no masses/organomegaly/ascites Ext: chronic edema with venous stasis changes Neuro: nonfocal, hard of hearing Results & Data Results & Data Vital Signs (Past 12 Hours) Vital Signs Temp Pulse Pulse Resp BP BP Pulse Ox 02/27/25 22:00 70 18 88/58 L 94 02/27/25 21:11 86/52 L 02/27/25 21:10 70 22 80/56 L 91 02/27/25 20: 35.7 C L 85 18 87/49 L 94 02/27/25 20:26 92 H O2 Del Method 02/27/25 22:00 Room Air 02/27/25 21:11 02/27/25 21:10 Room Air 02/27/25 20:31 Room Air 02/27/25 20:26 Laboratory Results Laboratory Results WBC 7.67 K/ul (4.8-10.8) 02/27/25 20: RBC 4.04 M/uL (4.20-5.40) L 02/27/25 20: Hgb 12.5 g/dL (12.0-16.0) 02/27/25 20: Hct 37.8 % (37.0-47.0) 02/27/25 20: MCV 93.6 fL (80.0-100.0) 02/27/25 20: MCH 30.9 pg (25.0-34.0) 02/27/25 20: MCHC 33.1 g/dL (32.0-36.0) 02/27/25 20: RDW Std Deviation 56.3 fL (36.4-46.3) H 02/27/25 20: RDW Coeff of Yogesh 16.4 % (11.5-14.5) H 02/27/25 20: Plt Count 202 K/uL (130-400) 02/27/25 20: MPV 9.8 fL (9.4-12.4) 02/27/25 20: Immature Gran % (Auto) 0.4 % 02/27/25 20: Neut % (Auto) 83.8 % 02/27/25 20: Lymph % (Auto) 7.8 % 02/27/25 20: Spink % (Auto) 7.3 % 02/27/25 20: Eos % (Auto) 0.4 % 02/27/25 20:31 Baso % (Auto) 0.3 % 02/27/25 20: Neut # (Auto) 6.43 K/uL (1.40-6.50) 02/27/25 20: Lymph # (Auto) 0.60 K/uL (1.20-3.40) L 02/27/25 20: Spink # (Auto) 0.56 K/uL (0.11-0.59) 02/27/25 20: Eos # (Auto) 0.03 K/uL (0.00-0.50) 02/27/25 20: Baso # (Auto) 0.02 K/uL (0.00-0.20) 02/27/25: Immature Gran # (Auto) 0.03 K/uL (0.01-0.20) 02/27/25 20: PT 12.7 Seconds (9.0-12.0) H 02/27/25 20: INR 1.2 (0.9-1.1) H 02/27/25 20: APTT 30 Seconds (21-31) 02/27/25 20: PTT Ratio 1.1 02/27/25 20: Sodium 127 mmol/L (136-145) L 02/27/25 20: Potassium 4.7 mmol/L (3.5-5.1) 02/27/25 20: Chloride 92 mmol/L (98-107) L 02/27/25 20: Carbon Dioxide 27 mmol/L (21-32) 02/27/25 20: Anion Gap 8 (3-11) 02/27/25 20: BUN 40 mg/dl (6-23) H 02/27/25 20: Creatinine 1.67 mg/dl (0.6-1.2) H 02/27/25 20: Est Cr Clr Drug Dosing 29.7 ml/min 02/27/25 20: eGFR 30.02 02/27/25 20:31 BUN/Creatinine Ratio 24.0 (10-20) H 02/27/25 20: Glucose 120 mg/dl (70-99(Fasting)) H 02/27/25 20: Lactate 2.0 mmol/L (0.4-2.0) 02/27/25 20: Calcium 9.6 mg/dl (8.6-10.3) 02/27/25 20: Magnesium 2.2 mg/dl (1.7-2.4) 02/27/25 20:31 Total Bilirubin 1.3 mg/dl (0.2-1.0) H 02/27/25 20:31 AST 13 U/L (13-39) 02/27/25 20: ALT 5 U/L (7-52) L 02/27/25 20:31 Alkaline Phosphatase 102 U/L (34-104) 02/27/25 20: Troponin I High Sens 7.0 pg/ml (0-14) 02/27/25 20: B-Natriuretic Peptide 382 pg/ml (0-100) H 02/27/25 20:31 Total Protein 7.1 gm/dl (6.0-8.3) 02/27/25 20: Albumin 3.3 gm/dl (3.4-5.0) L 02/27/25 20: Globulin 3.8 gm/dl (2.5-4.0) 02/27/25 20: Albumin/Globulin Ratio 0.9 (0.9-2) 02/27/25 20: Procalcitonin 0.06 ng/ml (0-0.5) 02/27/25 20:31 Impressions Abdomen/Pelvis CT 02/27/25 20:29 Exam(s): CT ABDOMEN + PELVIS With Contrast IV Amt: 93cc opti 320 EXAM: CT Abdomen and Pelvis With Intravenous Contrast CLINICAL HISTORY: fall. TECHNIQUE: Axial computed tomography images of the abdomen and pelvis with intravenous contrast. CTDI is 34 mGy and DLP is 1285 mGy-cm. Automated exposure control was utilized for the study. A dose lowering technique was utilized adhering to the principles of ALARA. CONTRAST: Patient received 93cc opti 320 of IV contrast COMPARISON: No relevant prior studies available. FINDINGS: Artifacts: Scatter artifact likely related to patient's arm position. Limitations: There is diffuse respiratory artifact, which degrades image quality throughout the examination. Lung bases: Rounded solid mass in the right lower lobe.. There is a soft tissue mass involving the right pleura with extension into the extrapleural fat measuring 1.7 x 2.6 cm. Pleural space: Small volume right hypodense pleural effusion. Heart: Massive cardiomegaly, most prominent involving the atria, right- [id number]. Mild pericardial effusion. ABDOMEN: Liver: There is prominent reflux of contrast into the intrahepatic IVC and hepatic veins. The intrahepatic IVC is markedly dilated measuring 4. 2 x 4.1 cm. No evidence for acute traumatic injury to the liver. Gallbladder and bile ducts: There is a gallstone in the gallbladder wall fundus which is located in the pelvis, measuring 2.1 x 2.7 cm. No ductal dilation. Pancreas: The pancreas is grossly unremarkable, accounting for respiratory artifact. No ductal dilation. Spleen: The spleen appears intact, accounting for artifact. No perisplenic fluid. Adrenals: Normal. No mass. Kidneys and ureters: The kidneys demonstrate no evidence for traumatic injury, pyelonephritis or hydronephrosis. Incidental cortical cysts. Stomach and bowel: No obvious evidence for traumatic injury to the bowel. No bowel obstruction with prominent stool burden. Postsurgical changes involving the sigmoid colon. PELVIS: Appendix: No findings to suggest acute appendicitis. Bladder: Normal. No mass. Reproductive: Unremarkable as visualized. ABDOMEN and PELVIS: Intraperitoneal space: No free intraperitoneal fluid. No definite pneumoperitoneum. Retroperitoneal space: No definite retroperitoneal hematoma. Bones/joints: Probable interosseous hemangioma involving the L2 vertebral body. No acute osseous traumatic injury or abnormal alignment. Soft tissues: Diffuse soft tissue edema suggesting anasarca. No appreciable overlying traumatic soft tissue injury, accounting for diffuse edema. Vasculature: Atherosclerotic calcification of the aorta. No dissection or aneurysm. Lymph nodes: Normal. No enlarged lymph nodes. IMPRESSION: 1. Evaluation for traumatic injury is limited by diffuse respiratory artifact. No obvious significant acute traumatic injury to the abdomen or pelvis. 2. Rounded solid mass in the right lower lobe.. There is a soft tissue mass involving the right pleura with extension into the extrapleural fat measuring 1.7 x 2.6 cm. The primary consideration is metastatic disease to the pleura. This raises the concern for a lung neoplasm in the right lower lobe. 3. Diffuse soft tissue edema suggesting anasarca. Electronically signed by: Edi David MD 02/27/25 22:[address] 02/27/25 20:29 Exam(s): CT C SPINE EXAM: CT Cervical Spine Without Intravenous Contrast CLINICAL HISTORY: fall. TECHNIQUE: Axial computed tomography images of the cervical spine without intravenous contrast. CTDI is 34 mGy and DLP is 1285 mGy-cm. Automated exposure control was utilized for the study. A dose lowering technique was utilized adhering to the principles of ALARA. COMPARISON: No relevant prior studies available. FINDINGS: Vertebrae: The vertebral bodies are intact without acute osseous traumatic injury. No anterolisthesis or retrolisthesis is identified. The facet joints are well aligned without subluxation or dislocation. The pedicles, transverse processes and spinous processes are intact. Bilateral chronic facet hypertrophic arthropathy incidentally noted. Discs/spinal canal/neural foramina: Incidental chronic appearing mild multilevel disc spondylosis noted with narrowing and marginal hypertrophic changes. No significant acute central canal stenosis identified. Soft tissues: Normal. Lung apices: The included lung apices demonstrate no evidence for acute traumatic injury. Left apical capping noted anteriorly. IMPRESSION: No acute osseous traumatic injury or significant abnormal alignment involving the cervical spine. Electronically signed by: Edi David MD 02/27/25 22:[address] 02/27/25 20:29 Exam(s): CT CHEST With Contrast IV Amt: 93cc opti 320 EXAM: CT Chest With Intravenous Contrast CLINICAL HISTORY: fall. TECHNIQUE: Axial computed tomography images of the chest with intravenous contrast. CTDI is 34 mGy and DLP is 1285 mGy-cm. Automated exposure control was utilized for the study. A dose lowering technique was utilized adhering to the principles of ALARA. CONTRAST: Patient received 93cc opti 320 of IV contrast COMPARISON: No relevant prior studies available. FINDINGS: Artifacts: Scatter artifact likely related to patient's arm position. Limitations: There is respiratory artifact, which degrades image quality on multiple image slices. Lungs: There are pleural-based masses involving the posterior aspect of the right lung with invasion of the extrapleural fat in erosive destruction of the adjacent ribs. The largest structure is noted near the level of the consuelo measuring 2.6 x 4 cm and invades the 7th rib and minimally invades the 6th rib. There are at least 2 additional lesions caudally with involvement of the right 9th rib. There is a rounded mass involving the posteromedial aspect of the right lower lobe measuring 3.7 x 6.2 x 5.8 cm with an adjacent smaller satellite lesion noted inferomedially measuring 2.2 cm. No pulmonary contusive injury. Pleural space: Trace hypodense right pleural effusion noted. No pneumothorax. Heart: Massive cardiomegaly, most prominently involving the atria, [id number]-[id number], with the right atrium measuring 12.3 x 13.1 cm in size on a single transaxial image. Mild pericardial effusion. No significant coronary artery calcifications. Mediastinum: No evidence for mediastinal traumatic injury. Bones/joints: No traumatic rib fracture. The thoracic vertebral bodies are intact. The sternum is intact. Soft tissues: Normal. Vasculature: Atherosclerotic disease. No definite evidence for aortic dissection, accounting for suboptimal opacification. Lymph nodes: Normal. No enlarged lymph nodes. Tubes, lines and devices: Left subclavian approach biventricular defibrillator pacer noted. IMPRESSION: 1. Accounting for respiratory artifact, no definite significant acute traumatic injury to the chest/thorax. 2. There are pleural-based masses involving the posterior aspect of the right lung with invasion of the extrapleural fat in erosive destruction of the adjacent ribs. The largest structure is noted near the level of the consuelo measuring 2.6 x 4 cm and invades the 7th rib and minimally invades the 6th rib. There are at least 2 additional lesions caudally with involvement of the right 9th rib. Suspect metastatic disease. 3. There is a rounded mass involving the posteromedial aspect of the right lower lobe measuring 3.7 x 6.2 x 5.8 cm with an adjacent smaller satellite lesion noted inferomedially measuring 2.2 cm. The primary consideration is a primary lung carcinoma. 4. Massive cardiomegaly, most prominently involving the atria, right- [id number]-[id number], with the right atrium measuring 12.3 x 13.1 cm in size on a single transaxial image. Mild pericardial effusion. 5. Trace hypodense right pleural effusion noted. Electronically signed by: Edi David MD 02/27/25 22:29 PM Chest X-Ray 02/27/25 20:29 Exam(s): XR CXR 1 VIEW EXAM: XR Chest, 1 View CLINICAL HISTORY: Sepsis. TECHNIQUE: Frontal view of the chest. COMPARISON: CT chest performed earlier; portable chest 01/07/2025 FINDINGS: Lungs: Right basilar opacity, similar to increased from the previous examination. Pleural space: The right pleural effusion noted on the CTA exam is suggested. No pneumothorax Heart: Massive cardiomegaly, similar to larger from the previous exam. Mediastinum: Limited by obliquity. Bones/joints: The erosive changes involving the posterior right ribs noted on the CT exam and are not well delineated. No acute fracture. Soft tissues: The soft tissue mass in the right perihilar region noted on the prior examination is suggested but is partially obscured by obliquity. Tubes, lines and devices: Left subclavian approach biventricular defibrillator pacer. IMPRESSION: 1. The soft tissue mass in the right perihilar region noted on the prior examination is suggested but is partially obscured by obliquity. 2. Right basilar opacity, similar to increased from the previous examination. 3. The erosive changes involving the posterior right ribs noted on the CT exam and are not well delineated. Electronically signed by: Edi David MD 02/27/25 23:[address] 02/27/25 20:29 Exam(s): CT HEAD Without Contrast EXAM: CT Head Without Intravenous Contrast CLINICAL HISTORY: fall. TECHNIQUE: Axial computed tomography images of the head/brain without intravenous contrast. CTDI is 34 mGy and DLP is 1285 mGy-cm. Automated exposure control was utilized for the study. A dose lowering technique was utilized adhering to the principles of ALARA. COMPARISON: CT Head dated 10/19/2024 FINDINGS: Limitations: There is motion artifact, which degrades image quality throughout the examination. Brain: No definite intracranial hemorrhage; evaluation for subtle extra-axial pathology along the margins of the parenchyma is limited in regions of streak motion artifact. No significant mass effect identified. There are a few areas of decreased attenuation in the deep cerebral white matter consistent with mild small vessel ischemic/degenerative changes. The cerebral and cerebellar sulci are mildly prominent consistent with mild brain atrophy. Ventricles: No midline shift or significant effacement of the ventricles. Bones/joints: No definite skull fracture. Soft tissues: No significant overlying soft tissue traumatic injury identified. No radiopaque foreign body or subcutaneous emphysema. Vasculature: Atherosclerotic disease. Sinuses: Unremarkable as visualized. No acute sinusitis. Mastoid air cells: Unremarkable as visualized. No mastoid effusion. IMPRESSION: No definite intracranial hemorrhage, accounting for limitations with motion artifact, as detailed above. No appreciable mass effect or midline shift. Electronically signed by: Edi David MD 02/27/25 22:30 PM Knee X-Ray 02/27/25 20:29 Exam(s): XR RIGHT KNEE, 1-2 views EXAM: XR Right Knee, 1 or 2 Views CLINICAL HISTORY: large laceration. TECHNIQUE: Frontal and/or lateral views of the right knee. COMPARISON: Bilateral knees 04/09/2024 FINDINGS: Bones/joints: Normal. No acute fracture. No dislocation. Soft tissues: Laceration injury noted involving the anterior soft tissues extending subjacent to the inferior margin of the patella. No radiopaque foreign body. Diffuse subcutaneous edema and soft tissue swelling, more prominent from the previous examination. IMPRESSION: 1. Laceration injury noted involving the anterior soft tissues extending subjacent to the inferior margin of the patella. No radiopaque foreign body. No acute osseous abnormality. 2. Diffuse subcutaneous edema and soft tissue swelling, more prominent from the previous examination. The reported laceration is not clearly delineated. Electronically signed by: Edi David MD 02/27/25 23:[address] 02/27/25 20:42 Exam(s): CT RIGHT KNEE Without Contrast EXAM: CT Right Lower Extremity Without Intravenous Contrast, Knee CLINICAL HISTORY: r/o traumatic arthrotomy. TECHNIQUE: Axial computed tomography images of the right knee without intravenous contrast. CTDI is 34 mGy and DLP is 1285 mGy-cm. Automated exposure control was utilized for the study. A dose lowering technique was utilized adhering to the principles of ALARA. COMPARISON: No relevant prior studies available. FINDINGS: Bones/joints: Subtle superficial laceration injury involving the anterior knee medial to the patella, estimated at less than 1 cm in depth. No radiopaque foreign body. No hematoma. Trace suprapatellar joint effusion is hypodense without a layering hematocrit. Moderate joint space narrowing involving the medial compartment. Mild degenerative changes of the lateral and patellofemoral compartment. No acute fracture. No dislocation. Soft tissues: Diffuse subcutaneous edema and fat stranding noted throughout the prominent soft tissues of the knee joint with overlying dermal thickening. The appearance is similar to the minimally included medial aspect of the contralateral knee. There superficial prominent tortuous presumed venous structures noted. Fat atrophy of the regional muscles. IMPRESSION: 1. Subtle superficial laceration injury involving the anterior knee medial to the patella, estimated at less than 1 cm in depth. No radiopaque foreign body. No hematoma. No extension of the joint space. 2. Diffuse subcutaneous edema and fat stranding noted throughout the prominent soft tissues of the knee joint with overlying dermal thickening. The appearance is similar to the minimally included medial aspect of the contralateral knee. There superficial prominent tortuous presumed venous structures noted. The appearance raises suspicion for chronic underlying venous stasis changes in addition to potential traumatic edema. Electronically signed by: Edi David MD 02/27/25 22:33 PM Code Status & VTE Plan VTE Prophylaxis Plan VTE Prophylaxis will be ordered: Yes PG Care Time/CCT Total # of Minutes Spent Total Time Spent with Patient: Total time spent is greater than 50% in coordination of care (as documented) at patient's floor/unit and/or counseling patient: Coding Level of Care Code 12309 INT INP/OBS CARE 2/55MIN Diagnoses Fall W19.XXXA Deep laceration of knee S81.019A Skin tear of right upper extremity S41.111A ARTURO (acute kidney injury) N17.9 Acute hypotension I95.9 Atrial fibrillation I48.91
[2025-02-28] MEDS ORDERED: ACETAMINOPHEN 325 MG TAB PO PRN (01:33)
[2025-02-28] MEDS ORDERED: POLYETHYLENE (MIRALAX) 17 GM PACK PO PRN (01:33)
[2025-02-28] MEDS ORDERED: ONDANSETRON INJ 2 MG/ML 2 ML VIAL IV PRN (01:33)
[2025-02-28] MEDS ORDERED: MoRPHine SULFATE 2 MG/ML CARP IV PRN (01:33)
[2025-02-28] MEDS ORDERED: MoRPHine SULFATE 4 MG/ML 1 ML CARP\\VIAL IV PRN (01:33)
[2025-02-28] MEDS: ALBUMIN 25% 25 GM/100 ML VIAL IV ONE ×2 (02:00→21:34)
[2025-02-28 08:27] VITALS: TEMP 97.7
[2025-02-28] MEDS: EMPAGLIFLOZIN 10 MG TAB PO SCH (08:44)
[2025-02-28] MEDS: UMECLIDINIUM/VILANTEROL 62.5/25MCG 7 PUFFS/INHALER INH SCH (08:45)
--- NOTE | 2025-02-28 10:53 | Hospitalist Progress Note ---
Date of Service February 28, 2025 Assessment & Plan (1) Fall: (2) Deep laceration of knee: (3) Skin tear of right upper extremity: (4) ARTURO (acute kidney injury): (5) Acute hypotension: (6) Atrial fibrillation: Plan: 84yo female with history of diffusely metastatic cancer of the breast on [facility] presenting from home after a ground level fall at home resulting in laceration of right knee and skin tear of right forearm. Laceration was repaired in the ER, right forearm bandage placed. Patient with hypotension in the ER. Has been unable to ambulate when previously able to use a walker. #Fall / Deep laceration of knee / skin tear RUE -Observation to medical -Wound care -Ice to the arm and knee if patient desires -Pain control - continue home Oxycodone 10mg po q 6 hours scheduled -Morphine 2-4mg IV q 3 hours PRN based on pain scale -Tylenol PRN -Dulcolax and Miralax PRN constipation #Hypotension - patient with low blood pressures in the ER, 80/50s. Has been given 1L NSS thus far -Cautious use of fluids - patient with nonischemic cardiomyopathy EF 50-55% on last echo -Albumin 25% x 50mL -Encourage PO intake -Will hold patient's Carvedilol for now -giving 500cc IVF fluid bolus this am #ARTURO - BUN=40, Cr=1.67. Patient appears dry on clinical exam. Has thus far received 1L NSS -Albumin 25% x 50mL ordered -Avoid nephrotoxic agents -Renal dosing where needed -Holding Apixaban for now #Hyponatremia - likely secondary to dehydration, diuretic use - Sm=949 -Holding Lasix and Spironolactone for now #Heart failure with reduced EF - patient continues on her diuretics to manage symptom of edema -Hold Carvedilol for now due to hypotension -Continue Jardiance 10mg po qAM -Lasix and potassium to resume 03/01/25 AM - 80mg -Hold Spironolactone for now #History of VTE -Hold Xarelto for now in setting of ARTURO In accordance with patient's wishes will limit further blood draws and extensive workup. DNR/DNI/Hospice Care per discussion with patient and family at bedside D/C home once PT evaluation completed, and BP improved. Admission and Anticipated Discharge Date Admission Date: February 28, 2025 Subjective Pt still complaining of right sided rib pain. Review of Systems Review of Systems: CONST: Negative for fever, body aches and chills. HENT: Negative for neck pain/stiffness, headache, congestion, sore throat, swelling. EYES: Negative for discharge/pain or vision changes. RESP: Negative for cough/hemoptysis and shortness of breath. CV: Negative chest pain, difficulty breathing, palpitations. ABD: Negative pain, nausea, vomiting. : Negative increase frequency, dysuria, blood in urine or stool. MUSC: Negative for muscle aches, edema. SKIN: Negative rash, lesions/sores. NEURO: Negative headache, dizziness, weakness. Physical Exam Physical Exam: GENERAL APPEARANCE NAD, activity normal for age, well developed/ well nourished, no cyanosis, pallor, or diaphoresis. EYES lids/conjunctiva normal. EARS/NOSE/THROAT Mucous membranes moist, nares normal, lips/teeth normal uvula midline without oral pharyngeal erythema, exudate or swelling TMs normal bilaterally. No lymphangitis/lymphedema. HEAD/NECK normocephalic atraumatic, no facial trauma, neck is supple. RESPIRATORY respiratory effort normal, speaks in full sentences, no tripod position, no accessory muscle use. Lungs clear to auscultation without rhonchi, wheezes, rales CARDIAC Regular rate and rhythm, no edema. ABDOMINAL Soft, ND/NT. No evidence of fluid wave. No pulsatile masses on exam, rebound tenderness, Wing sign or pain over Mcburney's point. MUSCLES/EXTREMITIES No abnormal range of motion, no swelling. SKIN Warm, pink and dry. No rashes, dermatoses, petechiae or lesions. NEUROLOGICAL Speech is clear and appropriate. Normal level of consciousness. Gait and coordination are normal. 5/5 strength in all extremities. PSYCH Normal mood and affect. Judgement/competence is appropriate Results & Data Results & Data Vital Signs (Past 12 Hours) Vital Signs Temp Pulse Pulse Pulse Resp BP BP 02/28/25 10:36 88/45 L 02/28/25 08:30 02/28/25 07:45 36.5 C 69 14 02/28/25 02:20 36.4 C L 71 18 92/60 L 02/28/25 01:33 36.4 C L 71 18 92/60 L 02/28/25 01:00 70 18 85/54 L 02/28/25 00:27 70 02/28/25 00:00 70 18 BP Pulse Ox O2 Del Method 02/28/25 10:36 02/28/25 08:30 Room Air 02/28/25 07:45 83/37 L 93 Room Air 02/28/25 02:20 95 Room Air 02/28/25 01:33 94 Room Air 02/28/25 01:00 Room Air 02/28/25 00:27 02/28/25 00:00 91/59 L PG Care Time/CCT Total # of Minutes Spent Total Time Spent with Patient: Total time spent is greater than 50% in coordination of care (as documented) at patient's floor/unit and/or counseling patient: Coding Level of Care Code 45411 SUB INP/OBS CARE 2/35MIN Diagnoses Fall W19.XXXA Deep laceration of knee S81.019A Skin tear of right upper extremity S41.111A ARTURO (acute kidney injury) N17.9 Acute hypotension I95.9 Atrial fibrillation I48.91
--- NOTE | 2025-02-28 12:49 | Electrocardiogram Report ---
Test Reason : Blood Pressure : */* mmHG Vent. Rate : 70 BPM Atrial Rate : 87 BPM P-R Int : * ms QRS Dur : 170 ms QT Int : 488 ms P-R-T Axes : * -81 88 degrees QTcB Int : 527 ms Ventricular-paced rhythm Abnormal ECG When compared with ECG of 03-Sep-2024 10:54, No significant change was found Confirmed by Willem Ballesteros ([id number]) on 02/28/2025 12:49:48 PM Referred By: REFERRED SELF Confirmed By: Willem Ballesteros
[2025-02-28 20:52] VITALS: PULSE 69
[2025-03-01 00:04] VITALS: RESP 16; O2SAT 93
[2025-03-01 08:19] LABS: Hematocrit (blood only) 33.7 % (37.0-47.0); Hemoglobin 11.4 g/dL (12.0-16.0); Mean Corpuscular Hemoglobin 31.1 pg (25.0-34.0); Mean Corpuscular Volume 91.8 fL (80.0-100.0); Platelet Count 157 K/uL (130-400); RDW Standard Deviation 57.3 fL (36.4-46.3); Red Blood Count 3.67 M/uL (4.20-5.40); White Blood Count 7.70 K/ul (4.8-10.8)
[2025-03-01 08:38] LABS: Anion Gap 7.0 (3-11); Blood Urea Nitrogen 38.0 mg/dl (6-23); Calcium 9.3 mg/dl (8.6-10.3); Carbon Dioxide 24.0 mmol/L (21-32); Chloride 98.0 mmol/L (98-107); Creatinine Clr Calc Pharmacy 37.8 ml/min; Glucose 116.0 mg/dl (70-99(Fasting)); Potassium 4.4 mmol/L (3.5-5.1); Sodium 129.0 mmol/L (136-145)
--- NOTE | 2025-03-01 09:32 | Discharge Summary ---
Discharge Summary Date of Service March 01, 2025 Principal Dx & Hospital Course #1 = Principal Diagnosis (1) Fall: (2) Deep laceration of knee: (3) Skin tear of right upper extremity: (4) ARTURO (acute kidney injury): (5) Acute hypotension: (6) Atrial fibrillation: 84yo female with history of diffusely metastatic cancer of the breast on [facility] presenting from home after a ground level fall at home resulting in laceration of right knee and skin tear of right forearm. Laceration was repaired in the ER, right forearm bandage placed. Patient with hypotension in the ER. Has been unable to ambulate when previously able to use a walker. #Fall / Deep laceration of knee / skin tear RUE -Observation to medical -Wound care -Ice to the arm and knee if patient desires -Pain control - continue home Oxycodone 10mg po q 6 hours scheduled -Morphine 2-4mg IV q 3 hours PRN based on pain scale -Tylenol PRN -Dulcolax and Miralax PRN constipation #Hypotension - patient with low blood pressures in the ER, 80/50s. Has been given 1L NSS thus far -Cautious use of fluids - patient with nonischemic cardiomyopathy EF 50-55% on last echo -Albumin 25% x 50mL -Encourage PO intake -Will hold patient's Carvedilol for now -giving 500cc IVF fluid bolus -BP improved #ARTURO - BUN=40, Cr=1.67. Patient appears dry on clinical exam. Has thus far received 1L NSS -Albumin 25% x 50mL ordered -Avoid nephrotoxic agents -Renal dosing where needed -Holding Apixaban for now #Hyponatremia - likely secondary to dehydration, diuretic use - Sy=158 -Holding Lasix and Spironolactone for now #Heart failure with reduced EF - patient continues on her diuretics to manage symptom of edema -Hold Carvedilol for now due to hypotension -Continue Jardiance 10mg po qAM -Lasix and potassium to resume 03/01/25 AM - 80mg -Hold Spironolactone for now #History of VTE -Hold Xarelto for now in setting of ARTURO In accordance with patient's wishes will limit further blood draws and extensive workup. DNR/DNI/Hospice Care per discussion with patient and family at bedside D/C home once PT evaluation completed, and BP improved. Admission HPI Per Admitting Provider Patience Curry is a pleasant 84yo female with history of diffusely metastatic breast cancer on home hospice presenting after a fall at home. Patient does not fully recall the details prior to the event, thinks that maybe she lost her balance and fell forward onto her knees. She sustained a deep laceration to the right knee and a skin tear to the right forearm. She denies LOC or head trauma. Patient's son and grand daughter are at bedside and assist with history. No additional complaints at this time. Prior to the fall patient was able to ambulate in the home with a walker. Has been unable to walk since the fall. Oxycodone was recently increased from 5 --> 10mg po q 6 hours scheduled for management of cancer related pain. Pain has improved with this medication change. Patient is on Home [facility] In the ER she is afebrile, low blood pressure 80/50s ER Course: Cefazolin NSS x 1000mL Morphine 2mg IV Lido/Epi Morphine 2mg IV Discharge Exam GENERAL APPEARANCE NAD, activity normal for age, well developed/ well nourished, no cyanosis, pallor, or diaphoresis. EYES lids/conjunctiva normal. EARS/NOSE/THROAT Mucous membranes moist, nares normal, lips/teeth normal uvula midline without oral pharyngeal erythema, exudate or swelling TMs normal bilaterally. No lymphangitis/lymphedema. HEAD/NECK normocephalic atraumatic, no facial trauma, neck is supple. RESPIRATORY respiratory effort normal, speaks in full sentences, no tripod position, no accessory muscle use. Lungs clear to auscultation without rhonchi, wheezes, rales CARDIAC Regular rate and rhythm, no edema. ABDOMINAL Soft, ND/NT. No evidence of fluid wave. No pulsatile masses on exam, rebound tenderness, Wing sign or pain over Mcburney's point. MUSCLES/EXTREMITIES No abnormal range of motion, no swelling. SKIN Warm, pink and dry. No rashes, dermatoses, petechiae or lesions. NEUROLOGICAL Speech is clear and appropriate. Normal level of consciousness. Gait and coordination are normal. 5/5 strength in all extremities. PSYCH Normal mood and affect. Judgement/competence is appropriate Discharge Plan Discharge Items Patient Disposition: Home - Self-Care Reason For Visit: FALL, RIGHT KNEE LACERATION Discharge Diagnosis: right knee laceration Condition on Discharge: Fair Activity: Resume your previous activity Non-emergency contact: Primary Care Provider Call non-emergency contact if: you have any medication questions Follow-up/Referrals: Rajesh Badillo, [Primary Care Provider] - Diet: Regular Addtl Attending Provider Instructions: Follow up with PMD in 1 week Pending Studies at Discharge: No Stand-Alone Forms: My [facility], Smoking Cessation Medications and DC Order Prescriptions: Continued Jardiance 10 mg tablet 10 mg PO QAM Qty: 90 3RF Xarelto 20 mg tablet 20 mg PO PM Qty: 90 3RF Rx Instructions: must administer with evening meal spironolactone 25 mg tablet 25 mg PO QAM Qty: 90 3RF furosemide 40 mg tablet 80 mg PO QAM Qty: 90 3RF potassium chloride [Klor-Con 10] 10 mEq tablet extended release 20 meq PO TID Qty: 90 1RF Stiolto Respimat 2.5-2.5 mcg/actuation mist 2 puff inhalation DAILY Qty: 4 3RF (DME) Portable Oxygen Misc See Rx Instructions .MEDSUPPLY Qty: 1 0RF Rx Instructions: Oxygen 2 liters continuous via nasal cannula [id number] with portable concentrator. AMPARO 99 oxycodone 10 mg Tablet, Oral Only 10 mg PO Q4 No Action carvedilol 25 mg tablet See Rx Instructions .ROUTE .COMPLEX Qty: 180 3RF Dose Instruction: TAKE 1 TABLET BY MOUTH TWICE DAILY Rx Instructions: TAKE 1 TABLET BY MOUTH TWICE DAILY Discharge Orders: Discharge Order (Routine); Ordered 03/01/25 Ordered By: Saad Burns Admission Data Admit Date/Time: 02/28/25 00:11 Attending Provider: Indira Reis Admit Provider: Indira Reis Primary Care Provider: Rajesh Badillo Other Providers: Indira Reis Hospital Stay Data Consultations 02/27/25 23:47 ED Decision to Admit Stat Diagnostic Imagining Performed 02/27/25 20:29 CT Abd and Pelvis [CT abd pelvis IV con only] Stat CT cervical spine wo con Stat CT chest diagnostic w con Stat CT head/brain wo con Stat 02/27/25 20:42 CT knee RT wo con Stat Pending Results Patient Have Any Pending Studies at Discharge: No Discharge Instructions Given to Patient (Per Discharging Provider) Follow up with PMD in 1 week Total Time Total Time Spent Total Time Spent (In Minutes): 50 Coding Level of Care Code 12362 INP/OBS DISCH >30 MIN Diagnoses Fall W19.XXXA Deep laceration of knee S81.019A Skin tear of right upper extremity S41.111A ARTURO (acute kidney injury) N17.9 Acute hypotension I95.9 Atrial fibrillation I48.91
[2025-03-01] MEDS: FUROSEMIDE 80 MG TAB PO SCH (09:48)
[2025-03-01] MEDS: POTASSIUM CHLORIDE 10 MEQ TABCR PO SCH (09:55)
[2025-03-01 15:04] VITALS: BP 78/46
== END 2025-03-01 15:21 | disposition home or self-care (01) ==
LOC: SUATTDRO → 3W 20:19 → ED 20:19 → 3W 02-28 01:00